=== PATIENT | female | born 1940 | race Caucasian/White ===

== ENCOUNTER 2022-07-19 11:20 | Inpatient (IN) ==
--- NOTE | 2022-07-19 11:39 | Emergency Department Note ---
Trauma HPI General Chief Complaint: Trauma Stated Complaint: Fall 1 wk ago, weakness Time Seen by Provider: 07/19/22 11:37 Source: patient Mode of arrival: ambulatory Limitations: altered mental status History of Present Illness HPI Narrative: Narrative: This pleasant but confused 81-year-old female with a history of COPD, coronary disease and CHF presents emerged part with complaint of fall striking the top of her head 2 weeks prior. Patient is unreliable historian. She thinks she is at [facility] but is not sure. She is not able to tell me if she has had a cough, fever, chills, nausea, vomiting, diarrhea. No further useful history is obtainable from patient only. No other bystanders at bedside for help with history. Related Data Home Medications Medication Instructions Recorded Confirmed diphenhydramine HCl 25 mg capsule 25 mg PO Q8H PRN 04/27/20 07/13/22 Previous Rx's Medication Instructions Recorded food supplemt, lactose-reduced 1 each PO TIDWMEAL #1,422 mL 05/10/20 (Ensure Original oral liquid) escitalopram oxalate 5 mg tablet 5 mg PO QHS #90 tabs 08/19/20 blood-glucose meter (True Metrix See Rx Instructions .Route 07/08/21 Glucose Meter) .COMPLEX #1 ea pen needle, diabetic 31 gauge x #1,200 ea 11/18/21/" (Comfort EZ Pen [place]) insulin glargine 100 unit/mL (3 28 unit (0.28 mL) subcut BID #15 mL 12/06/21 mL) subcutaneous pen (Basaglar KwikPen U-100 Insulin) blood sugar diagnostic (True See Rx Instructions .Route 12/12/21 Metrix Glucose Test Strip) .COMPLEX Type 2 diabetes on insulin therapy #300 strips insulin aspart 14 unit subcut .COMPLEX #15 mL 12/27/21 (niacinamide)(U-100) 100 unit/mL(3 mL) subcutaneous pen (Fiasp FlexTouch U-100 Insulin) ondansetron HCl 4 mg tablet See Rx Instructions .Route 02/07/22 .COMPLEX #30 tabs atorvastatin 80 mg tablet (Lipitor) 80 mg PO QDAY #90 tabs 02/14/22 apixaban 2.5 mg tablet (Eliquis) 2.5 mg PO BID #180 tabs 02/15/22 pantoprazole 40 mg tablet,delayed 40 mg PO QDAY #90 tabs 03/07/22 release potassium chloride 20 mEq 20 meq PO BID #180 tabs 03/16/22 tablet,extended release(part/cryst) (Klor-Con M) diltiazem HCl 360 mg capsule,24 360 mg PO QAM #30 caps 03/28/22 hr,extended release torsemide 10 mg tablet 10 mg PO .3 a day #90 tabs 03/28/22 gabapentin 600 mg tablet See Rx Instructions .Route 05/22/22 .COMPLEX #90 tabs carbidopa 10 mg-levodopa 100 mg See Rx Instructions .Route 05/29/22 tablet .COMPLEX #180 tabs albuterol sulfate 90 mcg/actuation 2 puff inhalation QID PRN 06/16/22 aerosol inhaler shortness of breath or wheezing #18 grams budesonide 160 mcg-glycopyr 9 2 inh inhalation QAM AND QPM #10.7 07/13/22 mcg-formot 4.8 mcg/actuation HFA grams inhaler (Breztri Aerosphere) hydrocodone 7.5 mg-acetaminophen 1 tab PO Q4-6H PRN pain #150 tabs 07/13/22 325 mg tablet dapagliflozin 5 mg tablet 5 mg PO QAM #90 tabs 07/17/22 spironolactone 25 mg tablet 25 mg PO QDAY #90 tabs 07/19/22 Allergies Allergy/AdvReac Type Severity Reaction Status Date / Time losartan Allergy Unknown swelling Verified 07/13/22 11:40 in legs Sulfa (Sulfonamide Allergy Unknown Verified 07/13/22 11:40 Antibiotics) metoprolol AdvReac Severe Weakness, Verified 07/13/22 11:40 dizzy, no appetite. nystatin AdvReac Intermediate states Verified 07/13/22 11:40 falls when on it. Review of Systems ROS ROS Narrative: Narrative: Limitations: ROS unobtainable due to patients medical condition (Probable underlying dementia versus acute confusion. Unable to answer basic questions other than tell me she fell and hurt the top of her head 2 weeks ago.) [facility] Narrative Patient History Narrative: Narrative: Medical/Surgical/Family History All Active Problems (Updated 07/19/22 @ 18:36 by Tanya Baer DO) Pneumonia of right lower lobe due to infectious organism (Acute) Sepsis (Acute) Dehydration (Acute) Atrial fibrillation with rapid ventricular response (Acute) Elevated troponin I level (Acute) Acute UTI (Acute) Contusion of head (Acute) Risk for falls (Acute) Edema (Acute) Panic attack (Acute) Encounter for chronic pain management (Acute) retirement current use of insulin (Acute) Type 2 diabetes mellitus with hyperglycemia (Acute) Chest wall contusion (Acute) Non-compliant patient (Acute) UTI (urinary tract infection) (Acute) Irene infection (Acute) Hypokalemia (Acute) Eczema (Acute) Atrial fibrillation (Acute) Diabetes mellitus type 2, uncontrolled, with complications (Acute) History of esophagogastroduodenoscopy (EGD) (Chronic 01/13/20) History of colonoscopy (Chronic 12/14/18) History of colposcopy (Chronic ~1996) History of shoulder surgery (Chronic ~12/2016) History of left knee replacement (Chronic) History of hernia surgery (Chronic) History of AAA (abdominal aortic aneurysm) repair (Chronic) History of cholecystectomy (Chronic) Hyperlipidemia (Chronic) Hypertension (Chronic) Menopausal symptom (Chronic) Vitamin D deficiency (Chronic) Back pain (Chronic) Insomnia (Chronic) PVD (peripheral vascular disease) (Chronic) Knee pain (Chronic) Lumbar radiculopathy (Chronic) Anxiety (Chronic) Fatigue (Chronic) Allergic rhinitis (Chronic) Depression (Chronic) Vertigo (Chronic) Tobacco user (Chronic) GERD (gastroesophageal reflux disease) (Chronic) Diabetes mellitus (Chronic) Encounter for therapeutic drug level monitoring (Chronic) Hypokalemia (Chronic) Unsteady gait (Chronic) Essential tremor (Chronic) CHF (congestive heart failure) (Chronic) History of abdominal aortic aneurysm (AAA) (Chronic) CAD (coronary artery disease) (Chronic) Pulmonary nodule (Chronic) Peripheral edema (Chronic) Diabetic peripheral neuropathy (Chronic) Ischemic colitis (Chronic) COPD (chronic obstructive pulmonary disease) (Chronic) Weakness (Chronic) Thoracic back pain (Chronic) Medical History (Updated 07/19/22 @ 18:36 by Tanya Baer DO) Allergic rhinitis Anxiety Back pain CAD (coronary artery disease) CHF (congestive heart failure) COPD (chronic obstructive pulmonary disease) Depression Diabetes mellitus Diabetic peripheral neuropathy Encounter for therapeutic drug level monitoring Essential tremor Fatigue GERD (gastroesophageal reflux disease) History of abdominal aortic aneurysm (AAA) Hyperlipidemia Hypertension Hypokalemia Insomnia Ischemic colitis Knee pain Lumbar radiculopathy Menopausal symptom Peripheral edema Pulmonary nodule PVD (peripheral vascular disease) Thoracic back pain Tobacco user Unsteady gait Vertigo Vitamin D deficiency Weakness Surgical History History of AAA (abdominal aortic aneurysm) repair History of cholecystectomy History of colonoscopy (12/14/18) Edwardo Sanchez History of colposcopy (~1996) History of esophagogastroduodenoscopy (EGD) (01/13/20) History of hernia surgery x 2 History of left knee replacement after fall and fracture leg History of shoulder surgery (~12/2016) following arm fracture Family History Other Unknown family medical history Social History Smoking Status: Current every day smoker Alcohol Intake Frequency: does not drink Substance Use: does not use Exam Narrative Narrative: Narrative: General Limitations: altered mental status General appearance: Present alert and in distress (Tachycardic and tachypneic.) Head Head: Present atraumatic, normocephalic and normal inspection Eye Eye: Present normal appearance, PERRL and EOMI; Absent scleral icterus, conjunctival injection, miosis (constriction) or mydriasis (dilation) ENT ENT: Present normal exam, mucous membranes dry (Significantly) and normal ex ternal ear exam Neck Neck: Present normal inspection, full ROM and trachea midline Chest Chest: Present normal inspection and symmetric chest wall rise; Absent tenderness Respiratory Respiratory: Present respiratory distress (Mild with respiratory rate of 28. Oxygen saturation normal at 99.), rales/crackles (Bilateral anterior marte, mid lungs) and prolonged expiratory phase; Absent wheezes, stridor or accessory muscle use Cardiovascular Cardiovascular: Present normal rhythm, tachycardia and normal heart sounds; Absent systolic murmur, diastolic murmur, rubs, gallop, clicks, +S3 or +S4 Adbominal Abdominal: Present soft, diminished bowel sounds (Potentially do to obese body habitus.) and hypoactive bowel sounds; Absent distention, tenderness, guarding, rebound or rigidity Rectal Rectal: Present deferred Bimanual: Present other (Deferred.) Extremities Extremities: Absent pedal edema, pretibial edema or cyanosis Neurological Neurological: Present alert, oriented X3 (Oriented to person but not to place or time.), CN II-XII intact, motor sensory deficit (Moves all extremity spontaneously.) and reflexes normal (Patellar reflexes, bilaterally.); Absent normal gait (Gait not evaluated.) Psychiatric Psychiatric: Present normal affect, normal mood, polite and pleasant Skin Skin: Present warm (WNL), dry and normal color Course Course Course Narrative: 1150: Advised by nursing staff that patient's Troponin T came back elevated at 0.33. Will give aspirin if not already given by EMS. On review patient's first i-stat Troponin also elevated. Will repeat for trend. 1531: Reevaluated, stable. Heart rate occasionally is down into the 120s now. We did give adenosine 6 mg IV push and initially still unchanged heart rate and heart rate was in the 135-140 range and I stopped the tracing and immediately after stopping the tracing I looked back over the monitor and she was 80 bpm. Tracing was turned back to we will able to capture about 6 beats at that rate. Does appear that there is underlying atrial flutter. We will go ahead and give Cardizem 25 delvin per cake bolus followed by Cardizem drip and titrate the drip. Once the heart rate has slowed down we will get a repeat EKG to evaluate for potential STEMI as it is difficult to tell to this point in time on her EKGs. 1800: Care of patient transferred to Dr. Burgos, oncoming ED physician, final diagnosis disposition per his recommendations and discretion. 1820: Dr. Burgos has seen the patient and asked that I go and speak with Dr. Archuleta before I leave as I have the entire story. I have contacted the front worker and asked the charge nurse to go ahead and get a hold of Dr. Murillo. Reevaluation(s) Reevaluation #1: Reevaluated, resting comfortably lying supine with heart rate in the 120s to 135 range. Appears that she is in atrial fibrillation relation. We will use adenosine to slow the rate down and get a better look at her EKG is first EKG is suggestive of some possible ischemic changes. I discussed t his with the patient. She was sleeping but easily awakened to voice. She is agreeable with the plan. RN Daljit notified and pc tech chest and Jameson are notified as well will need a twelve-lead continuous drip during the adenosine push. Time: 15:15 Reevaluation #2: Reevaluated. Stable. Heart rate improved into the upper 90s occasionally increasing up to about 100 8110. We will go ahead and increase her Cardizem drip just a little bit to get that controlled a little better. I advised patient she does have a pneumonia on the right side and that her troponin is elevated and that we will going to repeat the troponin as the previous repeat troponin did not return for some reason. This is to see whether her heart is ryan ving worsening injury or improving. She states understanding of and is in agreement with this. I did advise her that we are going to need to admit her to the hospital as well and she is agreeable with this. Time: 17:27 Consultations Consultation #1: Spoke with Dr. Hoyt, advised him of patient's presentation work-up and findings to this point time. Advised that we are waiting for repeat troponin. He like to see what that value is before he goes ahead and brings her in. I will pass this conversation on to Dr. Burgos, ED provider relieving me. Dr. Hoyt is agreeable with bringing the patient in if her troponin is not climbing. Time: 18:26 Vital Signs Vital signs: Vital Signs Temperature 98.2 F 07/19/22 11:26 Pulse Rate 143 H 07/19/22 11:26 Respiratory Rate 17 07/19/22 11:26 Blood Pressure 144/107 07/19/22 11:26 Pulse Oximetry (%) 93 07/19/22 11:26 Oxygen Delivery Method 07/19/22 11:26 Oxygen Flow Rate (L/min) 4 07/19/22 11:26 Temperature 98.2 F 07/19/22 11:26 Pulse Rate 103 H 07/19/22 17:50 Respiratory Rate 23 H 07/19/22 17:50 Blood Pressure 127/79 07/19/22 17:50 Pulse Oximetry (%) 88 L 07/19/22 17:50 Oxygen Delivery Method 07/19/22 11:26 Oxygen Flow Rate (L/min) 4 07/19/22 11:26 [facility] MDM Narrative Medical decision making narrative: Narrative: Patient presents emerged part with complaint of trauma to the head. This occurred 2 weeks prior to arrival. Patient is also tachycardic and appears to be a little bit altered. Sepsis work-up began as well. EKG did show that she has atrial fibrillation with rapid ventricular response and questionable ST elevation in the anterior leads. I did attempt adenosine 6 mg IV push and this did slow her rate down enough to analyze it for just a few beats and I was not convinced that she was having a heart attack or STEMI at that time. We did give her Cardizem subsequently 20 mg IV push and then titrated to drip to get her heart rate controlled under 100 consistently. Her first troponin is elevated at 0.33 and repeat troponin was ordered and obtained before reason did not result from the lab. Repeat troponin is pending at the time of shift change at 1815 hrs. Chest x-ray was obtained did show the patient does have an infiltrate to the right lower lobe. Blood cultures were obtained and she was started on R ocephin 2 g IV. Repeat EKG was performed after patient had a heart rate decreased to 97 bpm. This did show atrial fibrillation without any convincing evidence of STEMI. I think that her troponin elevation is likely secondary to demand related ischemia. Again repeat troponin is pending. Her CBC did show that she had a white count of 14.7 with RDW elevated which is chronic for this patient and immature granulocytes were elevated at 0.6. Left signs were elevated at 12.1%. And monocytes were elevated 1.23 with immature Gran sites high at 0.09 and absolute neutrophils elevated 11.41. Chemistry is normal except for BUN elevated at 35 and creatinine is normal at 1.0 with POC glucose elevated 314. Patient does have underlying type 2 diabetes and is insulin- dependent. His calcium was normal at 1.17 total bilirubin, direct bilirubin, AST, ALT all within normal limits. Alkaline phosphatase is elevated 147 and chronically so for this patient. Troponin T was ordered inadvertently and this was elevated 0.12. NT proBNP is elevated 5246 without any obvious congestive changes on the portable chest x-ray. Procalcitonin was elevated at 0.20 supporting a diagnosis of pneumonia and potentially sepsis as heart rate is elevated and she was tachypneic on arrival as well. Urinalysis was obtained that showed cloudy urine with a trace amount of protein and 500 glucose with urine ketones elevated 15 suggesting dehydration and urine white blood cells elevated at 13 with many bacteria and hyaline casts at 33 and culture is indicated. Patient did receive Rocephin for her pneumonia which will likely treat her UTI as well. At 1800 hrs. at the time of shift change care was transferred to Dr. Burgos, awaiting repeat troponin at this point in time to determine if this is more of a demand ischemia versus an IL. Sepsis Sepsis Identified: Yes Time Zero: 1230 Differential Diagnosis Differential Diagnosis: A. fib with RVR, IL, ACS, pneumonia, UTI, dehydration, electrolyte abnormal Medical Records Medical records reviewed: Yes I reviewed the patient's medical records. Lab Data Result diagrams: 07/19/22 11:45 Labs: Lab Results 07/19/22 07/19/22 07/19/22 Range/Units 11:37 11:38 11:45 WBC 14.7 H (4.5-11.0) K/mcL RBC 4.53 (3.59-5.38) M/mcL Hgb 13.2 (11.2-15.7) g/dL Hct 41.4 (34.1-44.9) % POC Hct 44.0 (36-48) MCV 91.4 (80.0-100.0) fL MCH 29.1 (26.0-34.0) pg MCHC 31.9 (31.0-36.0) g/dL RDW 16.2 H (11.5-14.5) % Plt Count 401 (140-440) K/mcL MPV 10.1 (8.8-12.5) fL Immature Gran % (Auto) 0.6 H (0.0-0.5) % Neut % (Auto) 77.4 (38.0-78.0) % Lymph % (Auto) 12.1 L (15.5-49.0) % Pine % (Auto) 8.4 (1.0-12.0) % Eos % (Auto) 1.0 (0.0-7.0) % Baso % (Auto) 0.5 (0.0-2.0) % Lymph # (Auto) 1.78 (1.50-4.80) K/mcL Pine # (Auto) 1.23 H (0.10-0.90) K/mcL Eos # (Auto) 0.14 (0.00-0.70) K/mcL Baso # (Auto) 0.08 (0.00-0.30) K/mcL Immature Gran # 0.09 H (0.00-0.05) K/mcl Absolute Neutrophils 11.41 H (1.80-8.00) K/mcL POC VBG pH (7.32-7.42) POC VBG pCO2 at Temp (41-51) POC VBG pO2 (25-40) POC VBG HCO3 (24-28) POC VBG Total CO2 (25-29) POC Venous O2 Sat (40-70) POC VBG Base Excess (-2-2) VBG Lactic Acid (0.5-2) POC Sodium 136 (133-145) POC Potassium 4.4 (3.3-5.1) POC Chloride 103 (96-108) POC Total CO2 27.0 (22-30) POC BUN 35 H (6-20) POC Creatinine 1.0 (0.6-1.2) POC Glucose 314 H (70-105) POC WB Ioniz Calcium 1.17 (1.16-1.32) Total Bilirubin (0.1-1.0) mg/dL Direct Bilirubin (0-0.3) mg/dL AST (<32) U/L ALT (<40) U/L Alkaline Phosphatase (39-117) U/L Troponin T (<0.03) ng/mL NT-Pro-B Natriuret Pep (<450.0) pg/mL Total Protein (5.9-8.4) gm/dL Albumin (3.2-5.2) gm/dL Globulin (2.2-3.7) gm/dL Procalcitonin (<0.10) ng/mL Urine Color Urine Appearance (Clear) Urine pH (5.0-9.0) Ur Specific [place] (1.000-1.035) Urine Protein (Negative) mg/dL Urine Glucose (UA) (Negative) mg/dL Urine Ketones (Negative) mg/dL Urine Occult Blood (Negative) florencio/mcL Urine Nitrate (Negative) Urine Bilirubin (Negative) mg/dL Urine Urobilinogen mg/dL Ur Leukocyte Esterase (Negative) /uL Urine RBC (0-3) /hpf Urine WBC (0-4) /hpf Ur Squamous Epith Cells (0-4) /hpf Urine Bacteria (0) /hpf Hyaline Casts (0-2) /lph Ur Culture Indicated? POC Troponin I 0.33 H (0.00-0.08) 07/19/22 07/19/22 07/19/22 Range/Units 11:45 11:45 11:56 WBC (4.5-11.0) K/mcL RBC (3.59-5.38) M/mcL Hgb (11.2-15.7) g/dL Hct (34.1-44.9) % POC Hct (36-48) MCV (80.0-100.0) fL MCH (26.0-34.0) pg MCHC (31.0-36.0) g/dL RDW (11.5-14.5) % Plt Count (140-440) K/mcL MPV (8.8-12.5) fL Immature Gran % (Auto) (0.0-0.5) % Neut % (Auto) (38.0-78.0) % Lymph % (Auto) (15.5-49.0) % Pine % (Auto) (1.0-12.0) % Eos % (Auto) (0.0-7.0) % Baso % (Auto) (0.0-2.0) % Lymph # (Auto) (1.50-4.80) K/mcL Pine # (Auto) (0.10-0.90) K/mcL Eos # (Auto) (0.00-0.70) K/mcL Baso # (Auto) (0.00-0.30) K/mcL Immature Gran # (0.00-0.05) K/mcl Absolute Neutrophils (1.80-8.00) K/mcL POC VBG pH (7.32-7.42) POC VBG pCO2 at Temp (41-51) POC VBG pO2 (25-40) POC VBG HCO3 (24-28) POC VBG Total CO2 (25-29) POC Venous O2 Sat (40-70) POC VBG Base Excess (-2-2) VBG Lactic Acid (0.5-2) POC Sodium (133-145) POC Potassium (3.3-5.1) POC Chloride (96-108) POC Total CO2 (22-30) POC BUN (6-20) POC Creatinine (0.6-1.2) POC Glucose (70-105) POC WB Ioniz Calcium (1.16-1.32) Total Bilirubin 0.4 (0.1-1.0) mg/dL Direct Bilirubin < 0.2 (0-0.3) mg/dL AST 15 (<32) U/L ALT 28 (<40) U/L Alkaline Phosphatase 147 H (39-117) U/L Troponin T 0.12 H* (<0.03) ng/mL NT-Pro-B Natriuret Pep 5246.0 H (<450.0) pg/mL Total Protein 7.4 (5.9-8.4) gm/dL Albumin 4.0 (3.2-5.2) gm/dL Globulin 3.4 (2.2-3.7) gm/dL Procalcitonin 0.20 H (<0.10) ng/mL Urine Color Urine Appearance (Clear) Urine pH (5.0-9.0) Ur Specific [place] (1.000-1.035) Urine Protein (Negative) mg/dL Urine Glucose (UA) (Negative) mg/dL Urine Ketones (Negative) mg/dL Urine Occult Blood (Negative) florencio/mcL Urine Nitrate (Negative) Urine Bilirubin (Negative) mg/dL Urine Urobilinogen mg/dL Ur Leukocyte Esterase (Negative) /uL Urine RBC (0-3) /hpf Urine WBC (0-4) /hpf Ur Squamous Epith Cells (0-4) /hpf Urine Bacteria (0) /hpf Hyaline Casts (0-2) /lph Ur Culture Indicated? POC Troponin I (0.00-0.08) 07/19/22 07/19/22 07/19/22 Range/Units 12:50 13:36 15:09 WBC (4.5-11.0) K/mcL RBC (3.59-5.38) M/mcL Hgb (11.2-15.7) g/dL Hct (34.1-44.9) % POC Hct (36-48) MCV (80.0-100.0) fL MCH (26.0-34.0) pg MCHC (31.0-36.0) g/dL RDW (11.5-14.5) % Plt Count (140-440) K/mcL MPV (8.8-12.5) fL Immature Gran % (Auto) (0.0-0.5) % Neut % (Auto) (38.0-78.0) % Lymph % (Auto) (15.5-49.0) % Pine % (Auto) (1.0-12.0) % Eos % (Auto) (0.0-7.0) % Baso % (Auto) (0.0-2.0) % Lymph # (Auto) (1.50-4.80) K/mcL Pine # (Auto) (0.10-0.90) K/mcL Eos # (Auto) (0.00-0.70) K/mcL Baso # (Auto) (0.00-0.30) K/mcL Immature Gran # (0.00-0.05) K/mcl Absolute Neutrophils (1.80-8.00) K/mcL POC VBG pH 7.62 H* 7.34 (7.32-7.42) POC VBG pCO2 at Temp 16.6 L* 48.0 (41-51) POC VBG pO2 87 H 24 L (25-40) POC VBG HCO3 17.1 L 25.6 (24-28) POC VBG Total CO2 18.0 L 27.0 (25-29) POC Venous O2 Sat 98.0 H 39.0 L (40-70) POC VBG Base Excess -4.0 L 0 (-2-2) VBG Lactic Acid 1.8 1.2 (0.5-2) POC Sodium (133-145) POC Potassium (3.3-5.1) POC Chloride (96-108) POC Total CO2 (22-30) POC BUN (6-20) POC Creatinine (0.6-1.2) POC Glucose (70-105) POC WB Ioniz Calcium (1.16-1.32) Total Bilirubin (0.1-1.0) mg/dL Direct Bilirubin (0-0.3) mg/dL AST (<32) U/L ALT (<40) U/L Alkaline Phosphatase (39-117) U/L Troponin T (<0.03) ng/mL NT-Pro-B Natriuret Pep (<450.0) pg/mL Total Protein (5.9-8.4) gm/dL Albumin (3.2-5.2) gm/dL Globulin (2.2-3.7) gm/dL Procalcitonin (<0.10) ng/mL Urine Color Yellow Urine Appearance Cloudy A (Clear) Urine pH 5.0 (5.0-9.0) Ur Specific [place] >= 1.030 (1.000-1.035) Urine Protein Trace A (Negative) mg/dL Urine Glucose (UA) 500 A (Negative) mg/dL Urine Ketones 15 A (Negative) mg/dL Urine Occult Blood Negative (Negative) florencio/mcL Urine Nitrate Negative (Negative) Urine Bilirubin Negative (Negative) mg/dL Urine Urobilinogen Normal mg/dL Ur Leukocyte Esterase Negative (Negative) /uL Urine RBC 0 (0-3) /hpf Urine WBC 13 H (0-4) /hpf Ur Squamous Epith Cells 0 (0-4) /hpf Urine Bacteria Many A (0) /hpf Hyaline Casts 33 H (0-2) /lph Ur Culture Indicated? yes POC Troponin I (0.00-0.08) Radiology Data Radiology results reviewed: Yes I reviewed the patient's radiology results. Radiology results narrative: CT of the head did not show any acute process and no bleeding since previous injury approximately 2 weeks prior. 1 view chest x-ray does show right lower lobe infiltrate. Please see full radiology report for full details. EKG Data EKG #1: EKG attestation: Yes I reviewed and interpreted this EKG. EKG results narrative: EKG obtained this date at 1132 hrs. interpreted by myself at 1136 hrs. shows wide QRS tachycardia 147 bpm. QRS duration is 123 ms. AL interval is absent there is a nonspecific interventricular conduction delay without right bundle spot or left bundle spot. QT is normal and QTC is prolonged at 503 ms. I do not see any distinct ST elevation however there is some questionable slight ST elevation in lead of 1 mm in leads V1, V2 and questionable ST elevation in lead V3. Inferior leads do not have any significant reciprocal changes although there is what appears to be ST depression in leads II of less than 1 mm. No acute T wave inversions noted.) Previous EKG on October 06, 2021 atrial fibrillation at a rate of 122 bpm is now replaced with a wide QRS tachycardia with minimal with prolongation with a QRS duration 123 ms on today's EKG. The appearance of the QRS complexes in the inferior leads is different and the deep ST depression in lead II and lead aVF are new when compared to previous EKG. Previous EKG did show that there was ST depression of approximately 1 mm in leads II and no ST depression in lead aVF but there was a T wave inversion lead aVF previously that is no longer present. Abnormal EKG. Question ischemic allen bishop. EKG #2: EKG results narrative: Repeat EKG obtained at 1628 hrs. interpreted by myself at 1634 hrs. does show atrial fibrillation at a rate of 97 bpm with left axis deviation with QRS duration slightly prolonged 129 ms and QT normal at 393 ms and QTC prolonged to 500 ms. There is nonspecific interventricular conduction delay with, probably lateral infarct age-indeterminate with T waves inverted in leads I, aVL, questionably in V5 and questionably and V6. Old anterior infarct present with Q greater than [address] and T waves in V2 through V5. I do not see any convincing evidence of ST elevation greater than 1 mm in any 2 protective leads. No STEMI is present. There are nonspecific T wave abnormalities noted in leads I, aVL, V5 and V6. No STEMI. CC TIME Critical Care Time Critical Care Time: Yes Total Critical Care Time: 45 Attestation: Please see chart and nurses note for inclusion exclusion criteria. Time includes consultation with other providers, bedside care of the patient and reevaluation and documentation. Discharge Plan Patient/Caregiver Discharge Instructions Pt seen by EMERGENCY DEPARTMENT/PA only: No Clinical Impression: Pneumonia of right lower lobe due to infectious organism, Sepsis, Dehydration, Atrial fibrillation with rapid ventricular response, Elevated troponin I level, Acute UTI Patient Disposition: Still a Patient Condition: Fair Follow up with: Shonna Heck ARNP [Primary Care Provider] - Prescriptions: No Action diphenhydramine HCl 25 mg capsule 25 mg PO Q8H PRN Ensure Original Liquid 1 each PO TIDWMEAL Qty: 1422 6RF escitalopram oxalate 5 mg tablet 5 mg PO QHS Qty: 90 1RF blood-glucose meter [True Metrix Glucose Meter] Misc See Rx Instructions .ROUTE .COMPLEX Qty: 1 3RF Dose Instruction: TEST four times a day Rx Instructions: TEST four times a day (DME) pen needle, diabetic [Comfort EZ Pen [place]] 31 gauge x 5/16" needle See Rx Instructions .ROUTE .MEDSUPPLY Qty: 1200 3RF Rx Instructions: Use to inject Fiasp and Lantus Basaglar KwikPen U-100 Insulin 100 unit/mL (3 mL) insulin pen 28 unit SUB-Q BID Qty: 15 0RF True Metrix Glucose Test Strip Strip See Rx Instructions .ROUTE .COMPLEX Qty: 300 3RF Dose Instruction: use 1 TEST STRIP to TEST BLOOD SUGAR four times a day Rx Instructions: use 1 TEST STRIP to TEST BLOOD SUGAR four times a day insulin aspart (niacinamide) 100 unit/mL (3 mL) insulin pen 14 unit SUB-Q .COMPLEX MDD 80 units Qty: 15 3RF Rx Instructions: 14 units subcut ; ondansetron HCl 4 mg tablet See Rx Instructions .ROUTE .COMPLEX Qty: 30 1RF Dose Instruction: TAKE ONE TABLET BY MOUTH NEEDED FOR NAUSEA, MAX 2/DAY Rx Instructions: TAKE ONE TABLET BY MOUTH NEEDED FOR NAUSEA, MAX 2/DAY Eliquis 2.5 mg tablet 2.5 mg PO BID Qty: 180 3RF pantoprazole 40 mg tablet,delayed release (DR/EC) 40 mg PO QDAY Qty: 90 1RF potassium chloride [Klor-Con M20] 20 mEq tablet,ER particles/crystals 20 meq PO BID Qty: 180 1RF gabapentin 600 mg tablet See Rx Instructions .ROUTE .COMPLEX Qty: 90 3RF Dose Instruction: take 1 tablet by mouth three times a day Rx Instructions: take 1 tablet by mouth three times a day carbidopa-levodopa 10-100 mg tablet See Rx Instructions .ROUTE .COMPLEX Qty: 180 1RF Dose Instruction: take 1 tablet by mouth twice a day Rx Instructions: take 1 tablet by mouth twice a day albuterol sulfate 90 mcg/actuation HFA aerosol inhaler 2 puff INHALATION QID PRN (Reason: shortness of breath or wheezing) Qty: 18 3RF dapagliflozin 5 mg tablet 5 mg PO QAM Qty: 90 3RF spironolactone 25 mg tablet 25 mg PO QDAY Qty: 90 0RF atorvastatin [Lipitor] 80 mg tablet 80 mg PO QDAY Qty: 90 1RF diltiazem HCl 360 mg capsule,extended release 24 hr 360 mg PO QAM Qty: 30 4RF torsemide 10 mg tablet 10 mg PO .3 a day Qty: 90 3RF Rx Instructions: take 20mg in morning, and 10mg around noon Breztri Aerosphere 160-9-4.8 mcg/actuation HFA aerosol inhaler 2 inh inhalation QAM AND QPM Qty: 10.7 5RF hydrocodone-acetaminophen 7.5-325 mg tablet 1 tab PO Q4-6H PRN (Reason: pain) Qty: 150 0RF Rx Instructions: Can fill can fill 07/28/22
[2022-07-19 11:43] LABS: POC Calcium, Ionized 1.17 (1.16-1.32); POC Potassium 4.4 (3.3-5.1)
[2022-07-19] MEDS ORDERED: ASPIRIN 81 MG TAB.CHEW CHEWED ONE ×2 (11:52→15:06)
--- NOTE | 2022-07-19 12:19 | XRay Report ---
CLINICAL INFORMATION: Trauma three weeks prior. COMPARISON: 03/28/2022 TECHNIQUE: Portable FINDINGS: Mild cardiomegaly is unchanged. Mediastinum and pulmonary vessels are normal. Moderate right basilar infiltrate as developed. There is minor atelectasis in the left base. No definite effusion.. IMPRESSION: Right basilar infiltrate with small right pleural effusion. Interpreted and Authenticated by: Noe Hall 07/19/22
--- NOTE | 2022-07-19 12:25 | Cat Scan Report ---
CLINICAL INFORMATION: Acute confusion and headache fall one week prior COMPARISON: None. TECHNIQUE: 2.5 mm helical slices were obtained in the skull base to vertex. Following reconstruction, axial reformatted images were reviewed at bone and parenchymal windows. The exam was performed using radiation dose optimization techniques including, but not limited to, automated exposure control, adjustment of the mA and/or kV according to patient size and use of iterative reconstruction technique. FINDINGS: The ventricles, sulci, fissures, and cisterns are moderately enlarged compatible with moderate atrophy. No extra-axial fluid collections are identified. Moderate patchy chronic ischemic changes, in the deep cerebral white matter, are expected for age. 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 Bone windows show no osseous abnormality. IMPRESSION: Moderate atrophy and chronic ischemic changes in the deep cerebral white more than typically seen for age. No acute findings Interpreted and Authenticated by: Noe Hall 07/19/22
[2022-07-19 12:38] LABS: Basophils # (Auto) 0.08 K/mcL (0.00-0.30); Basophils % (Auto) 0.5 % (0.0-2.0); Eosinophils # (Auto) 0.14 K/mcL (0.00-0.70); Hematocrit 41.4 % (34.1-44.9); Hemoglobin 13.2 g/dL (11.2-15.7); Lymphocytes # (Auto) 1.78 K/mcL (1.50-4.80); Lymphocytes % (Auto) 12.1 % (15.5-49.0); Mean Cell Volume 91.4 fL (80.0-100.0); Mean Corpuscular HGB Conc 31.9 g/dL (31.0-36.0); Mean Platelet Volume 10.1 fL (8.8-12.5); Monocytes # (Auto) 1.23 K/mcL (0.10-0.90); Monocytes % (Auto) 8.4 % (1.0-12.0); Neutrophils % (Auto) 77.4 % (38.0-78.0); Platelet Count 401 K/mcL (140-440); RBC 4.53 M/mcL (3.59-5.38); Red Cell Distribution Width 16.2 % (11.5-14.5); WBC 14.7 K/mcL (4.5-11.0)
[2022-07-19] MEDS: 0.9 % SODIUM CHLORIDE 1,000 ML IV SCH ×2 (12:59→16:26)
[2022-07-19 13:32] LABS: ALT/SGPT 28 U/L (<40); AST/SGOT 15 U/L (<32); Alkaline Phosphatase 147 U/L (39-117); Bilirubin,Direct < 0.2 mg/dL (0-0.3); Bilirubin,Total 0.4 mg/dL (0.1-1.0); Globulin 3.4 gm/dL (2.2-3.7)
[2022-07-19] MEDS ORDERED: cefTRIAXone 2 GM in DEXTROSE 5% IN WATER 50 ML IV ONE (15:14)
[2022-07-19] MEDS ORDERED: ADENOSINE 3 MG/ML VIAL IV ONE ×2 (15:18)
[2022-07-19] MEDS ORDERED: DILTIAZEM 25 MG/5 ML VIAL IV ONE (15:34)
[2022-07-19 15:59] LABS: Appearance,Urine CLOUDY (Clear); Bacteria,Urine MANY /hpf (0); Bilirubin,Urine NEGATIVE (Negative); Color,Urine YELLOW; Culture Indicated,Urine yes; Glucose,Urine (UA) 500 mg/dL (Negative); Ketones,Urine 15 mg/dL (Negative); Leukocyte Esterase,Urine NEGATIVE /uL (Negative); Nitrate,Urine NEGATIVE (Negative); Protein,Urine TRACE mg/dL (Negative); Specific Gravity,Urine >= 1.030 (1.000-1.035); Urine Blood NEGATIVE ery/mcL (Negative); Urine Hyaline Cast 33 /lph (0-2); Urine RBC 0 /hpf (0-3); Urine Squamous Epithelial Cell 0 /hpf (0-4); Urine WBC 13 /hpf (0-4); Urobilinogen,Urine Normal
[2022-07-19] MEDS: DILTIAZEM 125 MG in DEXTROSE 5% IN WATER 100 ML IV SCH (16:20)
--- NOTE | 2022-07-19 19:19 | Internal Med History&Physical ---
HPI History of Present Illness Patient information: Note initiated : 07/19/22 at 7:12 pm Service Date, if different from initiated Date: [] Patient: Candice Khan a 81 y/o F admitted on for Fall 1 wk ago, weakness. Chief Complaint: [] History of present illness: Ms. Khan is a 81 year old F Who presents the ED because she was not acting herself. Per the notes neighbor found her in her chair stating she was not acting herself. Patient did hit her head about a week ago after falling from the toilet. States that she was sitting too long and her legs became numb and when she got up she fell hitting her head. In the ED her heart rate was 130-140. Head CT showed moderate atrophy and chronic ischemic changes throughout. Patient's only complaint is that she does have a headache and some pain from the lump where she hit her head. She was confused with dates when she arrived. When I saw her she said it was 1972 but knew she was at [facility]. She knew her name and birthdate. She says she believes it was her neighbor that called. Patient denies any fever chills nausea or vomiting. She denies any chest pain or shortness of breath. She does have a cough which is new. She states she has phlegm but she is not able to cough it out. She had a mild leukocytosis of 14 7. Blood glucose was elevated 314. In the ED she was worked up and evaluated found to have a right lower lobe infiltrate on chest x-ray and treated for pneumonia. She had A. fib RVR possibly flutter. Her initial rate was 147. She also had a troponin of 0.33 and her follow-up with 0.42. She denies any chest pain and EKG nonspecific. She was put on a diltiazem drip which improved her heart rate. She was also found to have a UTI in the ED was started on treatment for that. Patient says she has not done well since her heart medication was changed by Dr. Arellano. She told her pharmacy that but they said it was the same medication. Review of Systems: Pertinent positives as above. Denies fever/chills/nausea/vomiting/chest or abdominal pain/dyspnea/diarrhea. 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 (Acute) Type 2 diabetes mellitus with hyperglycemia (Acute) Chest wall contusion (Acute) Non-compliant patient (Acute) UTI (urinary tract infection) (Acute) Irene infection (Acute) Hypokalemia (Acute) Eczema (Acute) Atrial fibrillation (Acute) Diabetes mellitus type 2, uncontrolled, with complications (Acute) History of esophagogastroduodenoscopy (EGD) (Chronic 01/13/20) History of colonoscopy (Chronic 12/14/18) History of colposcopy (Chronic ~1996) History of shoulder surgery (Chronic ~12/2016) History of left knee replacement (Chronic) History of hernia surgery (Chronic) History of AAA (abdominal aortic aneurysm) repair (Chronic) History of cholecystectomy (Chronic) Hyperlipidemia (Chronic) Hypertension (Chronic) Menopausal symptom (Chronic) Vitamin D deficiency (Chronic) Back pain (Chronic) Insomnia (Chronic) PVD (peripheral vascular disease) (Chronic) Knee pain (Chronic) Lumbar radiculopathy (Chronic) Anxiety (Chronic) Fatigue (Chronic) Allergic rhinitis (Chronic) Depression (Chronic) Vertigo (Chronic) Tobacco user (Chronic) GERD (gastroesophageal reflux disease) (Chronic) Diabetes mellitus (Chronic) Encounter for therapeutic drug level monitoring (Chronic) Hypokalemia (Chronic) Unsteady gait (Chronic) Essential tremor (Chronic) CHF (congestive heart failure) (Chronic) History of abdominal aortic aneurysm (AAA) (Chronic) CAD (coronary artery disease) (Chronic) Pulmonary nodule (Chronic) Peripheral edema (Chronic) Diabetic peripheral neuropathy (Chronic) Ischemic colitis (Chronic) COPD (chronic obstructive pulmonary disease) (Chronic) Weakness (Chronic) Thoracic back pain (Chronic) Medical History (Updated 07/19/22 @ 18:36 by Tanya Baer DO) Allergic rhinitis Anxiety Back pain CAD (coronary artery disease) CHF (congestive heart failure) COPD (chronic obstructive pulmonary disease) Depression Diabetes mellitus Diabetic peripheral neuropathy Encounter for therapeutic drug level monitoring Essential tremor Fatigue GERD (gastroesophageal reflux disease) History of abdominal aortic aneurysm (AAA) Hyperlipidemia Hypertension Hypokalemia Insomnia Ischemic colitis Knee pain Lumbar radiculopathy Menopausal symptom Peripheral edema Pulmonary nodule PVD (peripheral vascular disease) Thoracic back pain Tobacco user Unsteady gait Vertigo Vitamin D deficiency Weakness Surgical History History of AAA (abdominal aortic aneurysm) repair History of cholecystectomy History of colonoscopy (12/14/18) Edwardo Sanchez History of colposcopy (~1996) History of esophagogastroduodenoscopy (EGD) (01/13/20) History of hernia surgery x 2 History of left knee replacement after fall and fracture leg History of shoulder surgery (~12/2016) following arm fracture Family History Other Unknown family medical history Social History household members: alone marital status: smoking status: Current every day smoker counseling given: patient declined alcohol intake frequency: does not drink substance use type: does not use MEDS/ALLERGIES Home Medications and Allergies Home Medications Medication Instructions Recorded Confirmed Type diphenhydramine HCl 25 mg capsule 25 mg PO Q8H PRN 04/27/20 07/13/22 History food supplemt, lactose-reduced 1 each PO TIDWMEAL #1,422 mL 05/10/20 07/13/22 Rx (Ensure Original oral liquid) escitalopram oxalate 5 mg tablet 5 mg PO QHS #90 tabs 08/19/20 07/13/22 Rx blood-glucose meter (True Metrix See Rx Instructions .Route 07/08/21 07/13/22 Rx Glucose Meter) .COMPLEX #1 ea pen needle, diabetic 31 gauge x #1,200 ea 11/18/21 07/13/22 Rx 5/16" (Comfort EZ Pen [place]) insulin glargine 100 unit/mL (3 28 unit (0.28 mL) subcut BID #15 mL 12/06/21 07/13/22 Rx mL) subcutaneous pen (Basaglar KwikPen U-100 Insulin) blood sugar diagnostic (True See Rx Instructions .Route 12/12/21 07/13/22 Rx Metrix Glucose Test Strip) .COMPLEX Type 2 diabetes on insulin therapy #300 strips insulin aspart 14 unit subcut .COMPLEX #15 mL 12/27/21 07/13/22 Rx (niacinamide)(U-100) 100 unit/mL(3 mL) subcutaneous pen (Fiasp FlexTouch U-100 Insulin) ondansetron HCl 4 mg tablet See Rx Instructions .Route 02/07/22 07/13/22 Rx .COMPLEX #30 tabs atorvastatin 80 mg tablet (Lipitor) 80 mg PO QDAY #90 tabs 02/14/22 07/13/22 Rx apixaban 2.5 mg tablet (Eliquis) 2.5 mg PO BID #180 tabs 02/15/22 07/13/22 Rx pantoprazole 40 mg tablet,delayed 40 mg PO QDAY #90 tabs 03/07/22 07/13/22 Rx release potassium chloride 20 mEq 20 meq PO BID #180 tabs 03/16/22 07/13/22 Rx tablet,extended release(part/cryst) (Klor-Con M) diltiazem HCl 360 mg capsule,24 360 mg PO QAM #30 caps 03/28/22 07/13/22 Rx hr,extended release torsemide 10 mg tablet 10 mg PO .3 a day #90 tabs 03/28/22 07/13/22 Rx gabapentin 600 mg tablet See Rx Instructions .Route 05/22/22 07/13/22 Rx .COMPLEX #90 tabs carbidopa 10 mg-levodopa 100 mg See Rx Instructions .Route 05/29/22 07/13/22 Rx tablet .COMPLEX #180 tabs albuterol sulfate 90 mcg/actuation 2 puff inhalation QID PRN 06/16/22 07/13/22 Rx aerosol inhaler shortness of breath or wheezing #18 grams budesonide 160 mcg-glycopyr 9 2 inh inhalation QAM AND QPM #10.7 07/13/22 07/13/22 Rx mcg-formot 4.8 mcg/actuation HFA grams inhaler (Breztri Aerosphere) hydrocodone 7.5 mg-acetaminophen 1 tab PO Q4-6H PRN pain #150 tabs 07/13/22 07/13/22 Rx 325 mg tablet dapagliflozin 5 mg tablet 5 mg PO QAM #90 tabs 07/17/22 Rx spironolactone 25 mg tablet 25 mg PO QDAY #90 tabs 07/19/22 Rx Allergies Allergy/AdvReac Type Severity Reaction Status Date / Time losartan Allergy Unknown swelling Verified 07/13/22 11:40 in legs Sulfa (Sulfonamide Allergy Unknown Verified 07/13/22 11:40 Antibiotics) metoprolol AdvReac Severe Weakness, Verified 07/13/22 11:40 dizzy, no appetite. nystatin AdvReac Intermediate states Verified 07/13/22 11:40 falls when on it. EXAM Constitutional Vitals: Temp Pulse Resp BP Pulse Ox O2 Del Method O2 Flow Rate 98.2 F 103 H 23 H 131/60 99 4 07/19/22 11:26 07/19/22 17:50 07/19/22 17:50 07/19/22 18:57 07/19/22 18:57 07/19/22 11:26 07/19/22 11:26 Exam: General: Alert, Awake, No acute Distress, obese Eyes/N/T: EOMI, PERRL, dry MM Head/Neck: neck supple, normocephalic atraumatic CV: Irregular, No murmurs, normal s1/s2 Pulm: Mild right-sided rhonchi and wheezing Abd: soft, nontender, +BS x4 Ext: no clubbing/cyanosis, 2-3+ b/l LE edema Neuro: Alert, no focal deficits, moves all extremities, CN 2-12 grossly intact, sensations intact b/l upper/lower Skin: warm/dry DATA Data Completed and Pending Labs: Labs from last 24 hours 07/19/22 07/19/22 07/19/22 18:20 15:09 13:36 WBC RBC Hgb Hct POC Hct MCV MCH MCHC RDW Plt Count MPV Immature Gran % (Auto) Neut % (Auto) Lymph % (Auto) [place] % (Auto) Eos % (Auto) Baso % (Auto) Lymph # (Auto) [place] # (Auto) Eos # (Auto) Baso # (Auto) Immature Gran # Absolute Neutrophils POC VBG pH 7.34 7.62 H* POC VBG pCO2 at Temp 48.0 16.6 L* POC VBG pO2 24 L 87 H POC VBG HCO3 25.6 17.1 L POC VBG Total CO2 27.0 18.0 L POC Venous O2 Sat 39.0 L 98.0 H POC VBG Base Excess 0 -4.0 L VBG Lactic Acid 1.2 1.8 POC Sodium POC Potassium POC Chloride POC Total CO2 POC BUN POC Creatinine POC Glucose POC WB Ioniz Calcium Total Bilirubin Direct Bilirubin AST ALT Alkaline Phosphatase Troponin T NT-Pro-B Natriuret Pep Total Protein Albumin Globulin Procalcitonin Urine Color Urine Appearance Urine pH Ur Specific [place] Urine Protein Urine Glucose (UA) Urine Ketones Urine Occult Blood Urine Nitrate Urine Bilirubin Urine Urobilinogen Ur Leukocyte Esterase Urine RBC Urine WBC Ur Squamous Epith Cells Urine Bacteria Hyaline Casts Ur Culture Indicated? POC Troponin I 0.42 H 07/19/22 07/19/22 07/19/22 12:50 11:56 11:45 WBC RBC Hgb Hct POC Hct MCV MCH MCHC RDW Plt Count MPV Immature Gran % (Auto) Neut % (Auto) Lymph % (Auto) [place] % (Auto) Eos % (Auto) Baso % (Auto) Lymph # (Auto) [place] # (Auto) Eos # (Auto) Baso # (Auto) Immature Gran # Absolute Neutrophils POC VBG pH POC VBG pCO2 at Temp POC VBG pO2 POC VBG HCO3 POC VBG Total CO2 POC Venous O2 Sat POC VBG Base Excess VBG Lactic Acid POC Sodium POC Potassium POC Chloride POC Total CO2 POC BUN POC Creatinine POC Glucose POC WB Ioniz Calcium Total Bilirubin Direct Bilirubin AST ALT Alkaline Phosphatase Troponin T 0.12 H* NT-Pro-B Natriuret Pep Total Protein Albumin Globulin Procalcitonin 0.20 H Urine Color Yellow Urine Appearance Cloudy A Urine pH 5.0 Ur Specific [place] >= 1.030 Urine Protein Trace A Urine Glucose (UA) 500 A Urine Ketones 15 A Urine Occult Blood Negative Urine Nitrate Negative Urine Bilirubin Negative Urine Urobilinogen Normal Ur Leukocyte Esterase Negative Urine RBC 0 Urine WBC 13 H Ur Squamous Epith Cells 0 Urine Bacteria Many A Hyaline Casts 33 H Ur Culture Indicated? yes POC Troponin I 07/19/22 07/19/22 07/19/22 11:45 11:45 11:38 WBC 14.7 H RBC 4.53 Hgb 13.2 Hct 41.4 POC Hct 44.0 MCV 91.4 MCH 29.1 MCHC 31.9 RDW 16.2 H Plt Count 401 MPV 10.1 Immature Gran % (Auto) 0.6 H Neut % (Auto) 77.4 Lymph % (Auto) 12.1 L [place] % (Auto) 8.4 Eos % (Auto) 1.0 Baso % (Auto) 0.5 Lymph # (Auto) 1.78 [place] # (Auto) 1.23 H Eos # (Auto) 0.14 Baso # (Auto) 0.08 Immature Gran # 0.09 H Absolute Neutrophils 11.41 H POC VBG pH POC VBG pCO2 at Temp POC VBG pO2 POC VBG HCO3 POC VBG Total CO2 POC Venous O2 Sat POC VBG Base Excess VBG Lactic Acid POC Sodium 136 POC Potassium 4.4 POC Chloride 103 POC Total CO2 27.0 POC BUN 35 H POC Creatinine 1.0 POC Glucose 314 H POC WB Ioniz Calcium 1.17 Total Bilirubin 0.4 Direct Bilirubin < 0.2 AST 15 ALT 28 Alkaline Phosphatase 147 H Troponin T NT-Pro-B Natriuret Pep 5246.0 H Total Protein 7.4 Albumin 4.0 Globulin 3.4 Procalcitonin Urine Color Urine Appearance Urine pH Ur Specific [place] Urine Protein Urine Glucose (UA) Urine Ketones Urine Occult Blood Urine Nitrate Urine Bilirubin Urine Urobilinogen Ur Leukocyte Esterase Urine RBC Urine WBC Ur Squamous Epith Cells Urine Bacteria Hyaline Casts Ur Culture Indicated? POC Troponin I Pending 07/19/22 11:37 WBC RBC Hgb Hct POC Hct MCV MCH MCHC RDW Plt Count MPV Immature Gran % (Auto) Neut % (Auto) Lymph % (Auto) [place] % (Auto) Eos % (Auto) Baso % (Auto) Lymph # (Auto) [place] # (Auto) Eos # (Auto) Baso # (Auto) Immature Gran # Absolute Neutrophils POC VBG pH POC VBG pCO2 at Temp POC VBG pO2 POC VBG HCO3 POC VBG Total CO2 POC Venous O2 Sat POC VBG Base Excess VBG Lactic Acid POC Sodium POC Potassium POC Chloride POC Total CO2 POC BUN POC Creatinine POC Glucose POC WB Ioniz Calcium Total Bilirubin Direct Bilirubin AST ALT Alkaline Phosphatase Troponin T NT-Pro-B Natriuret Pep Total Protein Albumin Globulin Procalcitonin Urine Color Urine Appearance Urine pH Ur Specific [place] Urine Protein Urine Glucose (UA) Urine Ketones Urine Occult Blood Urine Nitrate Urine Bilirubin Urine Urobilinogen Ur Leukocyte Esterase Urine RBC Urine WBC Ur Squamous Epith Cells Urine Bacteria Hyaline Casts Ur Culture Indicated? POC Troponin I 0.33 H A/P Narrative A/P Narrative: A: *A. fib w/RVR: -on Dilt/Apixaban at home *PNA: *Sepsis: 2/2 above *UTI( ): *Encephalopathy: Likely 2/2 above with probable underlying mild dementia or MCI *Demand ischemia: Patient denies chest pain *PVD: follows with Dr. Farrell *Tobacco abuse: *DM w/neuropathy: *COPD(not on Home O2): *HTN/HLD: *Depression/anxiety: *GERD: *Obesity: BMI 32, diet/exercise lifestyle changes P: -dilt gtt, wean to oral as able -check mag/tsh -IV abx, pending BC/SC/UC -f/u PCT -f/u cxr -hold home aldactone/torsemide today -basal and SSI, check a1c -cont statin -f/u trop -Smoking cessation counseling > 3 minutes -PT/OT -CM for placement -f/u with cardiology -ppx: Apixaban/home PPI Time Spent With Patient Time: Total time spent is greater than 50% in coordination of care (as documented) at patient's floor/unit and/or counseling patient: Critical Care Time: Yes Total Critical Care Time: 70
[2022-07-19] MEDS ORDERED: ONDANSETRON 4 MG/2 ML VIAL IV PRN (21:14)
[2022-07-19] MEDS ORDERED: DEXTROSE 50% 50 ML VIAL IV PRN (21:14)
[2022-07-19] MEDS ORDERED: METOPROLOL TARTRATE 5 MG/5 ML VIAL IV PRN (21:14)
[2022-07-19] MEDS ORDERED: SENNOSIDES 1 TABLET PO PRN (21:14)
[2022-07-19] MEDS ORDERED: IPRATROPIUM/ALBUTEROL 3 ML AMPUL.NEB NEB PRN (21:14)
[2022-07-19] MEDS ORDERED: POLYETHYLENE GLYCOL 3350 17 GM PACKET PO PRN (21:14)
[2022-07-19] MEDS ORDERED: POTASSIUM CHLORIDE 40 MEQ in DEXTROSE 5% IN WATER 500 ML IV PRN (21:14)
[2022-07-19] MEDS ORDERED: DEXTROSE 31 GM ORAL.SUSP PO PRN (21:14)
[2022-07-19] MEDS ORDERED: cefTRIAXone 1 GM in DEXTROSE 5% IN WATER 50 ML IV SCH (21:14)
[2022-07-19] MEDS ORDERED: POTASSIUM CHLORIDE 20 MEQ TABLET PO PRN ×2 (21:14)
[2022-07-19] MEDS: DOCUSATE SODIUM 100 MG CAPSULE PO SCH (21:50)
[2022-07-19] MEDS: INSULIN LISPRO 1 UNIT/0.01 ML UNIT SQ SCH (21:50)
[2022-07-19] MEDS: APIXABAN 5 MG TABLET PO SCH (21:51)
[2022-07-19] MEDS: 0.9 % SODIUM CHLORIDE 10 ML SYRINGE IV SCH (21:52)
[2022-07-19] MEDS: AZITHROMYCIN 500 MG in DEXTROSE 5% IN WATER 250 ML IV SCH (22:34)
[2022-07-19] MEDS: HYDROcodone/APAP 5/325MG TABLET PO PRN (22:51)
[2022-07-19 23:38] LABS: Estimated Average Glucose(eAG) 246 mg/dL; Hemoglobin A1C 10.2 % Hgb (4.0-6.0)
[2022-07-20] MEDS: 0.9 % SODIUM CHLORIDE 1,000 ML IV SCH ×2 (00:25→00:26)
[2022-07-20] MEDS: DILTIAZEM 125 MG in DEXTROSE 5% IN WATER 100 ML IV SCH ×3 (05:36→14:42)
[2022-07-20] MEDS: 0.9 % SODIUM CHLORIDE 10 ML SYRINGE IV SCH ×3 (05:36→20:38)
[2022-07-20 06:42] LABS: Basophils # (Auto) 0.08 K/mcL (0.00-0.30); Basophils % (Auto) 0.7 % (0.0-2.0); Eosinophils # (Auto) 0.24 K/mcL (0.00-0.70); Eosinophils % (Auto) 2.2 % (0.0-7.0); Hematocrit 39.3 % (34.1-44.9); Hemoglobin 12.1 g/dL (11.2-15.7); Lymphocytes # (Auto) 1.17 K/mcL (1.50-4.80); Mean Corpuscular HGB Conc 30.8 g/dL (31.0-36.0); Mean Platelet Volume 10.2 fL (8.8-12.5); Monocytes % (Auto) 6.6 % (1.0-12.0); Platelet Count 317 K/mcL (140-440); RBC 4.18 M/mcL (3.59-5.38); Red Cell Distribution Width 16.3 % (11.5-14.5); WBC 10.7 K/mcL (4.5-11.0)
[2022-07-20] MEDS: HYDROcodone/APAP 5/325MG TABLET PO PRN ×3 (06:44→21:05)
[2022-07-20 07:06] LABS: ALT/SGPT 29 U/L (<40); AST/SGOT 26 U/L (<32); Albumin 3.3 gm/dL (3.2-5.2); Albumin/Globulin Ratio 1.2 (1.0-2.3); Alkaline Phosphatase 124 U/L (39-117); Bilirubin,Direct < 0.2 mg/dL (0-0.3); Bilirubin,Total 0.4 mg/dL (0.1-1.0); Blood Urea Nitrogen 24 mg/dL (8-23); Calcium 8.2 mg/dL (8.6-10.4); Carbon Dioxide 21 mmol/L (22-30); Chloride 103 mmol/L (96-108); Globulin 2.7 gm/dL (2.2-3.7); Glomerular Filtration Rate 80; Glucose 80 mg/dL (70-105); Lactate Dehydrogenase 278 U/L (135-225); Phosphorous 2.4 mg/dL (2.5-4.5); Triglycerides 104 mg/dL (<150); Uric Acid 4.1 mg/dL (2.5-8.0)
--- NOTE | 2022-07-20 07:24 | EKG ---
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
--- NOTE | 2022-07-20 07:27 | EKG ---
[facility] Test Date: 2022-07-19 Pat Name: Candice Khan Department: ED Room: Gender: Female Estate Planning Counselor: AYESHA : 1940 Requested By: Tanya Baer Order Number: [id number] Reading MD: Barrington Muse Measurements Intervals [place] Rate: 97 P: [place]: QRS: 244 QRSD: 129 T: 115 QT: 393 QTc: 500 Interpretive Statements Atrial fibrillation Nonspecific IVCD with LAD Electronically Signed On 07-20-2022 7:26:51 PST by Barrington Muse /[email or web address]/[id number]
[2022-07-20] MEDS: INSULIN LISPRO 1 UNIT/0.01 ML UNIT SQ SCH ×4 (07:32→20:36)
--- NOTE | 2022-07-20 08:02 | Internal Med Progress Note ---
SUBJECTIVE Subjective Patient information: Note initiated : 07/20/22 at 7:58 am Service Date, if different from initiated Date: [] Patient: Candice Khan a 81 y/o F admitted on 07/19/22 for Fall 1 wk ago, weakness. Chief Complaint: [] Interval history: History of present illness: Ms. Khan is a 81 year old F Who presents the ED because she was not acting herself. Per the notes neighbor found her in her chair stating she was not acting herself. Patient did hit her head about a week ago after falling from the toilet. States that she was sitting too long and her legs became numb and when she got up she fell hitting her head. In the ED her heart rate was 130-140. Head CT showed moderate atrophy and chronic ischemic changes throughout. Patient's only complaint is that she does have a headache and some pain from the lump where she hit her head. She was confused with dates when she arrived. When I saw her she said it was 1972 but knew she was at [facility]. She knew her name and birthdate. She says she believes it was her neighbor that called. Patient denies any fever chills nausea or vomiting. She denies any chest pain or shortness of breath. She does have a cough which is new. She states she has phlegm but she is not able to cough it out. She had a mild leukocytosis of 14 7. Blood glucose was elevated 314. In the ED she was worked up and evaluated found to have a right lower lobe infiltrate on chest x-ray and treated for pneumonia. She had A. fib RVR possibly flutter. Her initial rate was 147. She also had a troponin of 0.33 and her follow-up with 0.42. She denies any chest pain and EKG nonspecific. She was put on a diltiazem drip which improved her heart rate. She was also found to have a UTI in the ED was started on treatment for that. Patient says she has not done well since her heart medication was changed by Dr. Arellano. She told her pharmacy that but they said it was the same medication. 07/20 Patient on BiPAP overnight switched to nasal cannula. Late morning she appeared to have some respiratory distress ABG shows respiratory acidosis. Placed back on BiPAP. Does have edema and does have rales as well so we will give IV Lasix and monitor urine output closely. She is on diltiazem drip and restarting p.o. diltiazem and will try to drip and transition off the IV diltiazem. She does have a cough. She denies shortness of breath currently but definitely looks a bit labored. She failed the cognitive eval and likely has underlying dementia. Review of Systems: Occasional headaches. Denies fever/chills/nausea/vomiting/chest or abdominal pain/diarrhea. Otherwise see above. Constitutional Vitals: Vital Signs Temp Pulse Resp BP Pulse Ox O2 Del Method O2 Flow Rate 97.5 F 110 H 21 148/102 94 2 07/20/22 04:01 07/20/22 06:01 07/20/22 06:01 07/20/22 06:01 07/20/22 06:01 07/20/22 06:01 07/20/22 06:01 Period Temp Pulse Resp BP Sys/Purvis Pulse Ox O2 Del Method O2 Flow Rate Last 24 Hr 97.5 F-98.2 F 36-147 16-31 110-152/53-123 83-99 Nasal Cannula- Room Air 2-4 Intake and Output 07/19/22 07/20/22 07/20/22 19:59 03:59 11:59 Intake Total 1062 384 298 Output Total 3 2 Balance 1062 381 296 Weight 83.007 kg Intake & Output: Intake & Output 07/19/22 07/20/22 07/20/22 19:59 03:59 11:59 Intake Total 1062 384 298 Output Total 3 2 Balance 1062 381 296 Weight 83.007 kg Intake: IV 1062 284 48 Sodium Chloride 0.9% 1,000 ml @ 1000 500 mls/hr IV .Q2H ELAINE Rx#: [id number] Zithromax 500 mg In Dextrose 5% 250 in Water 250 ml @ 250 mls/hr IV Q24H ELAINE Rx#:[id number] Cardizem 125 mg In Dextrose 5% 12 34 48 in Water 100 ml @ 5 MG/HR 5 mls /hr IV Q12H ELAINE Rx#:[id number] Rocephin 2 gm In Dextrose 5% in 50 Water 50 ml @ 100 mls/hr IV ONCE ONE Rx#:[id number] Oral 100 250 Output: # of times incontinent of urine 3 2 Other: Percent of Meal Consumed HS snack Feeding Ability Assist with Tray Set Up Nourishment/Supplement name egg salad/milk Urine Appearance Clear Urine Color Yellow # Bowel Movements 0 Exam: General: Alert, Awake, mild respiratory distress, obese Eyes/N/T: EOMI, Head/Neck: neck supple, CV: Irregular, No murmurs, Pulm: rhonchi/rales b/l, diminished BS b/l Abd: soft, nontender, +BS x4 Ext: no clubbing/cyanosis, 3+ b/l LE edema Neuro: Alert, no focal deficits, moves all extremities, Skin: warm/dry OBJ DATA Labs CBC & Chem 7: 07/20/22 05:43 07/20/22 05:43 Labs: Abnormal Lab Results 07/20/22 07/20/22 07/20/22 05:43 05:43 05:43 WBC MCHC 30.8 L RDW 16.3 H Immature Gran % (Auto) Neut % (Auto) 79.0 H Lymph % (Auto) 11.0 L Lymph # (Auto) 1.17 L [place] # (Auto) Immature Gran # Absolute Neutrophils 8.43 H POC VBG pH POC VBG pCO2 at Temp POC VBG pO2 POC VBG HCO3 POC VBG Total CO2 POC Venous O2 Sat POC VBG Base Excess Carbon Dioxide 21 L POC BUN BUN 24 H POC Glucose Hemoglobin A1c Calcium 8.2 L Phosphorus 2.4 L GGT 90 H Alkaline Phosphatase 124 H Lactate Dehydrogenase 278 H Troponin T C-Reactive Protein NT-Pro-B Natriuret Pep Procalcitonin 0.12 H Urine Appearance Urine Protein Urine Glucose (UA) Urine Ketones Urine WBC Urine Bacteria Hyaline Casts POC Troponin I 07/19/22 07/19/22 07/19/22 19:30 18:20 15:09 WBC MCHC RDW Immature Gran % (Auto) Neut % (Auto) Lymph % (Auto) Lymph # (Auto) [place] # (Auto) Immature Gran # Absolute Neutrophils POC VBG pH POC VBG pCO2 at Temp POC VBG pO2 24 L POC VBG HCO3 POC VBG Total CO2 POC Venous O2 Sat 39.0 L POC VBG Base Excess Carbon Dioxide POC BUN BUN POC Glucose Hemoglobin A1c 10.2 H Calcium Phosphorus GGT Alkaline Phosphatase Lactate Dehydrogenase Troponin T C-Reactive Protein 1.00 H NT-Pro-B Natriuret Pep Procalcitonin Urine Appearance Urine Protein Urine Glucose (UA) Urine Ketones Urine WBC Urine Bacteria Hyaline Casts POC Troponin I 0.42 H 07/19/22 07/19/22 07/19/22 13:36 12:50 11:56 WBC MCHC RDW Immature Gran % (Auto) Neut % (Auto) Lymph % (Auto) Lymph # (Auto) [place] # (Auto) Immature Gran # Absolute Neutrophils POC VBG pH 7.62 H* POC VBG pCO2 at Temp 16.6 L* POC VBG pO2 87 H POC VBG HCO3 17.1 L POC VBG Total CO2 18.0 L POC Venous O2 Sat 98.0 H POC VBG Base Excess -4.0 L Carbon Dioxide POC BUN BUN POC Glucose Hemoglobin A1c Calcium Phosphorus GGT Alkaline Phosphatase Lactate Dehydrogenase Troponin T 0.12 H* C-Reactive Protein NT-Pro-B Natriuret Pep Procalcitonin Urine Appearance Cloudy A Urine Protein Trace A Urine Glucose (UA) 500 A Urine Ketones 15 A Urine WBC 13 H Urine Bacteria Many A Hyaline Casts 33 H POC Troponin I 07/19/22 07/19/22 07/19/22 11:45 11:45 11:45 WBC 14.7 H MCHC RDW 16.2 H Immature Gran % (Auto) 0.6 H Neut % (Auto) Lymph % (Auto) 12.1 L Lymph # (Auto) [place] # (Auto) 1.23 H Immature Gran # 0.09 H Absolute Neutrophils 11.41 H POC VBG pH POC VBG pCO2 at Temp POC VBG pO2 POC VBG HCO3 POC VBG Total CO2 POC Venous O2 Sat POC VBG Base Excess Carbon Dioxide POC BUN BUN POC Glucose Hemoglobin A1c Calcium Phosphorus GGT Alkaline Phosphatase 147 H Lactate Dehydrogenase Troponin T C-Reactive Protein NT-Pro-B Natriuret Pep 5246.0 H Procalcitonin 0.20 H Urine Appearance Urine Protein Urine Glucose (UA) Urine Ketones Urine WBC Urine Bacteria Hyaline Casts POC Troponin I 07/19/22 07/19/22 11:38 11:37 WBC MCHC RDW Immature Gran % (Auto) Neut % (Auto) Lymph % (Auto) Lymph # (Auto) [place] # (Auto) Immature Gran # Absolute Neutrophils POC VBG pH POC VBG pCO2 at Temp POC VBG pO2 POC VBG HCO3 POC VBG Total CO2 POC Venous O2 Sat POC VBG Base Excess Carbon Dioxide POC BUN 35 H BUN POC Glucose 314 H Hemoglobin A1c Calcium Phosphorus GGT Alkaline Phosphatase Lactate Dehydrogenase Troponin T C-Reactive Protein NT-Pro-B Natriuret Pep Procalcitonin Urine Appearance Urine Protein Urine Glucose (UA) Urine Ketones Urine WBC Urine Bacteria Hyaline Casts POC Troponin I 0.33 H Meds: Medications Acetaminophen (Acetaminophen 325 Mg Tablet) 650 mg PO Q6HP PRN; Protocol PRN Reason: Per Pain Protocol/Fever > 101 Hydrocodone Bitart/Acetaminophen (Hydrocodone/Apap 5/325mg Tablet) 1 tab PO Q4 HP PRN PRN Reason: PAIN LEVEL 3-6 Last Admin: 07/20/22 06:44 Dose: 1 tab Albuterol/Ipratropium (Ipratropium/Albuterol 3 Ml Ampul.Neb) 3 ml NEB Q4HP PRN PRN Reason: Shortness Of Breath Apixaban (Apixaban 5 Mg Tablet) 2.5 mg PO BID [facility] Last Admin: 07/19/22 21:51 Dose: 2.5 mg Ceftriaxone Sodium (Ceftriaxone 1 Gm Vial) 1 gm IV Q24H [facility] Dextrose (Dextrose 50% 50 Ml Vial) 0 ml IV UD PRN PRN Reason: Per Sliding Scale Diagnostic Test (Pha) (Accu-Chek 1 Each Strip) 1 each FS ACHS [facility] Last Admin: 07/20/22 07:32 Dose: 1 each Docusate Sodium (Docusate Sodium 100 Mg Capsule) 100 mg PO BID [facility] Last Admin: 07/19/22 21:50 Dose: 100 mg Glucose (Dextrose 31 Gm Oral.Susp) 15 gm PO PRN PRN PRN Reason: Hypoglycemia Diltiazem HCl 125 mg/ Dextrose 125 mls @ 5 mls/hr IV Q12H [facility]; Protocol Last Titration: 07/20/22 06:40 Dose: 10 mg/hr, 10 mls/hr Potassium Chloride 40 meq/ (Dextrose) 520 mls @ 130 mls/hr IV UD PRN PRN Reason: Potassium < 3 Magnesium Sulfate (Magnesium Sulfate) 2 gm in 50 mls @ 50 mls/hr IV UD PRN PRN Reason: Magnesium </= 1.6 Azithromycin 500 mg/ Dextrose 250 mls @ 250 mls/hr IV Q24H [facility]; Protocol Stop: 07/21/22 22:13 Last Infusion: 07/19/22 23:45 Dose: Infused Insulin Human Lispro (Insulin Lispro 1 Unit/0.01 Ml Unit) 0 unit SQ [facility]; Protocol Last Admin: 07/20/22 07:32 Dose: Not Given Metoprolol Tartrate (Metoprolol Tartrate 5 Mg/5 Ml Vial) 5 mg IV Q2HP PRN PRN Reason: Tachyarrhythmias HR>110 Ondansetron HCl (Ondansetron 4 Mg/2 Ml Vial) 4 mg IV Q4HP PRN PRN Reason: Nausea And Vomiting Polyethylene Glycol (Polyethylene Glycol 3350 17 Gm Packet) 17 gm PO DAILYP PRN PRN Reason: Constipation Potassium Chloride (Potassium Chloride 20 Meq Tablet) 40 meq PO UD PRN PRN Reason: Potssium is 3-3.5 Potassium Chloride (Potassium Chloride 20 Meq Tablet) 40 meq PO UD PRN PRN Reason: Potassium < 3 Senna (Sennosides 1 Tablet) 2 tab PO DAILYP PRN PRN Reason: Constipation Sodium Chloride (0.9 % Sodium Chloride 10 Ml Syringe) 10 ml IV Q8 [facility] Last Admin: 07/20/22 05:36 Dose: 10 ml A/P Narrative A/P Narrative: A: *A. fib w/RVR: -on Dilt/Apixaban at home *Acute hypoxic/hypercapnic respiratory failure: 2/2 CHF +/- PNA -start bipap *Acute on likely chronic CHF: *suspected PNA: *Sepsis: 2/2 above -tachycardia/tachypnea/leukocytosis *UTI: *Encephalopathy: Likely 2/2 above with likely underlying dementia -failed OT cognitive eval *Demand ischemia: Patient denies chest pain *PVD: follows with Dr. 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, poorly controlled *COPD(not on Home O2): *HTN/HLD: *Depression/anxiety: *GERD: *Obesity: BMI 32, diet/exercise lifestyle changes *Hypophosphatemia: P: -dilt gtt, wean to oral as able -IV diuresis and aldactone -echo -IV abx, pending BC/SC/UC -f/u PCT -f/u cxr -on Bipap, wean O2 as able, IS/Acapella -Monitor and replace electrolytes and trend chemistry/CBC -basal and SSI, -cont statin -f/u trop -Smoking cessation counseling -PT/OT -CM for placement -f/u with cardiology -ppx: Apixaban/home PPI Time Spent With Patient Time: Total time spent is greater than 50% in coordination of care (as documented) at patient's floor/unit and/or counseling patient: Critical Care Time: Yes Total Critical Care Time: 50 QUALITY VTE Deep Vein Thrombosis/Pulmonary Embolism Present on Admission: No
[2022-07-20] MEDS ORDERED: HYDROcodone/APAP (PP) 7.5/325MG TABLET (#4) PO PRN (08:19)
--- NOTE | 2022-07-20 09:11 | XRay Report ---
CLINICAL INFORMATION: Dyspnea COMPARISON: 07/19/2022 TECHNIQUE: Portable FINDINGS: Moderate cardiomegaly has increased. Mediastinum is normal. Pulmonary vessels are now moderately distended with moderate interstitial edema throughout both lungs. Moderate infiltrate has worsened in the right base with increasing consolidation. Smaller vague patchy infiltrate in the left base is also progressed. Small bilateral pleural effusions noted. IMPRESSION: Moderate CHF Moderate right basilar infiltrate increasing in size and now consolidated. Smaller patchy left basilar infiltrate also worsening. Consider aspiration Interpreted and Authenticated by: Noe Hall 07/20/22
[2022-07-20] MEDS: ATORVASTATIN 40 MG TABLET PO SCH (09:12)
[2022-07-20] MEDS: GABAPENTIN 300 MG CAPSULE PO SCH ×3 (09:12→20:36)
[2022-07-20] MEDS: DOCUSATE SODIUM 100 MG CAPSULE PO SCH ×2 (09:12→20:37)
[2022-07-20] MEDS: DILTIAZEM 120 MG CAP.XL.24H PO SCH (09:12)
[2022-07-20] MEDS: APIXABAN 5 MG TABLET PO SCH ×2 (09:12→20:36)
[2022-07-20] MEDS: ESCITALOPRAM 10 MG TABLET PO SCH (09:12)
[2022-07-20] MEDS: cefTRIAXone 1 GM VIAL IV SCH (09:13)
[2022-07-20] MEDS: CARBIDOPA/LEVODOPA 10/100 TABLET PO SCH ×2 (09:13→20:36)
[2022-07-20] MEDS: FORMOTEROL 4.8 MCG INH SCH ×2 (09:15→20:37)
[2022-07-20] MEDS: PANTOPRAZOLE 40 MG TABLET PO SCH (09:15)
[2022-07-20] MEDS: [UNRECOGNIZED DRUG - OTHER] INH SCH ×2 (09:15→20:37)
[2022-07-20] MEDS: BUDESONIDE 160 MCG INH SCH ×2 (09:15→20:37)
[2022-07-20] MEDS: INSULIN GLARGINE, HUMAN 1 UNIT/0.01 ML SQ SCH (09:15)
[2022-07-20] MEDS ORDERED: FUROSEMIDE 100 MG/10 ML VIAL IV ONE (11:07)
[2022-07-20] MEDS ORDERED: TORSEMIDE 10 MG TABLET PO SCH (12:00)
[2022-07-20] MEDS: AZITHROMYCIN 500 MG in DEXTROSE 5% IN WATER 250 ML IV SCH (12:39)
[2022-07-20] MEDS: SPIRONOLACTONE 25 MG TABLET PO SCH (12:40)
[2022-07-20] MEDS ORDERED: FUROSEMIDE 20 MG/2 ML VIAL IV ONE (18:00)
[2022-07-20] MEDS ORDERED: diphenhydrAMINE 25 MG CAPSULE PO PRN (21:00)
[2022-07-21] MEDS: HYDROcodone/APAP 5/325MG TABLET PO PRN ×2 (00:40→19:34)
[2022-07-21] MEDS: DILTIAZEM 125 MG in DEXTROSE 5% IN WATER 100 ML IV SCH (06:12)
[2022-07-21] MEDS: 0.9 % SODIUM CHLORIDE 10 ML SYRINGE IV SCH ×3 (06:13→22:11)
[2022-07-21] MEDS ORDERED: DILTIAZEM 125 MG in DEXTROSE 5% IN WATER 100 ML IV PRN (07:15)
--- NOTE | 2022-07-21 07:56 | Internal Med Progress Note ---
SUBJECTIVE Subjective Patient information: Note initiated : 07/21/22 at 7:50 am Service Date, if different from initiated Date: [] Patient: Candice Khan a 81 y/o F admitted on 07/19/22 for Fall 1 wk ago, weakness. Chief Complaint: [] Interval history: History of present illness: Ms. Khan is a 81 year old F Who presents the ED because she was not acting herself. Per the notes neighbor found her in her chair stating she was not acting herself. Patient did hit her head about a week ago after falling from the toilet. States that she was sitting too long and her legs became numb and when she got up she fell hitting her head. In the ED her heart rate was 130-140. Head CT showed moderate atrophy and chronic ischemic changes throughout. Patient's only complaint is that she does have a headache and some pain from the lump where she hit her head. She was confused with dates when she arrived. When I saw her she said it was 1972 but knew she was at [facility]. She knew her name and birthdate. She says she believes it was her neighbor that called. Patient denies any fever chills nausea or vomiting. She denies any chest pain or shortness of breath. She does have a cough which is new. She states she has phlegm but she is not able to cough it out. She had a mild leukocytosis of 14 7. Blood glucose was elevated 314. In the ED she was worked up and evaluated found to have a right lower lobe infiltrate on chest x-ray and treated for pneumonia. She had A. fib RVR possibly flutter. Her initial rate was 147. She also had a troponin of 0.33 and her follow-up with 0.42. She denies any chest pain and EKG nonspecific. She was put on a diltiazem drip which improved her heart rate. She was also found to have a UTI in the ED was started on treatment for that. Patient says she has not done well since her heart medication was changed by Dr. Arellano. She told her pharmacy that but they said it was the same medication. 07/20 Patient on BiPAP overnight switched to nasal cannula. Late morning she appeared to have some respiratory distress ABG shows respiratory acidosis. Placed back on BiPAP. Does have edema and does have rales as well so we will give IV Lasix and monitor urine output closely. She is on diltiazem drip and restarting p.o. diltiazem and will try to drip and transition off the IV diltiazem. She does have a cough. She denies shortness of breath currently but definitely looks a bit labored. She failed the cognitive eval and likely has underlying dementia. 07/21 Patient seen today feeling a bit better today. Mentation but more clear. She is on nasal cannula 1 L currently with good sats. Was on BiPAP overnight. Discussed with patient potential need for short stay to rehab facility but she refused but said she would consider over the next 24 hours. Hypokalemic today on laboratory. Hemoglobin A1c 10.2. Patient was diuresed yesterday. proBNP improved today. She did have some nausea at 1 point. Present cough but improving as well as shortness of breath. Review of Systems: Occasional headaches. Denies fever/chills//vomiting/chest or abdominal pain/diarrhea. Otherwise see above. Constitutional Vitals: Vital Signs Temp Pulse Resp BP Pulse Ox O2 Del Method O2 Flow Rate 98.3 F 105 H 13 128/74 94 Nasal Cannula 1 07/21/22 04:01 07/21/22 07:01 07/21/22 07:01 07/21/22 07:01 07/21/22 07:01 07/21/22 07:01 07/21/22 07:01 Period Temp Pulse Resp BP Sys/Purvis Pulse Ox O2 Del Method O2 Flow Rate Last 24 Hr 97.0 F-98.3 F 84-124 13-32 110-151/56-96 91-100 BiPAP-Nasal Cannula 1-40 Intake and Output 07/20/22 07/21/22 07/21/22 19:59 03:59 11:59 Intake Total 925 Output Total 1801 1035 70 Balance -876 1035 -70 Weight 83.007 kg 80.014 kg Intake & Output: Intake & Output 07/20/22 07/21/22 07/21/22 19:59 03:59 11:59 Intake Total 925 Output Total 1801 1035 70 Balance -876 -1035 -70 Weight 83.007 kg 80.014 kg Intake: IV 275 Zithromax 500 mg In Dextrose 5% 250 in Water 250 ml @ 250 mls/hr IV Q24H [facility] Rx#:[id number] Cardizem 125 mg In Dextrose 5% 25 in Water 100 ml @ 5 MG/HR 5 mls /hr IV Q12H [facility] Rx#:[id number] Oral 650 Output: Urine Catheter Amount 1800 1035 70 # of times incontinent of urine 1 Other: Meal Dinner Percent of Meal Consumed 25% Urine Appearance Cloudy Cloudy Cloudy Sediment Fem Cloudy Cloudy Sediment Sediment Urine Color Pale Light Monica Light Monica Fem Yellow Light Monica Urine Odor Normal Exam: General: Alert, Awake, mild respiratory distress, obese Eyes/N/T: EOMI, Head/Neck: neck supple, CV: Irregular, No murmurs, Pulm: rhonchi/rales b/l much better, diminished BS b/l better, mild wheezing b/l Abd: soft, nontender, +BS x4 Ext: no clubbing/cyanosis, 1+ b/l LE edema Neuro: Alert, no focal deficits, moves all extremities, Skin: warm/dry OBJ DATA Labs 07/20/22 05:43 07/20/22 05:43 Labs: Abnormal Lab Results 07/21/22 07/20/22 07/20/22 05:11 13:23 11:33 WBC MCHC RDW Immature Gran % (Auto) Neut % (Auto) Lymph % (Auto) Lymph # (Auto) [place] # (Auto) Immature Gran # Absolute Neutrophils POC pH 7.26 L POC pCO2 53.3 H* POC pO2 71 L POC ABG Base Excess -3.0 L POC VBG pH POC VBG pCO2 at Temp POC VBG pO2 POC VBG HCO3 POC VBG Total CO2 POC Venous O2 Sat POC VBG Base Excess Hgb O2 Saturation 91.0 L Carbon Dioxide POC BUN BUN POC Glucose Hemoglobin A1c Calcium Phosphorus GGT Alkaline Phosphatase Lactate Dehydrogenase Troponin T C-Reactive Protein NT-Pro-B Natriuret Pep 2918.0 H Procalcitonin Urine Appearance Urine Protein Urine Glucose (UA) Urine Ketones Urine WBC Urine Bacteria Hyaline Casts POC Troponin I 0.32 H 07/20/22 07/20/22 07/20/22 05:43 05:43 05:43 WBC MCHC 30.8 L RDW 16.3 H Immature Gran % (Auto) Neut % (Auto) 79.0 H Lymph % (Auto) 11.0 L Lymph # (Auto) 1.17 L [place] # (Auto) Immature Gran # Absolute Neutrophils 8.43 H POC pH POC pCO2 POC pO2 POC ABG Base Excess POC VBG pH POC VBG pCO2 at Temp POC VBG pO2 POC VBG HCO3 POC VBG Total CO2 POC Venous O2 Sat POC VBG Base Excess Hgb O2 Saturation Carbon Dioxide 21 L POC BUN BUN 24 H POC Glucose Hemoglobin A1c Calcium 8.2 L Phosphorus 2.4 L GGT 90 H Alkaline Phosphatase 124 H Lactate Dehydrogenase 278 H Troponin T C-Reactive Protein NT-Pro-B Natriuret Pep Procalcitonin 0.12 H Urine Appearance Urine Protein Urine Glucose (UA) Urine Ketones Urine WBC Urine Bacteria Hyaline Casts POC Troponin I 07/19/22 07/19/22 07/19/22 19:30 18:20 15:09 WBC MCHC RDW Immature Gran % (Auto) Neut % (Auto) Lymph % (Auto) Lymph # (Auto) [place] # (Auto) Immature Gran # Absolute Neutrophils POC pH POC pCO2 POC pO2 POC ABG Base Excess POC VBG pH POC VBG pCO2 at Temp POC VBG pO2 24 L POC VBG HCO3 POC VBG Total CO2 POC Venous O2 Sat 39.0 L POC VBG Base Excess Hgb O2 Saturation Carbon Dioxide POC BUN BUN POC Glucose Hemoglobin A1c 10.2 H Calcium Phosphorus GGT Alkaline Phosphatase Lactate Dehydrogenase Troponin T C-Reactive Protein 1.00 H NT-Pro-B Natriuret Pep Procalcitonin Urine Appearance Urine Protein Urine Glucose (UA) Urine Ketones Urine WBC Urine Bacteria Hyaline Casts POC Troponin I 0.42 H 07/19/22 07/19/22 07/19/22 13:36 12:50 11:56 WBC MCHC RDW Immature Gran % (Auto) Neut % (Auto) Lymph % (Auto) Lymph # (Auto) [place] # (Auto) Immature Gran # Absolute Neutrophils POC pH POC pCO2 POC pO2 POC ABG Base Excess POC VBG pH 7.62 H* POC VBG pCO2 at Temp 16.6 L* POC VBG pO2 87 H POC VBG HCO3 17.1 L POC VBG Total CO2 18.0 L POC Venous O2 Sat 98.0 H POC VBG Base Excess -4.0 L Hgb O2 Saturation Carbon Dioxide POC BUN BUN POC Glucose Hemoglobin A1c Calcium Phosphorus GGT Alkaline Phosphatase Lactate Dehydrogenase Troponin T 0.12 H* C-Reactive Protein NT-Pro-B Natriuret Pep Procalcitonin Urine Appearance Cloudy A Urine Protein Trace A Urine Glucose (UA) 500 A Urine Ketones 15 A Urine WBC 13 H Urine Bacteria Many A Hyaline Casts 33 H POC Troponin I 07/19/22 07/19/22 07/19/22 11:45 11:45 11:45 WBC 14.7 H MCHC RDW 16.2 H Immature Gran % (Auto) 0.6 H Neut % (Auto) Lymph % (Auto) 12.1 L Lymph # (Auto) [place] # (Auto) 1.23 H Immature Gran # 0.09 H Absolute Neutrophils 11.41 H POC pH POC pCO2 POC pO2 POC ABG Base Excess POC VBG pH POC VBG pCO2 at Temp POC VBG pO2 POC VBG HCO3 POC VBG Total CO2 POC Venous O2 Sat POC VBG Base Excess Hgb O2 Saturation Carbon Dioxide POC BUN BUN POC Glucose Hemoglobin A1c Calcium Phosphorus GGT Alkaline Phosphatase 147 H Lactate Dehydrogenase Troponin T C-Reactive Protein NT-Pro-B Natriuret Pep 5246.0 H Procalcitonin 0.20 H Urine Appearance Urine Protein Urine Glucose (UA) Urine Ketones Urine WBC Urine Bacteria Hyaline Casts POC Troponin I 07/19/22 07/19/22 11:38 11:37 WBC MCHC RDW Immature Gran % (Auto) Neut % (Auto) Lymph % (Auto) Lymph # (Auto) [place] # (Auto) Immature Gran # Absolute Neutrophils POC pH POC pCO2 POC pO2 POC ABG Base Excess POC VBG pH POC VBG pCO2 at Temp POC VBG pO2 POC VBG HCO3 POC VBG Total CO2 POC Venous O2 Sat POC VBG Base Excess Hgb O2 Saturation Carbon Dioxide POC BUN 35 H BUN POC Glucose 314 H Hemoglobin A1c Calcium Phosphorus GGT Alkaline Phosphatase Lactate Dehydrogenase Troponin T C-Reactive Protein NT-Pro-B Natriuret Pep Procalcitonin Urine Appearance Urine Protein Urine Glucose (UA) Urine Ketones Urine WBC Urine Bacteria Hyaline Casts POC Troponin I 0.33 H Meds: Medications Acetaminophen (Acetaminophen 325 Mg Tablet) 650 mg PO Q6HP PRN; Protocol PRN Reason: Per Pain Protocol/Fever > 101 Hydrocodone Bitart/Acetaminophen (Hydrocodone/Apap 5/325mg Tablet) 1 tab PO Q4HP PRN PRN Reason: PAIN LEVEL 3-6 Last Admin: 07/21/22 00:40 Dose: 1 tab Albuterol/Ipratropium (Ipratropium/Albuterol 3 Ml Ampul.Neb) 3 ml NEB Q4HP PRN PRN Reason: Shortness Of Breath Apixaban (Apixaban 5 Mg Tablet) 2.5 mg PO BID [facility] Last Admin: 07/20/22 20:36 Dose: 2.5 mg Atorvastatin Calcium (Atorvastatin 40 Mg Tablet) 80 mg PO DAILY [facility] Last Admin: 07/20/22 09:12 Dose: 80 mg Carbidopa/Levodopa (Carbidopa/Levodopa 10/100 Tablet) 1 tab PO BID [facility] Last Admin: 07/20/22 20:36 Dose: 1 tab Ceftriaxone Sodium (Ceftriaxone 1 Gm Vial) 1 gm IV Q24H [facility] Last Admin: 07/20/22 09:13 Dose: 1 gm Dextrose (Dextrose 50% 50 Ml Vial) 0 ml IV UD PRN PRN Reason: Per Sliding Scale Diagnostic Test (Pha) (Accu-Chek 1 Each Strip) 1 each FS ACHS [facility] Last Admin: 07/20/22 20:35 Dose: 1 each Diltiazem HCl (Diltiazem 120 Mg Cap.Xl.24h) 360 mg PO DAILY [facility] Last Admin: 07/20/22 09:12 Dose: 360 mg Diphenhydramine HCl (Diphenhydramine 25 Mg Capsule) 25 mg PO HSP PRN PRN Reason: Insomnia Docusate Sodium (Docusate Sodium 100 Mg Capsule) 100 mg PO BID [facility] Last Admin: 07/20/22 20:37 Dose: 100 mg Escitalopram Oxalate (Escitalopram 10 Mg Tablet) 5 mg PO DAILY [facility] Last Admin: 07/20/22 09:12 Dose: 5 mg Gabapentin (Gabapentin 300 Mg Capsule) 600 mg PO TID [facility] Last Admin: 07/20/22 20:36 Dose: 600 mg Glucose (Dextrose 31 Gm Oral.Susp) 15 gm PO PRN PRN PRN Reason: Hypoglycemia Potassium Chloride 40 meq/ (Dextrose) 520 mls @ 130 mls/hr IV UD PRN PRN Reason: Potassium < 3 Magnesium Sulfate (Magnesium Sulfate) 2 gm in 50 mls @ 50 mls/hr IV UD PRN PRN Reason: Magnesium </= 1.6 Azithromycin 500 mg/ Dextrose 250 mls @ 250 mls/hr IV Q24H [facility]; Protocol Stop: 07/21/22 22:13 Last Infusion: 07/20/22 13:45 Dose: Infused Diltiazem HCl 125 mg/ Dextrose 125 mls @ 5 mls/hr IV Q12HP PRN; Protocol PRN Reason: Tachyarrhythmias Insulin Glargine (Insulin Glargine, Human 1 Unit/0.01 Ml) 10 unit SQ DAILY [facility] Last Admin: 07/20/22 09:15 Dose: 10 units Insulin Human Lispro (Insulin Lispro 1 Unit/0.01 Ml Unit) 0 unit SQ ACHS [facility]; Protocol Last Admin: 07/20/22 20:36 Dose: 2 units Metoprolol Tartrate (Metoprolol Tartrate 5 Mg/5 Ml Vial) 5 mg IV Q2HP PRN PRN Reason: Tachyarrhythmias HR>110 Ondansetron HCl (Ondansetron 4 Mg/2 Ml Vial) 4 mg IV Q4HP PRN PRN Reason: Nausea And Vomiting Pantoprazole Sodium (Pantoprazole 40 Mg Tablet) 40 mg PO ACB [facility] Last Admin: 07/20/22 09:15 Dose: 40 mg Budesonide 160 Mcg- Glycopyrolate 9 Mcg- Formoterol 4.8 Mcg [ Breztri A erosphere] Inhaler 2 dose INH BID [facility] Last Admin: 07/20/22 20:37 Dose: Not Given Polyethylene Glycol (Polyethylene Glycol 3350 17 Gm Packet) 17 gm PO DAILYP PRN PRN Reason: Constipation Potassium Chloride (Potassium Chloride 20 Meq Tablet) 40 meq PO UD PRN PRN Reason: Potssium is 3-3.5 Potassium Chloride (Potassium Chloride 20 Meq Tablet) 40 meq PO UD PRN PRN Reason: Potassium < 3 Senna (Sennosides 1 Tablet) 2 tab PO DAILYP PRN PRN Reason: Constipation Sodium Chloride (0.9 % Sodium Chloride 10 Ml Syringe) 10 ml IV Q8 [facility] Last Admin: 07/21/22 06:13 Dose: 10 ml Spironolactone (Spironolactone 25 Mg Tablet) 25 mg PO QDAY [facility] Last Admin: 07/20/22 12:40 Dose: 25 mg Torsemide (Torsemide 10 Mg Tablet) 20 mg PO DAILY [facility] Torsemide (Torsemide 10 Mg Tablet) 10 mg PO DAILY@1200 [facility] Last Admin: 07/20/22 11:17 Dose: Not Given A/P Narrative A/P Narrative: A: *A. fib w/RVR: improving -on Dilt/Apixaban at home *Acute hypoxic/hypercapnic respiratory failure: 2/2 CHF +/- PNA -initially on bipap and yesterday, placed on NC 1L this morning *Acute on likely chronic CHF: -descent diuresis yesterday *suspected PNA: *Sepsis: 2/2 above, improving -tachycardia/tachypnea/leukocytosis *UTI: *Encephalopathy: Likely 2/2 above with likely underlying dementia -failed OT cognitive eval *Demand ischemia: Patient denies chest pain. trops flat line *PVD: follows with Dr. 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, poorly controlled *COPD(not on Home O2): *HTN/HLD: *Depression/anxiety: *GERD: *Obesity: BMI 32, diet/exercise lifestyle changes *Hypophosphatemia/hypokalemia: P: -dilt gtt off, cont oral dilt -IV diuresis and aldactone -echo results pending -IV abx, pending BC/SC/UC -f/u PCT improving -f/u cxr in AM -prn Bipap, wean O2 as able, IS/Acapella -Monitor and replace electrolytes and trend chemistry/CBC -basal and SSI, -cont statin -Smoking cessation counseling -PT/OT -CM for placement -f/u with cardiology -ppx: Apixaban/home PPI Time Spent With Patient Time: Total time spent is greater than 50% in coordination of care (as documented) at patient's floor/unit and/or counseling patient: Subsequent: Total time with patient: 50 - 65 Minutes QUALITY VTE Deep Vein Thrombosis/Pulmonary Embolism Present on Admission: No
[2022-07-21 08:03] LABS: ALT/SGPT 15 U/L (<40); AST/SGOT 15 U/L (<32); Albumin 3.3 gm/dL (3.2-5.2); Albumin/Globulin Ratio 1.3 (1.0-2.3); Alkaline Phosphatase 112 U/L (39-117); Bilirubin,Direct < 0.2 mg/dL (0-0.3); Bilirubin,Total 0.4 mg/dL (0.1-1.0); Blood Urea Nitrogen 17 mg/dL (8-23); Calcium 7.9 mg/dL (8.6-10.4); Carbon Dioxide 25 mmol/L (22-30); Chloride 98 mmol/L (96-108); Globulin 2.5 gm/dL (2.2-3.7); Glomerular Filtration Rate 68; Glucose 67 mg/dL (70-105); Lactate Dehydrogenase 222 U/L (135-225); Phosphorous 2.3 mg/dL (2.5-4.5); Triglycerides 88 mg/dL (<150)
[2022-07-21] MEDS: PANTOPRAZOLE 40 MG TABLET PO SCH (08:14)
[2022-07-21] MEDS: INSULIN LISPRO 1 UNIT/0.01 ML UNIT SQ SCH ×4 (08:14→22:10)
[2022-07-21] MEDS ORDERED: SPIRONOLACTONE 25 MG TABLET PO SCH (09:00)
[2022-07-21] MEDS ORDERED: TORSEMIDE 10 MG TABLET PO SCH (09:00)
[2022-07-21] MEDS: DOCUSATE SODIUM 100 MG CAPSULE PO SCH ×2 (09:17→19:31)
[2022-07-21] MEDS: INSULIN GLARGINE, HUMAN 1 UNIT/0.01 ML SQ SCH (09:17)
[2022-07-21] MEDS: SPIRONOLACTONE 25 MG TABLET PO SCH (09:17)
[2022-07-21] MEDS: APIXABAN 5 MG TABLET PO SCH ×2 (09:17→19:31)
[2022-07-21] MEDS: DILTIAZEM 120 MG CAP.XL.24H PO SCH (09:17)
[2022-07-21] MEDS: ESCITALOPRAM 10 MG TABLET PO SCH (09:18)
[2022-07-21] MEDS: FORMOTEROL 4.8 MCG INH SCH ×2 (09:18→22:10)
[2022-07-21] MEDS: ATORVASTATIN 40 MG TABLET PO SCH (09:18)
[2022-07-21] MEDS: CARBIDOPA/LEVODOPA 10/100 TABLET PO SCH ×2 (09:18→19:31)
[2022-07-21] MEDS: BUDESONIDE 160 MCG INH SCH ×2 (09:18→22:10)
[2022-07-21] MEDS: GABAPENTIN 300 MG CAPSULE PO SCH ×3 (09:18→19:31)
[2022-07-21] MEDS: [UNRECOGNIZED DRUG - OTHER] INH SCH ×2 (09:18→22:10)
[2022-07-21] MEDS: MAGNESIUM SULFATE 2 GM/50 ML BAG IV PRN (09:18)
[2022-07-21] MEDS: cefTRIAXone 1 GM VIAL IV SCH (09:18)
[2022-07-21] MEDS ORDERED: IPRATROPIUM/ALBUTEROL 3 ML AMPUL.NEB NEB ONE (11:10)
[2022-07-21] MEDS ORDERED: POLYETHYLENE GLYCOL 3350 17 GM PACKET PO ONE (11:12)
[2022-07-21] MEDS ORDERED: FUROSEMIDE 40 MG/4 ML VIAL IV ONE (11:13)
[2022-07-21] MEDS: AZITHROMYCIN 500 MG in DEXTROSE 5% IN WATER 250 ML IV SCH (11:45)
--- NOTE | 2022-07-21 12:21 | Discharge Summary ---
Discharge Provider Provider IMPORTANT FOLLOW-UP INFORMATION FOR PCP: Patient information: Note initiated : 07/21/22 at 12:19 pm Service Date, if different from initiated Date: [] Patient: Candice Khan a 81 y/o F admitted on 07/19/22 for Fall 1 wk ago, weakness. Chief Complaint: [] Date of admission: 07/19/22 20:48 Primary care physician: Shonna Heck Consults: 07/19/22 Consult to Physician [CONS] Stat Comment: Consulting Provider: Daniel Hoyt Reason For Exam: Physician to Consult COURSE Hospital Course Hospital course: History of present illness: Ms. Khan is a 81 year old F Who presents the ED because she was not acting herself. Per the notes neighbor found her in her chair stating she was not acting herself. Patient did hit her head about a week ago after falling from the toilet. States that she was sitting too long and her legs became numb and when she got up she fell hitting her head. In the ED her heart rate was 130-140. Head CT showed moderate atrophy and chronic ischemic changes throughout. Patient's only complaint is that she does have a headache and some pain from the lump where she hit her head. She was confused with dates when she arrived. When I saw her she said it was 1972 but knew she was at [facility] She knew her name and birthdate. She says she believes it was her neighbor that called. Patient denies any fever chills nausea or vomiting. She denies any chest pain or shortness of breath. She does have a cough which is new. She states she has phlegm but she is not able to cough it out. She had a mild leukocytosis of 14 7. Blood glucose was elevated 314. In the ED she was worked up and evaluated found to have a right lower lobe infiltrate on chest x-ray and treated for pneumonia. She had A. fib RVR possibly flutter. Her initial rate was 147. She also had a troponin of 0.33 and her follow-up with 0.42. She denies any chest pain and EKG nonspecific. She was put on a diltiazem drip which improved her heart rate. She was also found to have a UTI in the ED was started on treatment for that. Patient says she has not done well since her heart medication was changed by Dr. Arellano. She told her pharmacy that but they said it was the same medication. 07/20 Patient on BiPAP overnight switched to nasal cannula. Late morning she appeared to have some respiratory distress ABG shows respiratory acidosis. Placed back on BiPAP. Does have edema and does have rales as well so we will give IV Lasix and monitor urine output closely. She is on diltiazem drip and restarting p.o. diltiazem and will try to drip and transition off the IV diltiazem. She does have a cough. She denies shortness of breath currently but definitely looks a bit labored. She failed the cognitive eval and likely has underlying dementia. 07/21 Patient seen today feeling a bit better today. Mentation but more clear. She is on nasal cannula 1 L currently with good sats. Was on BiPAP overnight. Discussed with patient potential need for short stay to rehab facility but she refused but said she would consider over the next 24 hours. Hypokalemic today on laboratory. Hemoglobin A1c 10.2. Patient was diuresed yesterday. proBNP im proved today. She did have some nausea at 1 point. Present cough but improving as well as shortness of breath. 07/22 Patient says she is feeling a bit better currently on 2 L but good sats and hopefully can bring those down. She does have cough but denies any shortness of breath at rest. Hyponatremia on lab work at this morning. Echo came back showing borderline reduced ejection fraction 40-45 as well as grade 3 diastolic dysfunction and moderately reduced right ventricular systolic function as well as moderate MR. 07/23 Patient no overnight event or new complaints. Now trialing on room air. Patient has occasional cough. But denies shortness of breath. She is refusing long-term facility. However her children are here and believe they can convince her given that her only options as they see it are to rehab or over to [place] with son. Patient high risk for readmission given age and comorbidities and refusal to accept short stay at rehab facility. A: *A. fib w/RVR: improved -echo with EF 40-45%, grade III diastolic dysfxn amd RV systolic dysfxn and WMA *Acute hypoxic/hypercapnic respiratory failure: 2/2 CHF +/- PNA *Acute on likely chronic diastolic(III) CHFand RHFw/moderate MR(valvular dz): and borderline low systolic *suspected PNA: *Sepsis: 2/2 above, improving *UTI: *Encephalopathy: Likely 2/2 above with likely underlying dementia -failed OT cognitive eval *Demand ischemia: Patient denies chest pain. trops flat line *PVD: follows with Dr. 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 fib RVR acute hypoxic respiratory failure CHF pneumonia sepsis UTI Secondary discharge diagnosis: Encephalopathy demand ischemia prophylaxis tobacco abuse diabetes COPD hypertension depression GERD obesity electrolyte disorder Time Spent with Patient Time attestation: Total time spent providing and/or coordinating discharge services: Time spent: Greater than 30 minutes EXAM Constitutional Vitals: Temp Pulse Resp BP Pulse Ox O2 Del Method O2 Flow Rate 98.3 F 105 H 13 128/74 94 Nasal Cannula 1 07/21/22 04:01 07/21/22 07:01 07/21/22 07:01 07/21/22 07:01 07/21/22 07:01 07/21/22 07:01 07/21/22 07:01 Discharge Data Data Completed and Pending Labs on day of discharge: Labs from last 24 hours 07/21/22 07/20/22 05:11 13:23 Sodium 135 Potassium 2.9 L* Chloride 98 Carbon Dioxide 25 Anion Gap 12.0 BUN 17 Creatinine 0.8 GFR Calculation 68 Glucose 67 L Uric Acid 4.0 Calcium 7.9 L Phosphorus 2.3 L Magnesium 1.6 Total Bilirubin 0.4 Direct Bilirubin < 0.2 GGT 79 H AST 15 ALT 15 Alkaline Phosphatase 112 Lactate Dehydrogenase 222 NT-Pro-B Natriuret Pep 2918.0 H Total Protein 5.8 L Albumin 3.3 Globulin 2.5 Albumin/Globulin Ratio 1.3 Triglycerides 88 POC Troponin I 0.32 H Preliminary micro results at discharge 07/19/22 15:52 Blood Culture - Preliminary Blood 07/19/22 15:51 Blood Culture - Preliminary Blood 07/19/22 12:50 Urine Culture - Preliminary Urine - Catheterized Lactobacillus species Discharge Plan Patient/Caregiver Discharge Instructions Activity: increase activity as tolerated Diet: Consistent Carbohydrate Activity Restrictions/Additional Instructions: Referral to see cardiology in 1 to 2 weeks for atrial fibrillation and heart failure. Prescriptions: New lisinopril 2.5 mg Tablet 2.5 mg PO DAILY Qty: 30 0RF Continued diphenhydramine HCl 25 mg capsule 25 mg PO Q8H PRN (Reason: Insomnia) Ensure Original Liquid 1 each PO TIDWMEAL Qty: 1422 6RF escitalopram oxalate 5 mg tablet 5 mg PO QHS Qty: 90 1RF blood-glucose meter [[facility] Met[facility] Gl[facility] M[facility]] [facility] See Rx Instructions .ROUTE .COMPLEX Qty: 1 3RF Dose Instruction: TEST four times a day Rx Instructions: TEST four times a day (DME) pen needle, diabetic [Comfort EZ Pen [place]] 31 gauge x 5/16" needle See Rx Instructions .ROUTE .MEDSUPPLY Qty: 1200 3RF Rx Instructions: Use to inject Fiasp and Lantus Basaglar KwikPen U-100 Insulin 100 unit/mL (3 mL) insulin pen 28 unit SUB-Q BID Qty: 15 0RF True Metrix Glucose Test Strip Strip See Rx Instructions .ROUTE .COMPLEX Qty: 300 3RF Dose Instruction: use 1 TEST STRIP to TEST BLOOD SUGAR four times a day Rx Instructions: use 1 TEST STRIP to TEST BLOOD SUGAR four times a day insulin aspart (niacinamide) 100 unit/mL (3 mL) insulin pen 14 unit SUB-Q .COMPLEX MDD 80 units Qty: 15 3RF Rx Instructions: 14 units subcut ; ondansetron HCl 4 mg tablet See Rx Instructions .ROUTE .COMPLEX Qty: 30 1RF Dose Instruction: TAKE ONE TABLET BY MOUTH NEEDED FOR NAUSEA, MAX 2/DAY Rx Instructions: TAKE ONE TABLET BY MOUTH NEEDED FOR NAUSEA, MAX 2/DAY Eliquis 2.5 mg tablet 2.5 mg PO BID Qty: 180 3RF pantoprazole 40 mg tablet,delayed release (DR/EC) 40 mg PO QDAY Qty: 90 1RF potassium chloride [Klor-Con M20] 20 mEq tablet,ER particles/crystals 20 meq PO BID Qty: 180 1RF gabapentin 600 mg tablet See Rx Instructions .ROUTE .COMPLEX Qty: 90 3RF Dose Instruction: take 1 tablet by mouth three times a day Rx Instructions: take 1 tablet by mouth three times a day carbidopa-levodopa 10-100 mg tablet See Rx Instructions .ROUTE .COMPLEX Qty: 180 1RF Dose Instruction: take 1 tablet by mouth twice a day Rx Instructions: take 1 tablet by mouth twice a day albuterol sulfate 90 mcg/actuation HFA aerosol inhaler 2 puff INHALATION QID PRN (Reason: shortness of breath or wheezing) Qty: 18 3RF dapagliflozin 5 mg tablet 5 mg PO QAM Qty: 90 3RF spironolactone 25 mg tablet 25 mg PO QDAY Qty: 90 0RF atorvastatin [Lipitor] 80 mg tablet 80 mg PO QDAY Qty: 90 1RF diltiazem HCl 360 mg capsule,extended release 24 hr 360 mg PO QAM Qty: 30 4RF torsemide 10 mg tablet 10 mg PO .3 a day Qty: 90 3RF Rx Instructions: take 20mg in morning, and 10mg around noon Breztri Aerosphere 160-9-4.8 mcg/actuation HFA aerosol inhaler 2 inh inhalation QAM AND QPM Qty: 10.7 5RF hydrocodone-acetaminophen 7.5-325 mg tablet 1 tab PO Q4-6H PRN (Reason: pain) Qty: 150 0RF Rx Instructions: Can fill can fill 07/28/22 pantoprazole 40 mg tablet,delayed release (DR/EC) 40 mg PO QDAY Farxiga 5 mg tablet 5 mg PO QAM Follow Up Plan Follow up with: Shonan Heck ARNP [Primary Care Provider] - Patient Disposition: Xfer SNF Prognosis: Fair Rehab Potential: Fair I certify that the patient requires SNF services: Yes Overall status at discharge: patient is progressing back to baseline QUALITY VTE Deep Vein Thrombosis/Pulmonary Embolism Present on Admission: No
[2022-07-22] MEDS: 0.9 % SODIUM CHLORIDE 10 ML SYRINGE IV SCH ×3 (06:01→20:37)
[2022-07-22] MEDS: PANTOPRAZOLE 40 MG TABLET PO SCH (07:01)
[2022-07-22] MEDS: HYDROcodone/APAP 5/325MG TABLET PO PRN ×2 (07:01→20:35)
[2022-07-22] MEDS: INSULIN LISPRO 1 UNIT/0.01 ML UNIT SQ SCH ×4 (07:10→20:33)
[2022-07-22 07:28] LABS: Blood Urea Nitrogen 13 mg/dL (8-23); Calcium 7.9 mg/dL (8.6-10.4); Carbon Dioxide 25 mmol/L (22-30); Chloride 97 mmol/L (96-108); Glomerular Filtration Rate 80; Glucose 127 mg/dL (70-105)
--- NOTE | 2022-07-22 07:41 | XRay Report ---
CLINICAL INFORMATION: Follow-up CHF COMPARISON: None. TECHNIQUE: 07/20/2022 FINDINGS: Mild/moderate cardiomegaly show slight decrease in size. Mediastinum is normal. Pulmonary vessels have returned to near-normal in caliber and interstitial edema has almost totally cleared. Airspace disease in the right base has improved considerably with small residual. Bilateral pleural effusions have decreased and now quite small. IMPRESSION: Near-complete interval resolution in CHF. Small right basilar infiltrate is also improved Interpreted and Authenticated by: Noe Hall 07/22/22
--- NOTE | 2022-07-22 07:45 | Internal Med Progress Note ---
SUBJECTIVE Subjective Patient information: Note initiated : 07/22/22 at 7:44 am Service Date, if different from initiated Date: [] Patient: Candice Khan a 81 y/o F admitted on 07/19/22 for Fall 1 wk ago, weakness. Chief Complaint: [] Interval history: History of present illness: Ms. Khan is a 81 year old F Who presents the ED because she was not acting herself. Per the notes neighbor found her in her chair stating she was not acting herself. Patient did hit her head about a week ago after falling from the toilet. States that she was sitting too long and her legs became numb and when she got up she fell hitting her head. In the ED her heart rate was 130-140. Head CT showed moderate atrophy and chronic ischemic changes throughout. Patient's only complaint is that she does have a headache and some pain from the lump where she hit her head. She was confused with dates when she arrived. When I saw her she said it was 1972 but knew she was at [facility]. She knew her name and birthdate. She says she believes it was her neighbor that called. Patient denies any fever chills nausea or vomiting. She denies any chest pain or shortness of breath. She does have a cough which is new. She states she has phlegm but she is not able to cough it out. She had a mild leukocytosis of 14 7. Blood glucose was elevated 314. In the ED she was worked up and evaluated found to have a right lower lobe infiltrate on chest x-ray and treated for pneumonia. She had A. fib RVR possibly flutter. Her initial rate was 147. She also had a troponin of 0.33 and her follow-up with 0.42. She denies any chest pain and EKG nonspecific. She was put on a diltiazem drip which improved her heart rate. She was also found to have a UTI in the ED was started on treatment for that. Patient says she has not done well since her heart medication was changed by Dr. Arellano. She told her pharmacy that but they said it was the same medication. 07/20 Patient on BiPAP overnight switched to nasal cannula. Late morning she appeared to have some respiratory distress ABG shows respiratory acidosis. Placed back on BiPAP. Does have edema and does have rales as well so we will give IV Lasix and monitor urine output closely. She is on diltiazem drip and restarting p.o. diltiazem and will try to drip and transition off the IV diltiazem. She does have a cough. She denies shortness of breath currently but definitely looks a bit labored. She failed the cognitive eval and likely has underlying dementia. 07/21 Patient seen today feeling a bit better today. Mentation but more clear. She is on nasal cannula 1 L currently with good sats. Was on BiPAP overnight. Discussed with patient potential need for short stay to rehab facility but she refused but said she would consider over the next 24 hours. Hypokalemic today on laboratory. Hemoglobin A1c 10.2. Patient was diuresed yesterday. proBNP improved today. She did have some nausea at 1 point. Present cough but improving as well as shortness of breath. 07/22 Patient says she is feeling a bit better currently on 2 L but good sats and hopefully can bring those down. She does have cough but denies any shortness of breath at rest. Hyponatremia on lab work at this morning. Echo came back showing borderline reduced ejection fraction 40-45 as well as grade 3 diastolic dysfunction and moderately reduced right ventricular systolic function as well as moderate MR. Review of Systems: Occasional headaches. Denies fever/chills//vomiting/chest or abdominal pain/diarrhea. Otherwise see above. Constitutional Vitals: Vital Signs Temp Pulse Resp BP Pulse Ox O2 Del Method O2 Flow Rate 97.9 F 84 22 149/94 93 BiPAP 1 07/22/22 07:11 07/22/22 06:01 07/22/22 06:01 07/22/22 06:01 07/22/22 06:01 07/22/22 04:01 07/21/22 20:14 Period Temp Pulse Resp BP Sys/Purvis Pulse Ox O2 Del Method O2 Flow Rate Last 24 Hr 97.0 F-98 F 73-103 12-29 102-149/60-94 90-100 BiPAP-Nasal Cannula 1-1 Intake and Output 07/21/22 07/22/22 07/22/22 19:59 03:59 11:59 Intake Total 890 Output Total 526 102 195 Balance 364 -102 -195 Weight 82.372 kg Intake & Output: Intake & Output 07/21/22 07/22/22 07/22/22 19:59 03:59 11:59 Intake Total 890 Output Total 526 102 195 Balance 364 -102 -195 Weight 82.372 kg Intake: IV 770 Zithromax 500 mg In Dextrose 5% 250 in Water 250 ml @ 250 mls/hr IV Q24H ELAINE Rx#:[id number] Cardizem 125 mg In Dextrose 5% 0 in Water 100 ml @ 5 MG/HR 5 mls /hr IV Q12H ELAINE Rx#:[id number] Potassium Chloride 40 Meq In 520 Dextrose 5% in Water 500 ml @ 130 mls/hr IV UD PRN Rx#: [id number] Oral 120 Output: Urine Catheter Amount 486 102 195 Void Amount 40 Other: Meal Lunch Percent of Meal Consumed bites Feeding Ability Needs Supervision Urine Appearance Clear Clear Clear Fem Clear Clear Urine Color Light Monica Dark Monica Light Monica Fem Light Monica Light Monica Urine Odor Normal Normal Exam: General: Alert, Awake, mild respiratory distress, obese Eyes/N/T: EOMI, Head/Neck: neck supple, CV: Irregular, No murmurs, Pulm: rhonchi/rales b/l continue to improve, no wheezing today Abd: soft, nontender, +BS x4 Ext: no clubbing/cyanosis, trace-1+ b/l LE edema Neuro: Alert, no focal deficits, moves all extremities, Skin: warm/dry OBJ DATA Labs 07/20/22 05:43 07/22/22 05:07 Labs: Abnormal Lab Results 07/22/22 07/21/22 07/20/22 05:07 05:11 13:23 WBC MCHC RDW Immature Gran % (Auto) Neut % (Auto) Lymph % (Auto) Lymph # (Auto) [place] # (Auto) Immature Gran # Absolute Neutrophils POC pH POC pCO2 POC pO2 POC ABG Base Excess POC VBG pH POC VBG pCO2 at Temp POC VBG pO2 POC VBG HCO3 POC VBG Total CO2 POC Venous O2 Sat POC VBG Base Excess Hgb O2 Saturation Sodium 130 L Potassium 2.9 L* Carbon Dioxide POC BUN BUN Glucose 127 H 67 L POC Glucose Hemoglobin A1c Calcium 7.9 L 7.9 L Phosphorus 2.3 L GGT 79 H Alkaline Phosphatase Lactate Dehydrogenase Troponin T C-Reactive Protein NT-Pro-B Natriuret Pep 2918.0 H Total Protein 5.8 L Procalcitonin Urine Appearance Urine Protein Urine Glucose (UA) Urine Ketones Urine WBC Urine Bacteria Hyaline Casts POC Troponin I 0.32 H 07/20/22 07/20/22 07/20/22 11:33 05:43 05:43 WBC MCHC 30.8 L RDW 16.3 H Immature Gran % (Auto) Neut % (Auto) 79.0 H Lymph % (Auto) 11.0 L Lymph # (Auto) 1.17 L [place] # (Auto) Immature Gran # Absolute Neutrophils 8.43 H POC pH 7.26 L POC pCO2 53.3 H* POC pO2 71 L POC ABG Base Excess -3.0 L POC VBG pH POC VBG pCO2 at Temp POC VBG pO2 POC VBG HCO3 POC VBG Total CO2 POC Venous O2 Sat POC VBG Base Excess Hgb O2 Saturation 91.0 L Sodium Potassium Carbon Dioxide 21 L POC BUN BUN 24 H Glucose POC Glucose Hemoglobin A1c Calcium 8.2 L Phosphorus 2.4 L GGT 90 H Alkaline Phosphatase 124 H Lactate Dehydrogenase 278 H Troponin T C-Reactive Protein NT-Pro-B Natriuret Pep Total Protein Procalcitonin Urine Appearance Urine Protein Urine Glucose (UA) Urine Ketones Urine WBC Urine Bacteria Hyaline Casts POC Troponin I 07/20/22 07/19/22 07/19/22 05:43 19:30 18:20 WBC MCHC RDW Immature Gran % (Auto) Neut % (Auto) Lymph % (Auto) Lymph # (Auto) [place] # (Auto) Immature Gran # Absolute Neutrophils POC pH POC pCO2 POC pO2 POC ABG Base Excess POC VBG pH POC VBG pCO2 at Temp POC VBG pO2 POC VBG HCO3 POC VBG Total CO2 POC Venous O2 Sat POC VBG Base Excess Hgb O2 Saturation Sodium Potassium Carbon Dioxide POC BUN BUN Glucose POC Glucose Hemoglobin A1c 10.2 H Calcium Phosphorus GGT Alkaline Phosphatase Lactate Dehydrogenase Troponin T C-Reactive Protein 1.00 H NT-Pro-B Natriuret Pep Total Protein Procalcitonin 0.12 H Urine Appearance Urine Protein Urine Glucose (UA) Urine Ketones Urine WBC Urine Bacteria Hyaline Casts POC Troponin I 0.42 H 07/19/22 07/19/22 07/19/22 15:09 13:36 12:50 WBC MCHC RDW Immature Gran % (Auto) Neut % (Auto) Lymph % (Auto) Lymph # (Auto) [place] # (Auto) Immature Gran # Absolute Neutrophils POC pH POC pCO2 POC pO2 POC ABG Base Excess POC VBG pH 7.62 H* POC VBG pCO2 at Temp 16.6 L* POC VBG pO2 24 L 87 H POC VBG HCO3 17.1 L POC VBG Total CO2 18.0 L POC Venous O2 Sat 39.0 L 98.0 H POC VBG Base Excess -4.0 L Hgb O2 Saturation Sodium Potassium Carbon Dioxide POC BUN BUN Glucose POC Glucose Hemoglobin A1c Calcium Phosphorus GGT Alkaline Phosphatase Lactate Dehydrogenase Troponin T C-Reactive Protein NT-Pro-B Natriuret Pep Total Protein Procalcitonin Urine Appearance Cloudy A Urine Protein Trace A Urine Glucose (UA) 500 A Urine Ketones 15 A Urine WBC 13 H Urine Bacteria Many A Hyaline Casts 33 H POC Troponin I 07/19/22 07/19/22 07/19/22 11:56 11:45 11:45 WBC MCHC RDW Immature Gran % (Auto) Neut % (Auto) Lymph % (Auto) Lymph # (Auto) [place] # (Auto) Immature Gran # Absolute Neutrophils POC pH POC pCO2 POC pO2 POC ABG Base Excess POC VBG pH POC VBG pCO2 at Temp POC VBG pO2 POC VBG HCO3 POC VBG Total CO2 POC Venous O2 Sat POC VBG Base Excess Hgb O2 Saturation Sodium Potassium Carbon Dioxide POC BUN BUN Glucose POC Glucose Hemoglobin A1c Calcium Phosphorus GGT Alkaline Phosphatase 147 H Lactate Dehydrogenase Troponin T 0.12 H* C-Reactive Protein NT-Pro-B Natriuret Pep 5246.0 H Total Protein Procalcitonin 0.20 H Urine Appearance Urine Protein Urine Glucose (UA) Urine Ketones Urine WBC Urine Bacteria Hyaline Casts POC Troponin I 07/19/22 07/19/22 07/19/22 11:45 11:38 11:37 WBC 14.7 H MCHC RDW 16.2 H Immature Gran % (Auto) 0.6 H Neut % (Auto) Lymph % (Auto) 12.1 L Lymph # (Auto) [place] # (Auto) 1.23 H Immature Gran # 0.09 H Absolute Neutrophils 11.41 H POC pH POC pCO2 POC pO2 POC ABG Base Excess POC VBG pH POC VBG pCO2 at Temp POC VBG pO2 POC VBG HCO3 POC VBG Total CO2 POC Venous O2 Sat POC VBG Base Excess Hgb O2 Saturation Sodium Potassium Carbon Dioxide POC BUN 35 H BUN Glucose POC Glucose 314 H Hemoglobin A1c Calcium Phosphorus GGT Alkaline Phosphatase Lactate Dehydrogenase Troponin T C-Reactive Protein NT-Pro-B Natriuret Pep Total Protein Procalcitonin Urine Appearance Urine Protein Urine Glucose (UA) Urine Ketones Urine WBC Urine Bacteria Hyaline Casts POC Troponin I 0.33 H Meds: Medications Acetaminophen (Acetaminophen 325 Mg Tablet) 650 mg PO Q6HP PRN; Protocol PRN Reason: Per Pain Protocol/Fever > 101 Hydrocodone Bitart/Acetaminophen (Hydrocodone/Apap 5/325mg Tablet) 1 tab PO Q4HP PRN PRN Reason: PAIN LEVEL 3-6 Last Admin: 07/22/22 07:01 Dose: 1 tab Albuterol/Ipratropium (Ipratropium/Albuterol 3 Ml Ampul.Neb) 3 ml NEB Q4HP PRN PRN Reason: Shortness Of Breath Apixaban (Apixaban 5 Mg Tablet) 2.5 mg PO BID [facility] Last Admin: 07/21/22 19:31 Dose: 2.5 mg Atorvastatin Calcium (Atorvastatin 40 Mg Tablet) 80 mg PO DAILY [facility] Last Admin: 07/21/22 09:18 Dose: 80 mg Carbidopa/Levodopa (Carbidopa/Levodopa 10/100 Tablet) 1 tab PO BID [facility] Last Admin: 07/21/22 19:31 Dose: 1 tab Ceftriaxone Sodium (Ceftriaxone 1 Gm Vial) 1 gm IV Q24H [facility] Last Admin: 07/21/22 09:18 Dose: 1 gm Dextrose (Dextrose 50% 50 Ml Vial) 0 ml IV UD PRN PRN Reason: Per Sliding Scale Diagnostic Test (Pha) (Accu-Chek 1 Each Strip) 1 each FS ACHS [facility] Last Admin: 07/22/22 07:05 Dose: 1 each Diltiazem HCl (Diltiazem 120 Mg Cap.Xl.24h) 360 mg PO DAILY [facility] Last Admin: 07/21/22 09:17 Dose: 360 mg Diphenhydramine HCl (Diphenhydramine 25 Mg Capsule) 25 mg PO HSP PRN PRN Reason: Insomnia Docusate Sodium (Docusate Sodium 100 Mg Capsule) 100 mg PO BID [facility] Last Admin: 07/21/22 19:31 Dose: 100 mg Escitalopram Oxalate (Escitalopram 10 Mg Tablet) 5 mg PO DAILY [facility] Last Admin: 07/21/22 09:18 Dose: 5 mg Gabapentin (Gabapentin 300 Mg Capsule) 600 mg PO TID [facility] Last Admin: 07/21/22 19:31 Dose: 600 mg Glucose (Dextrose 31 Gm Oral.Susp) 15 gm PO PRN PRN PRN Reason: Hypoglycemia Potassium Chloride 40 meq/ (Dextrose) 520 mls @ 130 mls/hr IV UD PRN PRN Reason: Potassium < 3 Last Infusion: 07/21/22 14:55 Dose: Infused Magnesium Sulfate (Magnesium Sulfate) 2 gm in 50 mls @ 50 mls/hr IV UD PRN PRN Reason: Magnesium </= 1.6 Last Infusion: 07/21/22 11:54 Dose: Infused Diltiazem HCl 125 mg/ Dextrose 125 mls @ 5 mls/hr IV Q12HP PRN; Protocol PRN Reason: Tachyarrhythmias Insulin Glargine (Insulin Glargine, Human 1 Unit/0.01 Ml) 10 unit SQ DAILY [facility] Last Admin: 07/21/22 09:17 Dose: 10 units Insulin Human Lispro (Insulin Lispro 1 Unit/0.01 Ml Unit) 0 unit SQ ACHS [facility]; Protocol Last Admin: 07/22/22 07:10 Dose: 2 units Metoprolol Tartrate (Metoprolol Tartrate 5 Mg/5 Ml Vial) 5 mg IV Q2HP PRN PRN Reason: Tachyarrhythmias HR>110 Ondansetron HCl (Ondansetron 4 Mg/2 Ml Vial) 4 mg IV Q4HP PRN PRN Reason: Nausea And Vomiting Pantoprazole Sodium (Pantoprazole 40 Mg Tablet) 40 mg PO ACB [facility] Last Admin: 07/22/22 07:01 Dose: 40 mg Budesonide 160 Mcg- Glycopyrolate 9 Mcg- Formoterol 4.8 Mcg [ Breztri Aerosphere] Inhaler 2 dose INH BID [facility] Last Admin: 07/21/22 22:10 Dose: Not Given Polyethylene Glycol (Polyethylene Glycol 3350 17 Gm Packet) 17 gm PO DAILYP PRN PRN Reason: Constipation Potassium Chloride (Potassium Chloride 20 Meq Tablet) 40 meq PO UD PRN PRN Reason: Potssium is 3-3.5 Potassium Chloride (Potassium Chloride 20 Meq Tablet) 40 meq PO UD PRN PRN Reason: Potassium < 3 Last Admin: 07/21/22 09:20 Dose: 40 meq Senna (Sennosides 1 Tablet) 2 tab PO DAILYP PRN PRN Reason: Constipation Last Admin: 07/21/22 19:40 Dose: 2 tab Sodium Chloride (0.9 % Sodium Chloride 10 Ml Syringe) 10 ml IV Q8 [facility] Last Admin: 07/22/22 06:01 Dose: 10 ml Spironolactone (Spironolactone 25 Mg Tablet) 25 mg PO QDAY [facility] Last Admin: 07/21/22 09:17 Dose: 25 mg A/P Narrative A/P Narrative: A: *A. fib w/RVR: improved -on Dilt/Apixaban at home -echo with EF 40-45%, grade III diastolic dysfxn amd RV systolic dysfxn and WMA *Acute hypoxic/hypercapnic respiratory failure: 2/2 CHF +/- PNA -initially on bipap and yesterday, placed on NC 1L this morning *Acute on likely chronic diastolic(III) CHF and RHF w/moderate MR(valvular dz): and borderline low systolic -descent diuresis yesterday *suspected PNA: *Sepsis: 2/2 above, improving -tachycardia/tachypnea/leukocytosis *UTI: *Encephalopathy: Likely 2/2 above with likely underlying dementia -failed OT cognitive eval *Demand ischemia: Patient denies chest pain. trops flat line *PVD: follows with Dr. 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, poorly controlled *COPD(not on Home O2): *HTN/HLD: *Depression/anxiety: *GERD: *Obesity: BMI 32, diet/exercise lifestyle changes *Hypophosphatemia/hypokalemia/Hyponatremia: P: -cont oral dilt -start home torsemide and aldactone, prn IV -IV abx, pending BC/SC/UC -f/u PCT improving -f/u cxr much improved -prn Bipap, wean O2 as able, IS/Acapella -Monitor and replace electrolytes and trend chemistry/CBC -basal and SSI, -cont statin -Smoking cessation counseling -PT/OT -CM for placement -f/u with cardiology -ppx: Apixaban/home PPI Time Spent With Patient Time: Total time spent is greater than 50% in coordination of care (as documented) at patient's floor/unit and/or counseling patient: Subsequent: Total time with patient: 35 - 49 minutes QUALITY VTE Deep Vein Thrombosis/Pulmonary Embolism Present on Admission: No
[2022-07-22] MEDS: cefTRIAXone 1 GM VIAL IV SCH (08:10)
[2022-07-22] MEDS: ESCITALOPRAM 10 MG TABLET PO SCH (08:10)
[2022-07-22] MEDS: CARBIDOPA/LEVODOPA 10/100 TABLET PO SCH ×2 (08:10→20:35)
[2022-07-22] MEDS: ATORVASTATIN 40 MG TABLET PO SCH (08:10)
[2022-07-22] MEDS: DILTIAZEM 120 MG CAP.XL.24H PO SCH (08:11)
[2022-07-22] MEDS: APIXABAN 5 MG TABLET PO SCH ×2 (08:11→20:34)
[2022-07-22] MEDS: DOCUSATE SODIUM 100 MG CAPSULE PO SCH ×2 (08:11→20:34)
[2022-07-22] MEDS: SPIRONOLACTONE 25 MG TABLET PO SCH (08:11)
[2022-07-22] MEDS: GABAPENTIN 300 MG CAPSULE PO SCH ×3 (08:11→20:34)
[2022-07-22] MEDS: INSULIN GLARGINE, HUMAN 1 UNIT/0.01 ML SQ SCH (08:11)
[2022-07-22] MEDS: TORSEMIDE 10 MG TABLET PO SCH ×2 (09:44→14:18)
[2022-07-22] MEDS: [UNRECOGNIZED DRUG - OTHER] INH SCH ×2 (09:44→20:34)
[2022-07-22] MEDS: FORMOTEROL 4.8 MCG INH SCH ×2 (09:44→20:34)
[2022-07-22] MEDS: BUDESONIDE 160 MCG INH SCH ×2 (09:44→20:34)
[2022-07-22] MEDS: PHOSPHORUS 250 MG TABLET PO SCH ×2 (11:21→20:35)
[2022-07-22] MEDS: MAGNESIUM SULFATE 2 GM/50 ML BAG IV PRN (20:59)
[2022-07-22] MEDS ORDERED: LOPERAMIDE 2 MG CAPSULE PO PRN (21:56)
[2022-07-23] MEDS: HYDROcodone/APAP 5/325MG TABLET PO PRN ×4 (06:13→19:20)
[2022-07-23] MEDS: 0.9 % SODIUM CHLORIDE 10 ML SYRINGE IV SCH ×3 (06:13→21:34)
[2022-07-23 07:57] LABS: ALT/SGPT 15 U/L (<40); AST/SGOT 10 U/L (<32); Albumin 3.2 gm/dL (3.2-5.2); Albumin/Globulin Ratio 1.1 (1.0-2.3); Alkaline Phosphatase 109 U/L (39-117); Bilirubin,Direct < 0.2 mg/dL (0-0.3); Bilirubin,Total 0.4 mg/dL (0.1-1.0); Blood Urea Nitrogen 11 mg/dL (8-23); Calcium 7.9 mg/dL (8.6-10.4); Carbon Dioxide 26 mmol/L (22-30); Chloride 92 mmol/L (96-108); Globulin 2.8 gm/dL (2.2-3.7); Glomerular Filtration Rate 68; Glucose 138 mg/dL (70-105); Lactate Dehydrogenase 233 U/L (135-225); Phosphorous 3.2 mg/dL (2.5-4.5); Triglycerides 74 mg/dL (<150); Uric Acid 3.7 mg/dL (2.5-8.0)
--- NOTE | 2022-07-23 08:07 | Internal Med Progress Note ---
SUBJECTIVE Subjective Patient information: Note initiated : 07/23/22 at 8:04 am Service Date, if different from initiated Date: [] Patient: Candice Khan a 81 y/o F admitted on 07/19/22 for Fall 1 wk ago, weakness. Chief Complaint: [] Interval history: History of present illness: Ms. Khan is a 81 year old F Who presents the ED because she was not acting herself. Per the notes neighbor found her in her chair stating she was not acting herself. Patient did hit her head about a week ago after falling from the toilet. States that she was sitting too long and her legs became numb and when she got up she fell hitting her head. In the ED her heart rate was 130-140. Head CT showed moderate atrophy and chronic ischemic changes throughout. Patient's only complaint is that she does have a headache and some pain from the lump where she hit her head. She was confused with dates when she arrived. When I saw her she said it was 1972 but knew she was at [facility]. She knew her name and birthdate. She says she believes it was her neighbor that called. Patient denies any fever chills nausea or vomiting. She denies any chest pain or shortness of breath. She does have a cough which is new. She states she has phlegm but she is not able to cough it out. She had a mild leukocytosis of 14 7. Blood glucose was elevated 314. In the ED she was worked up and evaluated found to have a right lower lobe infiltrate on chest x-ray and treated for pneumonia. She had A. fib RVR possibly flutter. Her initial rate was 147. She also had a troponin of 0.33 and her follow-up with 0.42. She denies any chest pain and EKG nonspecific. She was put on a diltiazem drip which improved her heart rate. She was also found to have a UTI in the ED was started on treatment for that. Patient says she has not done well since her heart medication was changed by Dr. Arellano. She told her pharmacy that but they said it was the same medication. 07/20 Patient on BiPAP overnight switched to nasal cannula. Late morning she appeared to have some respiratory distress ABG shows respiratory acidosis. Placed back on BiPAP. Does have edema and does have rales as well so we will give IV Lasix and monitor urine output closely. She is on diltiazem drip and restarting p.o. diltiazem and will try to drip and transition off the IV diltiazem. She does have a cough. She denies shortness of breath currently but definitely looks a bit labored. She failed the cognitive eval and likely has underlying dementia. 07/21 Patient seen today feeling a bit better today. Mentation but more clear. She is on nasal cannula 1 L currently with good sats. Was on BiPAP overnight. Discussed with patient potential need for short stay to rehab facility but she refused but said she would consider over the next 24 hours. Hypokalemic today on laboratory. Hemoglobin A1c 10.2. Patient was diuresed yesterday. proBNP improved today. She did have some nausea at 1 point. Present cough but improving as well as shortness of breath. 07/22 Patient says she is feeling a bit better currently on 2 L but good sats and hopefully can bring those down. She does have cough but denies any shortness of breath at rest. Hyponatremia on lab work at this morning. Echo came back showing borderline reduced ejection fraction 40-45 as well as grade 3 diastolic dysfunction and moderately reduced right ventricular systolic function as well as moderate MR. 07/23 Patient no overnight event or new complaints. Now trialing on room air. Patient has occasional cough. But denies shortness of breath. She is refusing assisted facility. However her children are here and believe they can convince her given that her only options as they see it are to rehab or over to [place] with son. Review of Systems: Occasional headaches. Denies fever/chills//vomiting/chest or abdominal pain/diarrhea. Otherwise see above. Constitutional Vitals: Vital Signs Temp Pulse Resp BP Pulse Ox O2 Del Method O2 Flow Rate 97.9 F 80 18 140/66 91 Room Air 0 07/23/22 04:01 07/23/22 06:01 07/23/22 06:01 07/23/22 06:01 07/23/22 06:01 07/23/22 04:01 07/23/22 04:01 Period Temp Pulse Resp BP Sys/Purvis Pulse Ox O2 Del Method O2 Flow Rate Last 24 Hr 97.1 F-98.2 F 75-95 14-24 104-141/52-90 88-97 Nasal Cannula- Room Air 0-3.5 Intake and Output 07/22/22 07/23/22 07/23/22 19:59 03:59 11:59 Intake Total 120 530 Output Total 2009 1195 235 Balance -1890 -665 -235 Weight 80.467 kg Intake & Output: Intake & Output 07/22/22 07/23/22 07/23/22 19:59 03:59 11:59 Intake Total 120 530 Output Total 2009 1195 235 Balance -5090 -665 -300 Weight 80.467 kg Intake: IV 50 Oral 120 480 Output: Urine Catheter Amount 2009 1195 235 Other: Meal Dinner Percent of Meal Consumed 50% Feeding Ability Independent Urine Appearance Clear Clear Clear Fem Clear Urine Color Yellow Yellow Bright Yellow Fem Yellow Urine Odor Normal Stool Size Large Large Stool Color Brown Brown Stool Consistency Soft Loose Loose # Bowel Movements 1 # of times incontinent of 1 1 Bowels Exam: General: Alert, Awake, no acute distress, obese Eyes/N/T: EOMI, Head/Neck: neck supple, CV: Irregular, No murmurs, Pulm: decreased BS b/l, no rales, no wheezing today Abd: soft, nontender, +BS x4 Ext: no clubbing/cyanosis, trace-1+ b/l LE edema Neuro: Alert, no focal deficits, moves all extremities, Skin: warm/dry OBJ DATA Labs 07/20/22 05:43 07/23/22 05:55 Labs: Abnormal Lab Results 07/23/22 07/22/22 07/21/22 05:55 05:07 05:11 POC pH POC pCO2 POC pO2 POC ABG Base Excess Hgb O2 Saturation Sodium 131 L 130 L Potassium 2.9 L* Chloride 92 L Glucose 138 H 127 H 67 L Calcium 7.9 L 7.9 L 7.9 L Phosphorus 2.3 L GGT 68 H 79 H Lactate Dehydrogenase 233 H NT-Pro-B Natriuret Pep 2918.0 H Total Protein 5.8 L POC Troponin I 07/20/22 07/20/22 13:23 11:33 POC pH 7.26 L POC pCO2 53.3 H* POC pO2 71 L POC ABG Base Excess -3.0 L Hgb O2 Saturation 91.0 L Sodium Potassium Chloride Glucose Calcium Phosphorus GGT Lactate Dehydrogenase NT-Pro-B Natriuret Pep Total Protein POC Troponin I 0.32 H Meds: Medications Acetaminophen (Acetaminophen 325 Mg Tablet) 650 mg PO Q6HP PRN; Protocol PRN Reason: Per Pain Protocol/Fever > 101 Hydrocodone Bitart/Acetaminophen (Hydrocodone/Apap 5/325mg Tablet) 1 tab PO Q4HP PRN PRN Reason: PAIN LEVEL 3-6 Last Admin: 07/23/22 06:13 Dose: 1 tab Albuterol/Ipratropium (Ipratropium/Albuterol 3 Ml Ampul.Neb) 3 ml NEB Q4HP PRN PRN Reason: Shortness Of Breath Apixaban (Apixaban 5 Mg Tablet) 2.5 mg PO BID [facility] Last Admin: 07/22/22 20:34 Dose: 2.5 mg Atorvastatin Calcium (Atorvastatin 40 Mg Tablet) 80 mg PO DAILY [facility] Last Admin: 07/22/22 08:10 Dose: 80 mg Carbidopa/Levodopa (Carbidopa/Levodopa 10/100 Tablet) 1 tab PO BID [facility] Last Admin: 07/22/22 20:35 Dose: 1 tab Ceftriaxone Sodium (Ceftriaxone 1 Gm Vial) 1 gm IV Q24H [facility] Last Admin: 07/22/22 08:10 Dose: 1 gm Dextrose (Dextrose 50% 50 Ml Vial) 0 ml IV UD PRN PRN Reason: Per Sliding Scale Diagnostic Test (Pha) (Accu-Chek 1 Each Strip) 1 each FS ACHS [facility] Last Admin: 07/22/22 23:25 Dose: 1 each Diltiazem HCl (Diltiazem 120 Mg Cap.Xl.24h) 360 mg PO DAILY [facility] Last Admin: 07/22/22 08:11 Dose: 360 mg Diphenhydramine HCl (Diphenhydramine 25 Mg Capsule) 25 mg PO HSP PRN PRN Reason: Insomnia Escitalopram Oxalate (Escitalopram 10 Mg Tablet) 5 mg PO DAILY [facility] Last Admin: 07/22/22 08:10 Dose: 5 mg Gabapentin (Gabapentin 300 Mg Capsule) 600 mg PO TID [facility] Last Admin: 07/22/22 20:34 Dose: 600 mg Glucose (Dextrose 31 Gm Oral.Susp) 15 gm PO PRN PRN PRN Reason: Hypoglycemia Potassium Chloride 40 meq/ (Dextrose) 520 mls @ 130 mls/hr IV UD PRN PRN Reason: Potassium < 3 Last Infusion: 07/21/22 14:55 Dose: Infused Magnesium Sulfate (Magnesium Sulfate) 2 gm in 50 mls @ 50 mls/hr IV UD PRN PRN Reason: Magnesium </= 1.6 Last Infusion: 07/22/22 21:59 Dose: Infused Diltiazem HCl 125 mg/ Dextrose 125 mls @ 5 mls/hr IV Q12HP PRN; Protocol PRN Reason: Tachyarrhythmias Insulin Glargine (Insulin Glargine, Human 1 Unit/0.01 Ml) 10 unit SQ DAILY [facility] Last Admin: 07/22/22 08:11 Dose: 10 units Insulin Human Lispro (Insulin Lispro 1 Unit/0.01 Ml Unit) 0 unit SQ ACHS [facility]; Protocol Last Admin: 07/22/22 20:33 Dose: 10 units Loperamide HCl (Loperamide 2 Mg Capsule) 2 mg PO PRN PRN PRN Reason: Diarrhea Last Admin: 07/22/22 22:26 Dose: 2 mg Metoprolol Tartrate (Metoprolol Tartrate 5 Mg/5 Ml Vial) 5 mg IV Q2HP PRN PRN Reason: Tachyarrhythmias HR>110 Ondansetron HCl (Ondansetron 4 Mg/2 Ml Vial) 4 mg IV Q4HP PRN PRN Reason: Nausea And Vomiting Pantoprazole Sodium (Pantoprazole 40 Mg Tablet) 40 mg PO ACB [facility] Last Admin: 07/22/22 07:01 Dose: 40 mg Budesonide 160 Mcg- Glycopyrolate 9 Mcg- Formoterol 4.8 Mcg [ Breztri Aerosphere] Inhaler 2 dose INH BID [facility] Last Admin: 07/22/22 20:34 Dose: Not Given Polyethylene Glycol (Polyethylene Glycol 3350 17 Gm Packet) 17 gm PO DAILYP PRN PRN Reason: Constipation Potassium Chloride (Potassium Chloride 20 Meq Tablet) 40 meq PO UD PRN PRN Reason: Potssium is 3-3.5 Potassium Chloride (Potassium Chloride 20 Meq Tablet) 40 meq PO UD PRN PRN Reason: Potassium < 3 Last Admin: 07/21/22 09:20 Dose: 40 meq Senna (Sennosides 1 Tablet) 2 tab PO DAILYP PRN PRN Reason: Constipation Last Admin: 07/21/22 19:40 Dose: 2 tab Sodium Chloride (0.9 % Sodium Chloride 10 Ml Syringe) 10 ml IV Q8 [facility] Last Admin: 07/23/22 06:13 Dose: 10 ml Spironolactone (Spironolactone 25 Mg Tablet) 25 mg PO QDAY [facility] Last Admin: 07/22/22 08:11 Dose: 25 mg Torsemide (Torsemide 10 Mg Tablet) 20 mg PO DAILY [facility] Last Admin: 07/22/22 09:44 Dose: 20 mg Torsemide (Torsemide 10 Mg Tablet) 10 mg PO DAILY [facility] Last Admin: 07/22/22 14:18 Dose: 10 mg A/P Narrative A/P Narrative: A: *A. fib w/RVR: improved -on Dilt/Apixaban at home -echo with EF 40-45%, grade III diastolic dysfxn amd RV systolic dysfxn and WMA *Acute hypoxic/hypercapnic respiratory failure: 2/2 CHF +/- PNA -initially on bipap now trial on room air with sats 89-93 *Acute on likely chronic diastolic(III) CHF and RHF w/moderate MR(valvular dz): and borderline low systolic -good diuresis *suspected PNA: *Sepsis: 2/2 above, improving -tachycardia/tachypnea/leukocytosis *UTI: *Encephalopathy: Likely 2/2 above with likely underlying dementia -failed OT cognitive eval *Demand ischemia: Patient denies chest pain. trops flat line *PVD: follows with Dr. 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, poorly controlled *COPD(not on Home O2): *HTN/HLD: *Depression/anxiety: *GERD: *Obesity: BMI 32, diet/exercise lifestyle changes *Hypophosphatemia/hypokalemia/Hyponatremia: improving P: -cont oral dilt -started home torsemide and aldactone, prn IV -IV abx, pending BC/SC/UC -wean O2 as able, IS/Acapella -Monitor and replace electrolytes and trend chemistry/CBC -basal and SSI, -cont statin -Smoking cessation counseling -PT/OT -CM for placement -f/u with cardiology -ppx: Apixaban/home PPI Time Spent With Patient Time: Total time spent is greater than 50% in coordination of care (as documented) at patient's floor/unit and/or counseling patient: Subsequent: Total time with patient: 35 - 49 minutes QUALITY VTE Deep Vein Thrombosis/Pulmonary Embolism Present on Admission: No
[2022-07-23] MEDS: INSULIN LISPRO 1 UNIT/0.01 ML UNIT SQ SCH ×4 (08:15→21:32)
[2022-07-23] MEDS: PANTOPRAZOLE 40 MG TABLET PO SCH (08:15)
[2022-07-23] MEDS: GABAPENTIN 300 MG CAPSULE PO SCH ×3 (08:15→21:10)
[2022-07-23] MEDS: TORSEMIDE 10 MG TABLET PO SCH ×2 (08:15→08:16)
[2022-07-23] MEDS: SPIRONOLACTONE 25 MG TABLET PO SCH (08:16)
[2022-07-23] MEDS: ATORVASTATIN 40 MG TABLET PO SCH (08:16)
[2022-07-23] MEDS: APIXABAN 5 MG TABLET PO SCH ×2 (08:16→21:09)
[2022-07-23] MEDS: ESCITALOPRAM 10 MG TABLET PO SCH (08:16)
[2022-07-23] MEDS: DILTIAZEM 120 MG CAP.XL.24H PO SCH (08:16)
[2022-07-23] MEDS: INSULIN GLARGINE, HUMAN 1 UNIT/0.01 ML SQ SCH (08:16)
[2022-07-23] MEDS: [UNRECOGNIZED DRUG - OTHER] INH SCH ×2 (08:17→21:34)
[2022-07-23] MEDS: FORMOTEROL 4.8 MCG INH SCH ×2 (08:17→21:34)
[2022-07-23] MEDS: BUDESONIDE 160 MCG INH SCH ×2 (08:17→21:34)
[2022-07-23] MEDS: CARBIDOPA/LEVODOPA 10/100 TABLET PO SCH ×2 (08:17→21:10)
[2022-07-23] MEDS: cefTRIAXone 1 GM VIAL IV SCH (08:17)
[2022-07-23] MEDS: LISINOPRIL 2.5 MG TABLET PO SCH (12:11)
[2022-07-23] MEDS: ACETAMINOPHEN 325 MG TABLET PO PRN (17:01)
[2022-07-24] MEDS: HYDROcodone/APAP 5/325MG TABLET PO PRN ×4 (00:45→13:39)
[2022-07-24] MEDS: 0.9 % SODIUM CHLORIDE 10 ML SYRINGE IV SCH ×3 (05:13→22:00)
--- NOTE | 2022-07-24 07:30 | Internal Med Progress Note ---
SUBJECTIVE Subjective Patient information: Note initiated : 07/24/22 at 7:28 am Service Date, if different from initiated Date: [] Patient: Candice Khan a 81 y/o F admitted on 07/19/22 for Fall 1 wk ago, weakness. Chief Complaint: [] Interval history: History of present illness: Ms. Khan is a 81 year old F Who presents the ED because she was not acting herself. Per the notes neighbor found her in her chair stating she was not acting herself. Patient did hit her head about a week ago after falling from the toilet. States that she was sitting too long and her legs became numb and when she got up she fell hitting her head. In the ED her heart rate was 130-140. Head CT showed moderate atrophy and chronic ischemic changes throughout. Patient's only complaint is that she does have a headache and some pain from the lump where she hit her head. She was confused with dates when she arrived. When I saw her she said it was 1972 but knew she was at [facility]. She knew her name and birthdate. She says she believes it was her neighbor that called. Patient denies any fever chills nausea or vomiting. She denies any chest pain or shortness of breath. She does have a cough which is new. She states she has phlegm but she is not able to cough it out. She had a mild leukocytosis of 14 7. Blood glucose was elevated 314. In the ED she was worked up and evaluated found to have a right lower lobe infiltrate on chest x-ray and treated for pneumonia. She had A. fib RVR possibly flutter. Her initial rate was 147. She also had a troponin of 0.33 and her follow-up with 0.42. She denies any chest pain and EKG nonspecific. She was put on a diltiazem drip which improved her heart rate. She was also found to have a UTI in the ED was started on treatment for that. Patient says she has not done well since her heart medication was changed by Dr. Arellano. She told her pharmacy that but they said it was the same medication. 07/20 Patient on BiPAP overnight switched to nasal cannula. Late morning she appeared to have some respiratory distress ABG shows respiratory acidosis. Placed back on BiPAP. Does have edema and does have rales as well so we will give IV Lasix and monitor urine output closely. She is on diltiazem drip and restarting p.o. diltiazem and will try to drip and transition off the IV diltiazem. She does have a cough. She denies shortness of breath currently but definitely looks a bit labored. She failed the cognitive eval and likely has underlying dementia. 07/21 Patient seen today feeling a bit better today. Mentation but more clear. She is on nasal cannula 1 L currently with good sats. Was on BiPAP overnight. Discussed with patient potential need for short stay to rehab facility but she refused but said she would consider over the next 24 hours. Hypokalemic today on laboratory. Hemoglobin A1c 10.2. Patient was diuresed yesterday. proBNP improved today. She did have some nausea at 1 point. Present cough but improving as well as shortness of breath. 07/22 Patient says she is feeling a bit better currently on 2 L but good sats and hopefully can bring those down. She does have cough but denies any shortness of breath at rest. Hyponatremia on lab work at this morning. Echo came back showing borderline reduced ejection fraction 40-45 as well as grade 3 diastolic dysfunction and moderately reduced right ventricular systolic function as well as moderate MR. 07/23 Patient no overnight event or new complaints. Now trialing on room air. Patient has occasional cough. But denies shortness of breath. She is refusing care home facility. However her children are here and believe they can convince her given that her only options as they see it are to rehab or over to [place] with son. 07/24 Patient 1 L nasal cannula. Occasional cough. No overnight event or new complaints. Sitting up in bed eating breakfast. Review of Systems: Occasional headaches. Denies fever/chills//vomiting/chest or abdominal pain/diarrhea. Otherwise see above. Constitutional Vitals: Vital Signs Temp Pulse Resp BP Pulse Ox O2 Del Method O2 Flow Rate 97.5 F 72 11 L 101/39 92 Nasal Cannula 1 07/24/22 04:01 07/24/22 05:00 07/24/22 05:00 07/24/22 04:01 07/24/22 05:00 07/24/22 04:01 07/24/22 04:01 Period Temp Pulse Resp BP Sys/Purvis Pulse Ox O2 Del Method O2 Flow Rate Last 24 Hr 97.0 F-97.8 F 72-95 11-27 101-146/39-76 85-96 Nasal Cannula- Room Air 0-1 Intake and Output 07/23/22 07/24/22 07/24/22 19:59 03:59 11:59 Intake Total 120 250 Output Total 625 500 125 Balance -505 -500 125 Weight 80.377 kg Intake & Output: Intake & Output 07/23/22 07/24/22 07/24/22 19:59 03:59 11:59 Intake Total 120 250 Output Total 625 500 125 Balance -505 -500 125 Weight 80.377 kg Intake: Oral 120 250 Output: Urine Catheter Amount 625 500 125 Other: Meal Dinner Percent of Meal Consumed 50% Feeding Ability Assist with Tray Set Up Urine Appearance Clear Clear Clear Fem Clear Urine Color Yellow Yellow Yellow Fem Pale Urine Odor Normal Stool Size Large Stool Color Brown Stool Consistency Soft Exam: General: Alert, Awake, no acute distress, obese Eyes/N/T: EOMI, Head/Neck: neck supple, CV: Irregular, No murmurs, Pulm: decreased BS b/l, no rales, no wheezing today Abd: soft, nontender, +BS x4 Ext: no clubbing/cyanosis, trace b/l LE edema Neuro: Alert, no focal deficits, moves all extremities, Skin: warm/dry OBJ DATA Labs 07/20/22 05:43 07/23/22 05:55 Labs: Abnormal Lab Results 07/23/22 07/22/22 07/21/22 05:55 05:07 05:11 Sodium 131 L 130 L Potassium 2.9 L* Chloride 92 L Glucose 138 H 127 H 67 L Calcium 7.9 L 7.9 L 7.9 L Phosphorus 2.3 L GGT 68 H 79 H Lactate Dehydrogenase 233 H NT-Pro-B Natriuret Pep 2918.0 H Total Protein 5.8 L Meds: Medications Acetaminophen (Acetaminophen 325 Mg Tablet) 650 mg PO Q6HP PRN; Protocol PRN Reason: Per Pain Protocol/Fever > 101 Last Admin: 07/23/22 17:01 Dose: 650 mg Hydrocodone Bitart/Acetaminophen (Hydrocodone/Apap 5/325mg Tablet) 1 tab PO Q4HP PRN PRN Reason: PAIN LEVEL 3-6 Last Admin: 07/24/22 05:13 Dose: 1 tab Albuterol/Ipratropium (Ipratropium/Albuterol 3 Ml Ampul.Neb) 3 ml NEB Q4HP PRN PRN Reason: Shortness Of Breath Apixaban (Apixaban 5 Mg Tablet) 2.5 mg PO BID [facility] Last Admin: 07/23/22 21:09 Dose: 2.5 mg Atorvastatin Calcium (Atorvastatin 40 Mg Tablet) 80 mg PO DAILY [facility] Last Admin: 07/23/22 08:16 Dose: 80 mg Carbidopa/Levodopa (Carbidopa/Levodopa 10/100 Tablet) 1 tab PO BID [facility] Last Admin: 07/23/22 21:10 Dose: 1 tab Ceftriaxone Sodium (Ceftriaxone 1 Gm Vial) 1 gm IV Q24H [facility] Last Admin: 07/23/22 08:17 Dose: 1 gm Dextrose (Dextrose 50% 50 Ml Vial) 0 ml IV UD PRN PRN Reason: Per Sliding Scale Diagnostic Test (Pha) (Accu-Chek 1 Each Strip) 1 each FS ACHS [facility] Last Admin: 07/23/22 21:33 Dose: 1 each Diltiazem HCl (Diltiazem 120 Mg Cap.Xl.24h) 360 mg PO DAILY [facility] Last Admin: 07/23/22 08:16 Dose: 360 mg Diphenhydramine HCl (Diphenhydramine 25 Mg Capsule) 25 mg PO HSP PRN PRN Reason: Insomnia Escitalopram Oxalate (Escitalopram 10 Mg Tablet) 5 mg PO DAILY [facility] Last Admin: 07/23/22 08:16 Dose: 5 mg Gabapentin (Gabapentin 300 Mg Capsule) 600 mg PO TID [facility] Last Admin: 07/23/22 21:10 Dose: 600 mg Glucose (Dextrose 31 Gm Oral.Susp) 15 gm PO PRN PRN PRN Reason: Hypoglycemia Potassium Chloride 40 meq/ (Dextrose) 520 mls @ 130 mls/hr IV UD PRN PRN Reason: Potassium < 3 Last Infusion: 07/21/22 14:55 Dose: Infused Magnesium Sulfate (Magnesium Sulfate) 2 gm in 50 mls @ 50 mls/hr IV UD PRN PRN Reason: Magnesium </= 1.6 Last Infusion: 07/22/22 21:59 Dose: Infused Diltiazem HCl 125 mg/ Dextrose 125 mls @ 5 mls/hr IV Q12HP PRN; Protocol PRN Reason: Tachyarrhythmias Insulin Glargine (Insulin Glargine, Human 1 Unit/0.01 Ml) 10 unit SQ DAILY [facility] Last Admin: 07/23/22 08:16 Dose: 10 units Insulin Human Lispro (Insulin Lispro 1 Unit/0.01 Ml Unit) 0 unit SQ ACHS [facility]; Protocol Last Admin: 07/23/22 21:32 Dose: 8 units Lisinopril (Lisinopril 2.5 Mg Tablet) 2.5 mg PO DAILY [facility] Last Admin: 07/23/22 12:11 Dose: 2.5 mg Loperamide HCl (Loperamide 2 Mg Capsule) 2 mg PO PRN PRN PRN Reason: Diarrhea Last Admin: 07/22/22 22:26 Dose: 2 mg Metoprolol Tartrate (Metoprolol Tartrate 5 Mg/5 Ml Vial) 5 mg IV Q2HP PRN PRN Reason: Tachyarrhythmias HR>110 Ondansetron HCl (Ondansetron 4 Mg/2 Ml Vial) 4 mg IV Q4HP PRN PRN Reason: Nausea And Vomiting Pantoprazole Sodium (Pantoprazole 40 Mg Tablet) 40 mg PO ACB [facility] Last Admin: 07/23/22 08:15 Dose: 40 mg Budesonide 160 Mcg- Glycopyrolate 9 Mcg- Formoterol 4.8 Mcg [ Breztri Aerosphere] Inhaler 2 dose INH BID [facility] Last Admin: 07/23/22 21:34 Dose: Not Given Polyethylene Glycol (Polyethylene Glycol 3350 17 Gm Packet) 17 gm PO DAILYP PRN PRN Reason: Constipation Potassium Chloride (Potassium Chloride 20 Meq Tablet) 40 meq PO UD PRN PRN Reason: Potssium is 3-3.5 Potassium Chloride (Potassium Chloride 20 Meq Tablet) 40 meq PO UD PRN PRN Reason: Potassium < 3 Last Admin: 07/21/22 09:20 Dose: 40 meq Senna (Sennosides 1 Tablet) 2 tab PO DAILYP PRN PRN Reason: Constipation Last Admin: 07/21/22 19:40 Dose: 2 tab Sodium Chloride (0.9 % Sodium Chloride 10 Ml Syringe) 10 ml IV Q8 [facility] Last Admin: 07/24/22 05:13 Dose: 10 ml Spironolactone (Spironolactone 25 Mg Tablet) 25 mg PO QDAY [facility] Last Admin: 07/23/22 08:16 Dose: 25 mg Torsemide (Torsemide 10 Mg Tablet) 20 mg PO DAILY [facility] Last Admin: 07/23/22 08:15 Dose: 20 mg Torsemide (Torsemide 10 Mg Tablet) 10 mg PO DAILY [facility] Last Admin: 07/23/22 08:16 Dose: 10 mg A/P Narrative A/P Narrative: A: *A. fib w/RVR: improved -on Dilt/Apixaban at home -echo with EF 40-45%, grade III diastolic dysfxn amd RV systolic dysfxn and WMA *Acute hypoxic/hypercapnic respiratory failure: 2/2 CHF +/- PNA -initially on bipap now on 1L NC *Acute on likely chronic diastolic(III) CHF and RHF w/moderate MR(valvular dz): and borderline low systolic -good diuresis *suspected PNA: *Sepsis: 2/2 above, improving -tachycardia/tachypnea/leukocytosis *UTI: *Encephalopathy: Likely 2/2 above with likely underlying dementia -failed OT cognitive eval *Demand ischemia: Patient denies chest pain. trops flat line *PVD: follows with Dr. 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, poorly controlled *COPD(not on Home O2): *HTN/HLD: *Depression/anxiety: *GERD: *Obesity: BMI 32, diet/exercise lifestyle changes *Hypophosphatemia/hypokalemia/Hyponatremia: improving P: -cont oral dilt -started home torsemide and aldactone, prn IV -wean O2 as able, IS/Acapella -Monitor and replace electrolytes and trend chemistry/CBC -basal and SSI, -cont statin -Smoking cessation counseling -PT/OT -CM for placement -f/u with cardiology -ppx: Apixaban/home PPI Time Spent With Patient Time: Total time spent is greater than 50% in coordination of care (as documented) at patient's floor/unit and/or counseling patient: Subsequent: Total time with patient: 35 - 49 minutes QUALITY VTE Deep Vein Thrombosis/Pulmonary Embolism Present on Admission: No
[2022-07-24] MEDS: PANTOPRAZOLE 40 MG TABLET PO SCH (07:53)
[2022-07-24] MEDS: INSULIN GLARGINE, HUMAN 1 UNIT/0.01 ML SQ SCH (08:52)
[2022-07-24] MEDS: SPIRONOLACTONE 25 MG TABLET PO SCH (08:52)
[2022-07-24] MEDS: INSULIN LISPRO 1 UNIT/0.01 ML UNIT SQ SCH ×5 (08:52→20:26)
[2022-07-24] MEDS: CARBIDOPA/LEVODOPA 10/100 TABLET PO SCH ×2 (08:52→20:26)
[2022-07-24] MEDS: LISINOPRIL 2.5 MG TABLET PO SCH (08:53)
[2022-07-24] MEDS: ATORVASTATIN 40 MG TABLET PO SCH (08:53)
[2022-07-24] MEDS: GABAPENTIN 300 MG CAPSULE PO SCH ×3 (08:53→20:26)
[2022-07-24] MEDS: DILTIAZEM 120 MG CAP.XL.24H PO SCH (08:53)
[2022-07-24] MEDS: TORSEMIDE 10 MG TABLET PO SCH ×2 (08:53→10:42)
[2022-07-24] MEDS: APIXABAN 5 MG TABLET PO SCH ×2 (08:53→20:26)
[2022-07-24] MEDS: ESCITALOPRAM 10 MG TABLET PO SCH (08:53)
[2022-07-24] MEDS: BUDESONIDE 160 MCG INH SCH ×2 (08:54→20:27)
[2022-07-24] MEDS: FORMOTEROL 4.8 MCG INH SCH ×2 (08:54→20:27)
[2022-07-24] MEDS: [UNRECOGNIZED DRUG - OTHER] INH SCH ×2 (08:54→20:27)
[2022-07-24] MEDS: cefTRIAXone 1 GM VIAL IV SCH (09:08)
[2022-07-24] MEDS: ACETAMINOPHEN 325 MG TABLET PO PRN (20:27)
[2022-07-25] MEDS: HYDROcodone/APAP 5/325MG TABLET PO PRN ×3 (00:29→20:37)
[2022-07-25] MEDS: 0.9 % SODIUM CHLORIDE 10 ML SYRINGE IV SCH ×3 (05:28→18:40)
[2022-07-25 06:33] LABS: Basophils # (Auto) 0.09 K/mcL (0.00-0.30); Basophils % (Auto) 0.9 % (0.0-2.0); Eosinophils # (Auto) 0.48 K/mcL (0.00-0.70); Hematocrit 37.2 % (34.1-44.9); Hemoglobin 11.6 g/dL (11.2-15.7); Lymphocytes # (Auto) 2.06 K/mcL (1.50-4.80); Lymphocytes % (Auto) 21.4 % (15.5-49.0); Mean Cell Volume 91.6 fL (80.0-100.0); Mean Corpuscular HGB Conc 31.2 g/dL (31.0-36.0); Monocytes # (Auto) 1.05 K/mcL (0.10-0.90); Monocytes % (Auto) 10.9 % (1.0-12.0); Platelet Count 319 K/mcL (140-440); RBC 4.06 M/mcL (3.59-5.38); Red Cell Distribution Width 15.5 % (11.5-14.5); WBC 9.6 K/mcL (4.5-11.0)
[2022-07-25] MEDS: APIXABAN 5 MG TABLET PO SCH ×2 (07:32→20:31)
[2022-07-25] MEDS: TORSEMIDE 10 MG TABLET PO SCH ×2 (07:32)
[2022-07-25] MEDS: INSULIN GLARGINE, HUMAN 1 UNIT/0.01 ML SQ SCH (07:32)
[2022-07-25] MEDS: ESCITALOPRAM 10 MG TABLET PO SCH (07:32)
[2022-07-25] MEDS: PANTOPRAZOLE 40 MG TABLET PO SCH (07:32)
[2022-07-25] MEDS: DILTIAZEM 120 MG CAP.XL.24H PO SCH (07:32)
[2022-07-25] MEDS: INSULIN LISPRO 1 UNIT/0.01 ML UNIT SQ SCH ×4 (07:32→20:30)
[2022-07-25] MEDS: BUDESONIDE 160 MCG INH SCH ×2 (07:33→20:31)
[2022-07-25] MEDS: [UNRECOGNIZED DRUG - OTHER] INH SCH ×2 (07:33→20:31)
[2022-07-25] MEDS: ATORVASTATIN 40 MG TABLET PO SCH (07:33)
[2022-07-25] MEDS: FORMOTEROL 4.8 MCG INH SCH ×2 (07:33→20:31)
[2022-07-25] MEDS: SPIRONOLACTONE 25 MG TABLET PO SCH (07:33)
[2022-07-25] MEDS: CARBIDOPA/LEVODOPA 10/100 TABLET PO SCH ×2 (07:36→20:31)
[2022-07-25] MEDS: GABAPENTIN 300 MG CAPSULE PO SCH ×3 (07:36→20:31)
[2022-07-25] MEDS: LISINOPRIL 2.5 MG TABLET PO SCH (07:36)
--- NOTE | 2022-07-25 09:25 | Internal Med Progress Note ---
SUBJECTIVE Subjective Patient information: Note initiated : 07/25/22 at 9:23 am Service Date, if different from initiated Date: [] Patient: Candice Khan 81 y/o F admitted on 07/19/22 for Fall 1 wk ago, weakness. Chief Complaint: [FTT, UTI, AMS] Principal diagnosis: Urinary tract infection, atrial fibrillation with RVR, pneumonia Interval history: The patient was resting comfortably in her chair wearing supplemental O2. RN was present at the bedside. The patient is hard of hearing but overall is doing quite well. [facility]. Constitutional Vitals: Vital Signs Temp Pulse Resp BP Pulse Ox O2 Del Method O2 Flow Rate 98.2 F 72 22 120/74 95 Nasal Cannula 1.5 07/25/22 08:04 07/25/22 05:00 07/25/22 08:04 07/25/22 08:04 07/25/22 08:04 07/25/22 08:04 07/25/22 08:04 Period Temp Pulse Resp BP Sys/Purvis Pulse Ox O2 Del Method O2 Flow Rate Last 24 Hr 97.2 F-98.7 F 62-85 - 94-126/49-77 90-96 Nasal Cannula-Bakari al Cannula 1-2 Intake and Output 07/24/22 07/25/22 07/25/22 19:59 03:59 11:59 Intake Total 290 1086 Output Total 150 100 Balance 290 936 -100 Weight 78.67 kg Intake & Output: Intake & Output 07/24/22 07/25/22 07/25/22 19:59 03:59 11:59 Intake Total 290 1086 Output Total 150 100 Balance 290 936 -100 Weight 78.67 kg Intake: Oral 290 1086 Output: Void Amount 150 100 Other: Meal Nourishment/Supplement 1 cottage cheese,1 peach cup Percent of Meal Consumed 100% 100% Feeding Ability Assist with Tray Set Up Independent Urine Appearance Clear Urine Color Yellow Head Head exam: Present atraumatic and normal inspection Eye Eye exam: Present normal appearance ENT ENT exam: Present mucous membranes moist, normal exam and normal external ear exam Neck Neck exam: Present normal inspection Respiratory Respiratory exam: Present normal respiratory exam Cardiovascular Cardiovascular exam: Present normal rate and rhythm GI/Abdominal GI/Abdominal exam: Present normal bowel sounds Back Exam Back exam: Present normal inspection Neurological Exam Neurological exam: Present alert and oriented X3 Skin Skin exam: Present intact and warm OBJ DATA Labs 07/25/22 05:36 07/23/22 05:55 Labs: Abnormal Lab Results 07/25/22 07/25/22 07/23/22 05:36 05:36 05:55 RDW 15.5 H Immature Gran % (Auto) 0.8 H Grant # (Auto) 1.05 H Immature Gran # 0.08 H Sodium 131 L Chloride 92 L Glucose 138 H Calcium 7.9 L GGT 68 H Lactate Dehydrogenase 233 H NT-Pro-B Natriuret Pep 1202.0 H Meds: Medications Acetaminophen (Acetaminophen 325 Mg Tablet) 650 mg PO Q6HP PRN; Protocol PRN Reason: Per Pain Protocol/Fever > 101 Last Admin: 07/24/22 20:27 Dose: 650 mg Hydrocodone Bitart/Acetaminophen (Hydrocodone/Apap 5/325mg Tablet) 1 tab PO Q4H P PRN PRN Reason: PAIN LEVEL 3-6 Last Admin: 07/25/22 08:14 Dose: 1 tab Albuterol/Ipratropium (Ipratropium/Albuterol 3 Ml Ampul.Neb) 3 ml NEB Q4HP PRN PRN Reason: Shortness Of Breath Apixaban (Apixaban 5 Mg Tablet) 2.5 mg PO BID [facility] Last Admin: 07/25/22 07:32 Dose: 2.5 mg Atorvastatin Calcium (Atorvastatin 40 Mg Tablet) 80 mg PO DAILY [facility] Last Admin: 07/25/22 07:33 Dose: 80 mg Carbidopa/Levodopa (Carbidopa/Levodopa 10/100 Tablet) 1 tab PO BID [facility] Last Admin: 07/25/22 07:36 Dose: 1 tab Dextrose (Dextrose 50% 50 Ml Vial) 0 ml IV UD PRN PRN Reason: Per Sliding Scale Diagnostic Test (Pha) (Accu-Chek 1 Each Strip) 1 each FS ACHS [facility] Last Admin: 07/25/22 07:26 Dose: 1 each Diltiazem HCl (Diltiazem 120 Mg Cap.Xl.24h) 360 mg PO DAILY [facility] Last Admin: 07/25/22 07:32 Dose: 360 mg Diphenhydramine HCl (Diphenhydramine 25 Mg Capsule) 25 mg PO HSP PRN PRN Reason: Insomnia Escitalopram Oxalate (Escitalopram 10 Mg Tablet) 5 mg PO DAILY [facility] Last Admin: 07/25/22 07:32 Dose: 5 mg Gabapentin (Gabapentin 300 Mg Capsule) 600 mg PO TID [facility] Last Admin: 07/25/22 07:36 Dose: 600 mg Glucose (Dextrose 31 Gm Oral.Susp) 15 gm PO PRN PRN PRN Reason: Hypoglycemia Potassium Chloride 40 meq/ (Dextrose) 520 mls @ 130 mls/hr IV UD PRN PRN Reason: Potassium < 3 Last Infusion: 07/21/22 14:55 Dose: Infused Magnesium Sulfate (Magnesium Sulfate) 2 gm in 50 mls @ 50 mls/hr IV UD PRN PRN Reason: Magnesium </= 1.6 Last Infusion: 07/22/22 21:59 Dose: Infused Insulin Glargine (Insulin Glargine, Human 1 Unit/0.01 Ml) 10 unit SQ DAILY [facility] Last Admin: 07/25/22 07:32 Dose: 10 units Insulin Human Lispro (Insulin Lispro 1 Unit/0.01 Ml Unit) 0 unit SQ ACHS [facility]; Protocol Last Admin: 07/25/22 07:32 Dose: 6 units Lisinopril (Lisinopril 2.5 Mg Tablet) 2.5 mg PO DAILY [facility] Last Admin: 07/25/22 07:36 Dose: 2.5 mg Loperamide HCl (Loperamide 2 Mg Capsule) 2 mg PO PRN PRN PRN Reason: Diarrhea Last Admin: 07/22/22 22:26 Dose: 2 mg Metoprolol Tartrate (Metoprolol Tartrate 5 Mg/5 Ml Vial) 5 mg IV Q2HP PRN PRN Reason: Tachyarrhythmias HR>110 Ondansetron HCl (Ondansetron 4 Mg/2 Ml Vial) 4 mg IV Q4HP PRN PRN Reason: Nausea And Vomiting Last Admin: 07/24/22 11:06 Dose: 4 mg Pantoprazole Sodium (Pantoprazole 40 Mg Tablet) 40 mg PO ACB [facility] Last Admin: 07/25/22 07:32 Dose: 40 mg Budesonide 160 Mcg- Glycopyrolate 9 Mcg- Formoterol 4.8 Mcg [ Breztri Aerosphere] Inhaler 2 dose INH BID [facility] Last Admin: 07/25/22 07:33 Dose: Not Given Polyethylene Glycol (Polyethylene Glycol 3350 17 Gm Packet) 17 gm PO DAILYP PRN PRN Reason: Constipation Potassium Chloride (Potassium Chloride 20 Meq Tablet) 40 meq PO UD PRN PRN Reason: Potssium is 3-3.5 Last Admin: 07/25/22 01:08 Dose: 40 meq Potassium Chloride (Potassium Chloride 20 Meq Tablet) 40 meq PO UD PRN PRN Reason: Potassium < 3 Last Admin: 07/21/22 09:20 Dose: 40 meq Senna (Sennosides 1 Tablet) 2 tab PO DAILYP PRN PRN Reason: Constipation Last Admin: 07/21/22 19:40 Dose: 2 tab Sodium Chloride (0.9 % Sodium Chloride 10 Ml Syringe) 10 ml IV Q8 [facility] Last Admin: 07/25/22 05:28 Dose: 10 ml Spironolactone (Spironolactone 25 Mg Tablet) 25 mg PO QDAY [facility] Last Admin: 07/25/22 07:33 Dose: 25 mg Torsemide (Torsemide 10 Mg Tablet) 20 mg PO DAILY [facility] Last Admin: 07/25/22 07:32 Dose: 20 mg Torsemide (Torsemide 10 Mg Tablet) 10 mg PO DAILY [facility] Last Admin: 07/25/22 07:32 Dose: 10 mg A/P Narrative A/P Narrative: A: *A. fib w/RVR: improved -on Dilt/Apixaban at home -echo with EF 40-45%, grade III diastolic dysfxn amd RV systolic dysfxn and WMA *Acute hypoxic/hypercapnic respiratory failure: 2/2 CHF +/- PNA -initially on bipap now on 1L NC *Acute on likely chronic diastolic(III) CHF and RHF w/moderate MR(valvular dz): and borderline low systolic -good diuresis *suspected PNA: *Sepsis: 2/2 above, improving -tachycardia/tachypnea/leukocytosis *UTI: *Encephalopathy: Likely 2/2 above with likely underlying dementia -failed OT cognitive eval *Demand ischemia: Patient denies chest pain. trops flat line *PVD: follows with Dr. 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, poorly controlled *COPD(not on Home O2): *HTN/HLD: *Depression/anxiety: *GERD: *Obesity: BMI 32, diet/exercise lifestyle changes *Hypophosphatemia/hypokalemia/Hyponatremia: improving P: -cont oral dilt -started home torsemide and aldactone, prn IV -wean O2 as able, IS/Acapella -Monitor and replace electrolytes and trend chemistry/CBC -basal and SSI, -cont statin -Smoking cessation counseling -PT/OT -CM for placement -f/u with cardiology -ppx: Apixaban/home PPI Time Spent With Patient Time: Total time spent is greater than 50% in coordination of care (as documented) at patient's floor/unit and/or counseling patient: Subsequent: Total time with patient: 35 - 49 minutes QUALITY VTE Deep Vein Thrombosis/Pulmonary Embolism Present on Admission: No
[2022-07-26] MEDS: 0.9 % SODIUM CHLORIDE 10 ML SYRINGE IV SCH ×5 (04:59→21:18)
--- NOTE | 2022-07-26 06:23 | Internal Med Progress Note ---
SUBJECTIVE Subjective Patient information: Note initiated : 07/26/22 at 6:22 am Service Date, if different from initiated Date: [] Patient: Candice Khan 81 y/o F admitted on 07/19/22 for Fall 1 wk ago, weakness. Chief Complaint: [] Principal diagnosis: Urinary tract infection, atrial fibrillation with RVR, pneumonia Interval history: Patient is currently awaiting insurance auth for placement. Clinically doing well. Constitutional Vitals: Vital Signs Temp Pulse Resp BP Pulse Ox O2 Del Method O2 Flow Rate 97.8 F 75 13 134/59 92 Nasal Cannula 3 07/26/22 04:49 07/26/22 04:49 07/26/22 04:49 07/26/22 04:49 07/26/22 04:49 07/26/22 04:49 07/25/22 20:22 Period Temp Pulse Resp BP Sys/Purvis Pulse Ox O2 Del Method O2 Flow Rate Last 24 Hr 97.4 F-98.6 F 72-85 13-22 100-134/45-82 84-96 Nasal Cannula- Room Air 1-4 Intake and Output 07/25/22 07/26/22 07/26/22 19:59 03:59 11:59 Intake Total 540 120 Output Total 1300 526 Balance -760 -406 Weight 78.471 kg Intake & Output: Intake & Output 07/25/22 07/26/22 07/26/22 19:59 03:59 11:59 Intake Total 540 120 Output Total 1300 526 Balance -760 -406 Weight 78.471 kg Intake: Nourishment/Supplement quantity 240 (ml) Oral 300 120 Output: Void Amount 1300 525 # of times incontinent of urine 1 Other: Meal Dinner Peaches Percent of Meal Consumed 100% 100% Feeding Ability Independent Nourishment/Supplement name Glucerna Urine Appearance Clear Clear Urine Color Yellow Bright Yellow Urine Odor Normal Head Head exam: Present atraumatic and normal inspection Eye Eye exam: Present normal appearance ENT ENT exam: Present mucous membranes moist, normal exam and normal external ear exam Neck Neck exam: Present normal inspection Respiratory Respiratory exam: Present normal respiratory exam Cardiovascular Cardiovascular exam: Present normal rate and rhythm GI/Abdominal GI/Abdominal exam: Present normal bowel sounds Back Exam Back exam: Present normal inspection Neurological Exam Neurological exam: Present alert and oriented X3 Skin Skin exam: Present intact and warm OBJ DATA Labs 07/25/22 05:36 07/23/22 05:55 Labs: Abnormal Lab Results 07/25/22 07/25/22 07/23/22 05:36 05:36 05:55 RDW 15.5 H Immature Gran % (Auto) 0.8 H [place]aston # (Auto) 1.05 H Immature Gran # 0.08 H Sodium 131 L Chloride 92 L Glucose 138 H Calcium 7.9 L GGT 68 H Lactate Dehydrogenase 233 H NT-Pro-B Natriuret Pep 1202.0 H Meds: Medications Acetaminophen (Acetaminophen 325 Mg Tablet) 650 mg PO Q6HP PRN; Protocol PRN Reason: Per Pain Protocol/Fever > 101 Last Admin: 07/24/22 20:27 Dose: 650 mg Hydrocodone Bitart/Acetaminophen (Hydrocodone/Apap 5/325mg Tablet) 1 tab PO Q4HP PRN PRN Reason: PAIN LEVEL 3-6 Last Admin: 07/25/22 20:37 Dose: 1 tab Albuterol/Ipratropium (Ipratropium/Albuterol 3 Ml Ampul.Neb) 3 ml NEB Q4HP PRN PRN Reason: Shortness Of Breath Apixaban (Apixaban 5 Mg Tablet) 2.5 mg PO BID [facility] Last Admin: 07/25/22 20:31 Dose: 2.5 mg Atorvastatin Calcium (Atorvastatin 40 Mg Tablet) 80 mg PO DAILY [facility] Last Admin: 07/25/22 07:33 Dose: 80 mg Carbidopa/Levodopa (Carbidopa/Levodopa 10/100 Tablet) 1 tab PO BID [facility] Last Admin: 07/25/22 20:31 Dose: 1 tab Dextrose (Dextrose 50% 50 Ml Vial) 0 ml IV UD PRN PRN Reason: Per Sliding Scale Diagnostic Test (Pha) (Accu-Chek 1 Each Strip) 1 each FS ACHS [facility] Last Admin: 07/25/22 20:30 Dose: 1 each Diltiazem HCl (Diltiazem 120 Mg Cap.Xl.24h) 360 mg PO DAILY [facility] Last Admin: 07/25/22 07:32 Dose: 360 mg Diphenhydramine HCl (Diphenhydramine 25 Mg Capsule) 25 mg PO HSP PRN PRN Reason: Insomnia Escitalopram Oxalate (Escitalopram 10 Mg Tablet) 5 mg PO DAILY [facility] Last Admin: 07/25/22 07:32 Dose: 5 mg Gabapentin (Gabapentin 300 Mg Capsule) 600 mg PO TID [facility] Last Admin: 07/25/22 20:31 Dose: 600 mg Glucose (Dextrose 31 Gm Oral.Susp) 15 gm PO PRN PRN PRN Reason: Hypoglycemia Potassium Chloride 40 meq/ (Dextrose) 520 mls @ 130 mls/hr IV UD PRN PRN Reason: Potassium < 3 Last Infusion: 07/21/22 14:55 Dose: Infused Magnesium Sulfate (Magnesium Sulfate) 2 gm in 50 mls @ 50 mls/hr IV UD PRN PRN Reason: Magnesium </= 1.6 Last Infusion: 07/22/22 21:59 Dose: Infused Insulin Glargine (Insulin Glargine, Human 1 Unit/0.01 Ml) 10 unit SQ DAILY [facility] Last Admin: 07/25/22 07:32 Dose: 10 units Insulin Human Lispro (Insulin Lispro 1 Unit/0.01 Ml Unit) 0 unit SQ ACHS [facility]; Protocol Last Admin: 07/25/22 20:30 Dose: 12 units Lisinopril (Lisinopril 2.5 Mg Tablet) 2.5 mg PO DAILY [facility] Last Admin: 07/25/22 07:36 Dose: 2.5 mg Loperamide HCl (Loperamide 2 Mg Capsule) 2 mg PO PRN PRN PRN Reason: Diarrhea Last Admin: 07/22/22 22:26 Dose: 2 mg Metoprolol Tartrate (Metoprolol Tartrate 5 Mg/5 Ml Vial) 5 mg IV Q2HP PRN PRN Reason: Tachyarrhythmias HR>110 Ondansetron HCl (Ondansetron 4 Mg/2 Ml Vial) 4 mg IV Q4HP PRN PRN Reason: Nausea And Vomiting Last Admin: 07/24/22 11:06 Dose: 4 mg Pantoprazole Sodium (Pantoprazole 40 Mg Tablet) 40 mg PO ACB [facility] Last Admin: 07/25/22 07:32 Dose: 40 mg Budesonide 160 Mcg- Glycopyrolate 9 Mcg- Formoterol 4.8 Mcg [ Breztri Aerosphere] Inhaler 2 dose INH BID [facility] Last Admin: 07/25/22 20:31 Dose: Not Given Polyethylene Glycol (Polyethylene Glycol 3350 17 Gm Packet) 17 gm PO DAILYP PRN PRN Reason: Constipation Potassium Chloride (Potassium Chloride 20 Meq Tablet) 40 meq PO UD PRN PRN Reason: Potssium is 3-3.5 Last Admin: 07/25/22 01:08 Dose: 40 meq Potassium Chloride (Potassium Chloride 20 Meq Tablet) 40 meq PO UD PRN PRN Reason: Potassium < 3 Last Admin: 07/21/22 09:20 Dose: 40 meq Senna (Sennosides 1 Tablet) 2 tab PO DAILYP PRN PRN Reason: Constipation Last Admin: 07/21/22 19:40 Dose: 2 tab Sodium Chloride (0.9 % Sodium Chloride 10 Ml Syringe) 10 ml IV Q8 [facility] Last Admin: 07/26/22 05:00 Dose: 10 ml Spironolactone (Spironolactone 25 Mg Tablet) 25 mg PO QDAY [facility] Last Admin: 07/25/22 07:33 Dose: 25 mg Torsemide (Torsemide 10 Mg Tablet) 20 mg PO DAILY [facility] Last Admin: 07/25/22 07:32 Dose: 20 mg Torsemide (Torsemide 10 Mg Tablet) 10 mg PO DAILY [facility] Last Admin: 07/25/22 07:32 Dose: 10 mg A/P Narrative A/P Narrative: A: *A. fib w/RVR: improved -on Dilt/Apixaban at home -echo with EF 40-45%, grade III diastolic dysfxn amd RV systolic dysfxn and WMA *Acute hypoxic/hypercapnic respiratory failure: 2/2 CHF +/- PNA -initially on bipap now on 1L NC *Acute on likely chronic diastolic(III) CHF and RHF w/moderate MR(valvular dz): and borderline low systolic -good diuresis *suspected PNA: *Sepsis: 2/2 above, improving -tachycardia/tachypnea/leukocytosis *UTI: *Encephalopathy: Likely 2/2 above with likely underlying dementia -failed OT cognitive eval *Demand ischemia: Patient denies chest pain. trops flat line *PVD: follows with Dr. 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, poorly controlled *COPD(not on Home O2): *HTN/HLD: *Depression/anxiety: *GERD: *Obesity: BMI 32, diet/exercise lifestyle changes *Hypophosphatemia/hypokalemia/Hyponatremia: improving P: -cont oral dilt -started home torsemide and aldactone, prn IV -wean O2 as able, IS/Acapella -Monitor and replace electrolytes and trend chemistry/CBC -basal and SSI, -cont statin -Smoking cessation counseling -PT/OT -CM for placement -f/u with cardiology -ppx: Apixaban/home PPI Time Spent With Patient Time: Total time spent is greater than 50% in coordination of care (as documented) at patient's floor/unit and/or counseling patient: Subsequent: Total time with patient: 25 - 34 minutes QUALITY VTE Deep Vein Thrombosis/Pulmonary Embolism Present on Admission: No
[2022-07-26] MEDS: GABAPENTIN 300 MG CAPSULE PO SCH ×4 (07:01→21:01)
[2022-07-26] MEDS: INSULIN LISPRO 1 UNIT/0.01 ML UNIT SQ SCH ×4 (08:15→21:01)
[2022-07-26] MEDS: ATORVASTATIN 40 MG TABLET PO SCH (08:15)
[2022-07-26] MEDS: SPIRONOLACTONE 25 MG TABLET PO SCH (08:15)
[2022-07-26] MEDS: INSULIN GLARGINE, HUMAN 1 UNIT/0.01 ML SQ SCH (08:15)
[2022-07-26] MEDS: APIXABAN 5 MG TABLET PO SCH ×2 (08:16→21:00)
[2022-07-26] MEDS: PANTOPRAZOLE 40 MG TABLET PO SCH (08:16)
[2022-07-26] MEDS: TORSEMIDE 10 MG TABLET PO SCH ×2 (08:16)
[2022-07-26] MEDS: DILTIAZEM 120 MG CAP.XL.24H PO SCH (08:16)
[2022-07-26] MEDS: ESCITALOPRAM 10 MG TABLET PO SCH (08:16)
[2022-07-26] MEDS: LISINOPRIL 2.5 MG TABLET PO SCH (08:26)
[2022-07-26] MEDS: CARBIDOPA/LEVODOPA 10/100 TABLET PO SCH ×2 (08:26→21:07)
[2022-07-26] MEDS: [UNRECOGNIZED DRUG - OTHER] INH SCH ×3 (08:27→21:17)
[2022-07-26] MEDS: FORMOTEROL 4.8 MCG INH SCH ×3 (08:27→21:17)
[2022-07-26] MEDS: BUDESONIDE 160 MCG INH SCH ×3 (08:27→21:17)
[2022-07-26] MEDS: HYDROcodone/APAP 5/325MG TABLET PO PRN ×3 (08:31→21:05)
[2022-07-27] MEDS: HYDROcodone/APAP 5/325MG TABLET PO PRN ×2 (04:08→12:36)
[2022-07-27] MEDS: 0.9 % SODIUM CHLORIDE 10 ML SYRINGE IV SCH (04:15)
[2022-07-27] MEDS: PANTOPRAZOLE 40 MG TABLET PO SCH (07:42)
[2022-07-27] MEDS: INSULIN LISPRO 1 UNIT/0.01 ML UNIT SQ SCH ×2 (08:05→11:49)
[2022-07-27] MEDS: CARBIDOPA/LEVODOPA 10/100 TABLET PO SCH (09:03)
[2022-07-27] MEDS: LISINOPRIL 2.5 MG TABLET PO SCH (09:03)
[2022-07-27] MEDS: SPIRONOLACTONE 25 MG TABLET PO SCH (09:03)
[2022-07-27] MEDS: APIXABAN 5 MG TABLET PO SCH (09:03)
[2022-07-27] MEDS: TORSEMIDE 10 MG TABLET PO SCH ×2 (09:03→09:04)
[2022-07-27] MEDS: ESCITALOPRAM 10 MG TABLET PO SCH (09:03)
[2022-07-27] MEDS: ATORVASTATIN 40 MG TABLET PO SCH (09:04)
[2022-07-27] MEDS: GABAPENTIN 300 MG CAPSULE PO SCH (09:04)
[2022-07-27] MEDS: BUDESONIDE 160 MCG INH SCH (09:04)
[2022-07-27] MEDS: DILTIAZEM 120 MG CAP.XL.24H PO SCH (09:04)
[2022-07-27] MEDS: FORMOTEROL 4.8 MCG INH SCH (09:04)
[2022-07-27] MEDS: [UNRECOGNIZED DRUG - OTHER] INH SCH (09:04)
[2022-07-27] MEDS: INSULIN GLARGINE, HUMAN 1 UNIT/0.01 ML SQ SCH (09:52)
[2022-07-27] MEDS ORDERED: INSULIN GLARGINE, HUMAN 1 UNIT/0.01 ML SQ SCH (09:53)
--- NOTE | 2022-07-27 10:28 | Discharge Summary ---
Discharge Provider Provider IMPORTANT FOLLOW-UP INFORMATION FOR PCP: 1. Follow up with PCP within 1 week Patient information: Note initiated : 07/27/22 at 10:24 am Service Date, if different from initiated Date: [] Patient: Candice Khan 81 y/o F admitted on 07/19/22 for Fall 1 wk ago, weakness. Chief Complaint: [AMS] Date of admission: 07/19/22 20:48 Discharge date: 07/27/22 Primary care physician: Shonna Heck Admitting clinician: Daniel Hoyt Consults: 07/19/22 Consult to Physician [CONS] Stat Comment: Consulting Provider: Daniel Hoyt Reason For Exam: Physician to Consult 07/24/22 10:59 Consult to Physician [CONS] Routine Comment: snf referral Consulting Provider: [facility] Reason For Exam: Physician to Consult Attending physician on discharge: [facility] Shi COURSE Hospital Course Hospital course: Interval history: History of present illness: Ms. Khan is a 81 year old F Who presents the ED because she was not acting herself. Per the notes neighbor found her in her chair stating she was not acting herself. Patient did hit her head about a week ago after falling from the toilet. States that she was sitting too long and her legs became numb and when she got up she fell hitting her head. In the ED her heart rate was 130-140. Head CT showed moderate atrophy and chronic ischemic changes throughout. Patient's only complaint is that she does have a headache and some pain from the lump where she hit her head. She was confused with dates when she arrived. When I saw her she said it was 1972 but knew she was at [facility]. She knew her name and birthdate. She says she believes it was her neighbor that called. Patient denies any fever chills nausea or vomiting. She denies any chest pain or shortness of breath. She does have a cough which is new. She states she has phlegm but she is not able to cough it out. She had a mild leukocytosis of 14 7. Blood glucose was elevated 314. In the ED she was worked up and evaluated found to have a right lower lobe infiltrate on chest x-ray and treated for pneumonia. She had A. fib RVR possibly flutter. Her initial rate was 147. She also had a troponin of 0.33 and her follow-up with 0.42. She denies any chest pain and EKG nonspecific. She was put on a diltiazem drip which improved her heart rate. She was also found to have a UTI in the ED was started on treatment for that. Patient says she has not done well since her heart medication was changed by Dr. Arellano. She told her pharmacy that but they said it was the same medication. 07/20 Patient on BiPAP overnight switched to nasal cannula. Late morning she appeared to have some respiratory distress ABG shows respiratory acidosis. Placed back on BiPAP. Does have edema and does have rales as well so we will give IV Lasix and monitor urine output closely. She is on diltiazem drip and restarting p.o. diltiazem and will try to drip and transition off the IV diltiazem. She does have a cough. She denies shortness of breath currently but definitely looks a bit labored. She failed the cognitive eval and likely has underlying dementia. 07/21 Patient seen today feeling a bit better today. Mentation but more clear. She is on nasal cannula 1 L currently with good sats. Was on BiPAP overnight. Discussed with patient potential need for short stay to rehab facility but she refused but said she would consider over the next 24 hours. Hypokalemic today on laboratory. Hemoglobin A1c 10.2. Patient was diuresed yesterday. proBNP improved today. She did have some nausea at 1 point. Present cough but improving as well as shortness of breath. 07/22 Patient says she is feeling a bit better currently on 2 L but good sats and h opefully can bring those down. She does have cough but denies any shortness of breath at rest. Hyponatremia on lab work at this morning. Echo came back showing borderline reduced ejection fraction 40-45 as well as grade 3 diastolic dysfunction and moderately reduced right ventricular systolic function as well as moderate MR. 07/23 Patient no overnight event or new complaints. Now trialing on room air. Patient has occasional cough. But denies shortness of breath. She is refusing [facility]. However her children are here and believe they can convince her given that her only options as they see it are to rehab or over to [place] with son. 07/24 Patient 1 L nasal cannula. Occasional cough. No overnight event or new complaints. Sitting up in bed eating breakfast. 07/27: I took over the care of this patient 48 hours ago which point she was medically optimized for discharge and awaiting transfer to [facility] facility. Her atrial fibrillation has been well controlled. Her mental status has improved as her pneumonia and urinary tract infection of both been treated. The patient supplemental O2 requirements have come down significantly and her breathing is unlabored. She is able to speak in full sentences. Smoking cessation counseling was provided. It would be beneficial for the patient to follow-up with cardiology in outpatient setting as there were concerns for demand ischemia while she was hospitalized. Overall, when she follows up with her primary care physician, will be beneficial to have a further goals of care discussion. A/P Narrative: A: *A. fib w/RVR: improved -on Dilt/Apixaban at home -echo with EF 40-45%, grade III diastolic dysfxn amd RV systolic dysfxn and WMA *Acute hypoxic/hypercapnic respiratory failure: 2/2 CHF +/- PNA -initially on bipap now on 1L NC *Acute on likely chronic diastolic(III) CHFand RHFw/moderate MR(valvular dz): and borderline low systolic -good diuresis *suspected PNA: *Sepsis: 2/2 above, improving -tachycardia/tachypnea/leukocytosis *UTI: *Encephalopathy: Likely 2/2 above with likely underlying dementia -failed OT cognitive eval *Demand ischemia: Patient denies chest pain. trops flat line *PVD: follows with Dr. 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, poorly controlled *COPD(not on Home O2): *HTN/HLD: *Depression/anxiety: *GERD: *Obesity: BMI 32, diet/exercise lifestyle changes *Hypophosphatemia/hypokalemia/Hyponatremia: improving P: -cont oral dilt -started home torsemide and aldactone, prn IV -wean O2 as able, IS/Acapella -Monitor and replace electrolytes and trend chemistry/CBC -basal and SSI, -cont statin -Smoking cessation counseling -PT/OT -CM for placement -f/u with cardiology -ppx: Apixaban/home PPI Discharge diagnosis: Acute hypoxemic respiratory failure, pneumonia, UTI, encephalopathy Time spent discussing smoking cessation with patient: 3 to 10 minutes Time Spent with Patient Time attestation: Total time spent providing and/or coordinating discharge services: Time spent: Greater than 30 minutes EXAM Constitutional Vitals: Temp Pulse Resp BP Pulse Ox O2 Del Method O2 Flow Rate 98.3 F 86 20 130/85 95 Room Air 1 07/27/22 07:55 07/27/22 07:55 07/27/22 07:55 07/27/22 07:55 07/27/22 07:55 07/27/22 07:25 07/26/22 19:04 General appearance: average body habitus Head Head exam: Present atraumatic, normal inspection and normocephalic Eye Eye exam: Present EOMI, normal appearance and PERRL; Absent conjunctival injection ENT ENT exam: Present normal exam; Absent mucous membranes dry Neck Neck exam: Present full ROM; Absent lymphadenopathy Respiratory Respiratory exam: Present normal respiratory exam and CTAB; Absent decreased breath sounds, respiratory distress or wheezes Cardiovascular Cardiovascular exam: Present normal rate and rhythm and RRR; Absent JVD GI/Abdominal GI/Abdominal exam: Present normal bowel sounds and soft; Absent diminished bowel sounds, distended, guarding, mass, rebound or tenderness Neurological Exam Neurological exam: Present alert, CN II-XII intact and oriented X3 Psychiatric Psychiatric exam: Present normal affect and normal mood Skin Skin exam: Present intact and warm; Absent erythema, pallor, petechiae or rash Discharge Plan Patient/Caregiver Discharge Instructions Activity: increase activity as tolerated Diet: Consistent Carbohydrate Instructions: Bacterial Pneumonia (GEN), Hypoxia (GEN), Urinary Tract Infection in Older Adults (DC) Activity Restrictions/Additional Instructions: Referral to see cardiology in 1 to 2 weeks for atrial fibrillation and heart failure. Prescriptions: New lisinopril 2.5 mg Tablet 2.5 mg PO DAILY Qty: 30 0RF Continued diphenhydramine HCl 25 mg capsule 25 mg PO Q8H PRN (Reason: Insomnia) Ensure Original Liquid 1 each PO TIDWMEAL Qty: 1422 6RF escitalopram oxalate 5 mg tablet 5 mg PO QHS Qty: 90 1RF blood-glucose meter [True Metrix Glucose Meter] Misc See Rx Instructions .ROUTE .COMPLEX Qty: 1 3RF Dose Instruction: TEST four times a day Rx Instructions: TEST four times a day (DME) pen needle, diabetic [Comfort EZ Pen [place]] 31 gauge x 5/16" needle See Rx Instructions .ROUTE .MEDSUPPLY Qty: 1200 3RF Rx Instructions: Use to inject Fiasp and Lantus True Metrix Glucose Test Strip Strip See Rx Instructions .ROUTE .COMPLEX Qty: 300 3RF Dose Instruction: use 1 TEST STRIP to TEST BLOOD SUGAR four times a day Rx Instructions: use 1 TEST STRIP to TEST BLOOD SUGAR four times a day insulin aspart (niacinamide) 100 unit/mL (3 mL) insulin pen 14 unit SUB-Q .COMPLEX MDD 80 units Qty: 15 3RF Rx Instructions: 14 units subcut ; ondansetron HCl 4 mg tablet See Rx Instructions .ROUTE .COMPLEX Qty: 30 1RF Dose Instruction: TAKE ONE TABLET BY MOUTH NEEDED FOR NAUSEA, MAX 2/DAY Rx Instructions: TAKE ONE TABLET BY MOUTH NEEDED FOR NAUSEA, MAX 2/DAY Eliquis 2.5 mg tablet 2.5 mg PO BID Qty: 180 3RF potassium chloride [Klor-Con M20] 20 mEq tablet,ER particles/crystals 20 meq PO BID Qty: 180 1RF gabapentin 600 mg tablet See Rx Instructions .ROUTE .COMPLEX Qty: 90 3RF Dose Instruction: take 1 tablet by mouth three times a day Rx Instructions: take 1 tablet by mouth three times a day carbidopa-levodopa 10-100 mg tablet See Rx Instructions .ROUTE .COMPLEX Qty: 180 1RF Dose Instruction: take 1 tablet by mouth twice a day Rx Instructions: take 1 tablet by mouth twice a day albuterol sulfate 90 mcg/actuation HFA aerosol inhaler 2 puff INHALATION QID PRN (Reason: shortness of breath or wheezing) Qty: 18 3RF dapagliflozin 5 mg tablet 5 mg PO QAM Qty: 90 3RF spironolactone 25 mg tablet 25 mg PO QDAY Qty: 90 0RF atorvastatin [Lipitor] 80 mg tablet 80 mg PO QDAY Qty: 90 1RF diltiazem HCl 360 mg capsule,extended release 24 hr 360 mg PO QAM Qty: 30 4RF torsemide 10 mg tablet 10 mg PO .3 a day Qty: 90 3RF Rx Instructions: take 20mg in morning, and 10mg around noon Breztri Aerosphere 160-9-4.8 mcg/actuation HFA aerosol inhaler 2 inh inhalation QAM AND QPM Qty: 10.7 5RF pantoprazole 40 mg tablet,delayed release (DR/EC) 40 mg PO QDAY Farxiga 5 mg tablet 5 mg PO QAM hydrocodone-acetaminophen 7.5-325 mg tablet 1 tab PO Q4-6H PRN (Reason: pain) Qty: 20 0RF Rx Instructions: Can fill can fill 07/28/22 No Action insulin glargine [Basaglar KwikPen U-100 Insulin] 100 unit/mL (3 mL) insulin pen 32 unit subcut BID Follow Up Plan Follow up with: Mp Bauman [Physician] - 08/15/22 9:00 am Shonna Heck ARNP [Primary Care Provider] - Patient Disposition: Xfer SNF Prognosis: Fair Rehab Potential: Fair I certify that the patient requires SNF services: Yes Overall status at discharge: patient is progressing back to baseline Discharge Orders: Discharge Order (Routine); Ordered 07/27/22 Ordered By: Donaldo LUNDY VTE Deep Vein Thrombosis/Pulmonary Embolism Present on Admission: No
== END 2022-07-27 13:30 | DRG 871 ==
LOC: ED 11:20 → ICU 20:48
PROVIDERS: ADMIT Internal Medicine; ATTEND Student in an Organized Health Care Education/Training Program

== ENCOUNTER 2022-08-28 14:37 | Inpatient (IN) ==
--- NOTE | 2022-08-28 15:11 | Emergency Department Note ---
HPI General Chief complaint: Urogenital-Female Stated complaint: UTI Time Seen by Provider: 08/28/22 15:05 Source: patient Mode of arrival: wheelchair History of Present Illness HPI Narrative: Narrative: Patient is an 81-year-old female with a history of type 2 diabetes, hyperlipidemia, hypertension, peripheral vascular disease, history of AAA repair, CHF, CAD, and COPD who presents to the emergency department due to concern for JONES and hyperkalemia. Patient at this time endorses pain with urination, although she has difficulty describing exactly how this pain feels. She does state that it is in the area of the urethra and that she has it when she urinates. She also endorses suprapubic pain and bilateral flank pain without further radiation. She denies any other new or worsened symptoms. Related Data Home Medications Medication Instructions Recorded Confirmed diphenhydramine HCl 25 mg capsule 25 mg PO Q8H PRN Insomnia 04/27/20 07/19/22 dapagliflozin 5 mg tablet (Farxiga) 5 mg PO QAM 07/21/22 07/21/22 pantoprazole 40 mg tablet,delayed 40 mg PO QDAY 07/21/22 07/21/22 release insulin glargine 100 unit/mL (3 32 unit subcut BID 07/26/22 07/26/22 mL) subcutaneous pen (Basaglar KwikPen U-100 Insulin) Previous Rx's Medication Instructions Recorded food supplemt, lactose-reduced 1 each PO TIDWMEAL #1,422 mL 05/10/20 (Ensure Original oral liquid) escitalopram oxalate 5 mg tablet 5 mg PO QHS #90 tabs 08/19/20 blood-glucose meter (True Metrix See Rx Instructions .Route 07/08/21 Glucose Meter) .COMPLEX #1 ea pen needle, diabetic 31 gauge x #1,200 ea 11/18/21 5/16" (Comfort EZ Pen Mullan) blood sugar diagnostic (True See Rx Instructions .Route 12/12/21 Metrix Glucose Test Strip) .COMPLEX Type 2 diabetes on insulin therapy #300 strips insulin aspart 14 unit subcut .COMPLEX #15 mL 12/27/21 (niacinamide)(U-100) 100 unit/mL(3 mL) subcutaneous pen (Fiasp FlexTouch U-100 Insulin) ondansetron HCl 4 mg tablet See Rx Instructions .Route 02/07/22 .COMPLEX #30 tabs apixaban 2.5 mg tablet (Eliquis) 2.5 mg PO BID #180 tabs 02/15/22 potassium chloride 20 mEq 20 meq PO BID #180 tabs 03/16/22 tablet,extended release(part/cryst) (Klor-Con M) gabapentin 600 mg tablet See Rx Instructions .Route 05/22/22 .COMPLEX #90 tabs carbidopa 10 mg-levodopa 100 mg See Rx Instructions .Route 05/29/22 tablet .COMPLEX #180 tabs albuterol sulfate 90 mcg/actuation 2 puff inhalation QID PRN 06/16/22 aerosol inhaler shortness of breath or wheezing #18 grams budesonide 160 mcg-glycopyr 9 2 inh inhalation QAM AND QPM #10.7 07/13/22 mcg-formot 4.8 mcg/actuation HFA grams inhaler (Breztri Aerosphere) dapagliflozin 5 mg tablet 5 mg PO QAM #90 tabs 07/17/22 spironolactone 25 mg tablet 25 mg PO QDAY #90 tabs 07/19/22 lisinopril 2.5 mg tablet 2.5 mg PO DAILY #30 tabs 07/23/22 hydrocodone 7.5 mg-acetaminophen 1 tab PO Q4-6H PRN pain #20 tabs 07/27/22 325 mg tablet torsemide 10 mg tablet 10 mg PO .3 a day #90 tabs 07/31/22 atorvastatin 80 mg tablet (Lipitor) 80 mg PO QDAY #90 tabs 08/07/22 diltiazem HCl 360 mg capsule,24 360 mg PO QAM #30 caps 08/15/22 hr,extended release Allergies Allergy/AdvReac Type Severity Reaction Status Date / Time Sulfa (Sulfonamide Allergy Unknown Unknown Verified 08/28/22 14:45 Antibiotics) losartan AdvReac Intermediate swelling Verified 08/28/22 14:45 in legs metoprolol AdvReac Intermediate Weakness, Verified 08/28/22 14:45 dizzy, no appetite. nystatin AdvReac Intermediate states Verified 08/28/22 14:45 falls when on it. Review of Systems ROS ROS Narrative: Narrative: Constitutional: Denies fever or weakness Eyes: Denies eye pain or vision change ENT ED: Denies throat pain or rhinorrhea Cardiovascular: Denies chest pain or edema Respiratory: Denies shortness of breath or cough Gastrointestinal: Reports abdominal pain (Suprapubic); Denies nausea, vomiting, diarrhea, constipation, hematochezia or melena Genitourinary: Reports dysuria and frequency Musculoskeletal: Reports back pain (Bilateral flank); Denies myalgia Integumentary: Denies rash or lesions Neurological: Denies headache, weakness, numbness, confusion, abnormal gait or dizziness [facility] Narrative Patient History Narrative: Narrative: Medical/Surgical/Family History All Active Problems (Updated 08/28/22 @ 19:01 by Kelvin Licea MD) Pneumonia of right lower lobe due to infectious organism (Acute) Sepsis (Acute) Dehydration (Acute) Atrial fibrillation with rapid ventricular response (Acute) Elevated troponin I level (Acute) Acute UTI (Acute) Acute pyelonephritis (Acute) JONES (acute kidney injury) (Acute) Contusion of head (Acute) Risk for falls (Acute) Edema (Acute) Panic attack (Acute) Encounter for chronic pain management (Acute) 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) Type 2 diabetes mellitus with hyperglycemia (Acute) Chest wall contusion (Acute) Non-compliant patient (Acute) UTI (urinary tract infection) (Acute) Irene infection (Acute) Hypokalemia (Acute) Eczema (Acute) Atrial fibrillation (Acute) Diabetes mellitus type 2, uncontrolled, with complications (Acute) History of esophagogastroduodenoscopy (EGD) (Chronic 01/13/20) History of colonoscopy (Chronic 12/14/18) History of colposcopy (Chronic ~1996) History of shoulder surgery (Chronic ~12/2016) History of left knee replacement (Chronic) History of hernia surgery (Chronic) History of AAA (abdominal aortic aneurysm) repair (Chronic) History of cholecystectomy (Chronic) Hyperlipidemia (Chronic) Hypertension (Chronic) Menopausal symptom (Chronic) Vitamin D deficiency (Chronic) Back pain (Chronic) Insomnia (Chronic) PVD (peripheral vascular disease) (Chronic) Knee pain (Chronic) Lumbar radiculopathy (Chronic) Anxiety (Chronic) Fatigue (Chronic) Allergic rhinitis (Chronic) Depression (Chronic) Vertigo (Chronic) Tobacco user (Chronic) GERD (gastroesophageal reflux disease) (Chronic) Diabetes mellitus (Chronic) Encounter for therapeutic drug level monitoring (Chronic) Hypokalemia (Chronic) Unsteady gait (Chronic) Essential tremor (Chronic) CHF (congestive heart failure) (Chronic) History of abdominal aortic aneurysm (AAA) (Chronic) CAD (coronary artery disease) (Chronic) Pulmonary nodule (Chronic) Peripheral edema (Chronic) Diabetic peripheral neuropathy (Chronic) Ischemic colitis (Chronic) COPD (chronic obstructive pulmonary disease) (Chronic) Weakness (Chronic) Thoracic back pain (Chronic) Medical History (Updated 08/28/22 @ 19:01 by Kelvin Licea MD) Allergic rhinitis Anxiety Back pain CAD (coronary artery disease) CHF (congestive heart failure) COPD (chronic obstructive pulmonary disease) Depression Diabetes mellitus Diabetic peripheral neuropathy Encounter for therapeutic drug level monitoring Essential tremor Fatigue GERD (gastroesophageal reflux disease) History of abdominal aortic aneurysm (AAA) Hyperlipidemia Hypertension Hypokalemia Insomnia Ischemic colitis Knee pain Lumbar radiculopathy Menopausal symptom Peripheral edema Pulmonary nodule PVD (peripheral vascular disease) Thoracic back pain Tobacco user Unsteady gait Vertigo Vitamin D deficiency Weakness Surgical History History of AAA (abdominal aortic aneurysm) repair History of cholecystectomy History of colonoscopy (12/14/18) Edwardo Sanchez History of colposcopy (~1996) History of esophagogastroduodenoscopy (EGD) (01/13/20) History of hernia surgery x 2 History of left knee replacement after fall and fracture leg History of shoulder surgery (~12/2016) following arm fracture Family History Other Unknown family medical history Social History Smoking Status: Current every day smoker Alcohol Intake Frequency: does not drink Substance Use: does not use Exam Narrative Narrative: Narrative: General General appearance: Present alert and in no apparent distress; Absent anxious, appears intoxicated or sleepy Head Head: Present atraumatic and normocephalic Eye Eye: Present EOMI; Absent scleral icterus or nystagmus ENT ENT: Present mucous membranes moist; Absent nasal congestion Neck Neck: Present full ROM and trachea midline Chest Chest: Present normal inspection and symmetric chest wall rise Respiratory Respiratory: Present normal lung sounds bilaterally; Absent respiratory distress, rales/crackles, wheezes, stridor or accessory muscle use Cardiovascular Cardiovascular: Present regular rate, normal rhythm and normal heart sounds Adbominal Abdominal: Present soft and normal bowel sounds; Absent distention, tenderness, guarding, rebound or rigidity Extremities Extremities: Present normal inspection and full ROM Back Back: Present normal inspection, full ROM, CVA tenderness (R) and CVA tenderness (L); Absent tenderness Neurological Neurological: Present alert and oriented X3 Psychiatric Psychiatric: Present normal affect and normal mood Skin Skin: Present warm (WNL), dry and normal color Course Vital Signs Vital signs: Vital Signs Temperature 97.7 F 08/28/22 14:40 Pulse Rate 86 08/28/22 14:40 Respiratory Rate 18 08/28/22 14:40 Blood Pressure 108/61 08/28/22 14:40 Pulse Oximetry (%) 99 08/28/22 14:40 Oxygen Delivery Method Room Air 08/28/22 14:40 Temperature 97.7 F 08/28/22 14:40 Pulse Rate 86 08/28/22 14:40 Respiratory Rate 18 08/28/22 14:40 Blood Pressure 108/61 08/28/22 14:40 Pulse Oximetry (%) 99 08/28/22 14:40 Oxygen Delivery Method Room Air 08/28/22 14:40 [facility] MDM Narrative Medical decision making narrative: Narrative: Patient is an 84-year-old male with a history of A-fib, CHF, right lung mass, hypertension, hyperlipidemia, COPD, and prediabetes who presents to the emergency department due to feeling off. Differential diagnosis for patient's symptoms include UTI with pyelonephritis. There is concern for potential JONES given description given by life care provider. There is also concern for failure of outpatient therapy given previous antibiotic use for a UTI and continued UTI symptoms. Patient has a urinalysis consistent with a UTI at this time, and has a creatinine of 2.1 elevated from 1.0 previously. She has been given fluids and a dose of ceftriaxone. I have spoken to Dr. Case who is agreed to see and evaluate patient for admission. Lab Data 08/28/22 15:40 Labs: Lab Results 08/28/22 08/28/22 08/28/22 Range/Units 15:40 15:40 15:42 WBC 12.8 H (4.5-11.0) K/mcL RBC 4.58 (3.59-5.38) M/mcL Hgb 13.0 (11.2-15.7) g/dL Hct 39.1 (34.1-44.9) % POC Hct 42.0 (36-48) MCV 85.4 (80.0-100.0) fL MCH 28.4 (26.0-34.0) pg MCHC 33.2 (31.0-36.0) g/dL RDW 17.2 H (11.5-14.5) % Plt Count 323 (140-440) K/mcL MPV 10.2 (8.8-12.5) fL Immature Gran % (Auto) 0.7 H (0.0-0.5) % Neut % (Auto) 77.0 (38.0-78.0) % Lymph % (Auto) 12.2 L (15.5-49.0) % Sherman % (Auto) 7.8 (1.0-12.0) % Eos % (Auto) 1.8 (0.0-7.0) % Baso % (Auto) 0.5 (0.0-2.0) % Lymph # (Auto) 1.56 (1.50-4.80) K/mcL Sherman # (Auto) 0.99 H (0.10-0.90) K/mcL Eos # (Auto) 0.23 (0.00-0.70) K/mcL Baso # (Auto) 0.07 (0.00-0.30) K/mcL Immature Gran # 0.09 H (0.00-0.05) K/mcl Absolute Neutrophils 9.82 H (1.80-8.00) K/mcL POC Sodium 124 L (133-145) POC Potassium 5.5 H (3.3-5.1) POC Chloride 96 (96-108) POC Total CO2 21.0 L (22-30) POC BUN 67 H (6-20) POC Creatinine 2.1 H (0.6-1.2) POC Glucose 278 H (70-105) POC WB Ioniz Calcium 1.16 (1.16-1.32) Total Bilirubin 0.3 (0.1-1.0) mg/dL Direct Bilirubin < 0.2 (0-0.3) mg/dL AST 8 (<32) U/L ALT 16 (<40) U/L Alkaline Phosphatase 130 H (39-117) U/L Total Protein 7.1 (5.9-8.4) gm/dL Albumin 4.0 (3.2-5.2) gm/dL Globulin 3.1 (2.2-3.7) gm/dL Lipase 34 (7-60) U/L Urine Color Urine Appearance (Clear) Urine pH (5.0-9.0) Ur Specific Theresa (1.000-1.035) Urine Protein (Negative) mg/dL Urine Glucose (UA) (Negative) mg/dL Urine Ketones (Negative) mg/dL Urine Occult Blood (Negative) mg/dL Urine Nitrate (Negative) Urine Bilirubin (Negative) mg/dL Urine Urobilinogen mg/dL Ur Leukocyte Esterase (Negative) /uL Urine RBC (0-3) /hpf Urine WBC (0-4) /hpf Ur Squamous Epith Cells (0-4) /hpf Urine Bacteria (0) /hpf Urine Yeast (Budding) (None) /hpf Ur Culture Indicated? 08/28/22 Range/Units 15:50 WBC (4.5-11.0) K/mcL RBC (3.59-5.38) M/mcL Hgb (11.2-15.7) g/dL Hct (34.1-44.9) % POC Hct (36-48) MCV (80.0-100.0) fL MCH (26.0-34.0) pg MCHC (31.0-36.0) g/dL RDW (11.5-14.5) % Plt Count (140-440) K/mcL MPV (8.8-12.5) fL Immature Gran % (Auto) (0.0-0.5) % Neut % (Auto) (38.0-78.0) % Lymph % (Auto) (15.5-49.0) % Sherman % (Auto) (1.0-12.0) % Eos % (Auto) (0.0-7.0) % Baso % (Auto) (0.0-2.0) % Lymph # (Auto) (1.50-4.80) K/mcL Sherman # (Auto) (0.10-0.90) K/mcL Eos # (Auto) (0.00-0.70) K/mcL Baso # (Auto) (0.00-0.30) K/mcL Immature Gran # (0.00-0.05) K/mcl Absolute Neutrophils (1.80-8.00) K/mcL POC Sodium (133-145) POC Potassium (3.3-5.1) POC Chloride (96-108) POC Total CO2 (22-30) POC BUN (6-20) POC Creatinine (0.6-1.2) POC Glucose (70-105) POC WB Ioniz Calcium (1.16-1.32) Total Bilirubin (0.1-1.0) mg/dL Direct Bilirubin (0-0.3) mg/dL AST (<32) U/L ALT (<40) U/L Alkaline Phosphatase (39-117) U/L Total Protein (5.9-8.4) gm/dL Albumin (3.2-5.2) gm/dL Globulin (2.2-3.7) gm/dL Lipase (7-60) U/L Urine Color Yellow Urine Appearance Cloudy A (Clear) Urine pH 5.0 (5.0-9.0) Ur Specific Theresa 1.013 (1.000-1.035) Urine Protein Negative (Negative) mg/dL Urine Glucose (UA) >=500 A (Negative) mg/dL Urine Ketones Negative (Negative) mg/dL Urine Occult Blood Negative (Negative) mg/dL Urine Nitrate Negative (Negative) Urine Bilirubin Negative (Negative) mg/dL Urine Urobilinogen Negative mg/dL Ur Leukocyte Esterase 500 A (Negative) /uL Urine RBC 0 (0-3) /hpf Urine WBC > 182 H (0-4) /hpf Ur Squamous Epith Cells 4 (0-4) /hpf Urine Bacteria Few A (0) /hpf Urine Yeast (Budding) Many A (None) /hpf Ur Culture Indicated? 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: No Clinical Impression: Acute pyelonephritis, JONES (acute kidney injury) Patient Disposition: Home, Self-Care Follow up with: Noe Villatoro DO [Primary Care Provider] - Prescriptions: No Action diphenhydramine HCl 25 mg capsule 25 mg PO Q8H PRN (Reason: Insomnia) Ensure Original Liquid 1 each PO TIDWMEAL Qty: 1422 6RF escitalopram oxalate 5 mg tablet 5 mg PO QHS Qty: 90 1RF blood-glucose meter [True Metrix Glucose Meter] Misc See Rx Instructions .ROUTE .COMPLEX Qty: 1 3RF Dose Instruction: TEST four times a day Rx Instructions: TEST four times a day (DME) pen needle, diabetic [Comfort EZ Pen Mullan] 31 gauge x 5/16" needle See Rx Instructions .ROUTE .MEDSUPPLY Qty: 1200 3RF Rx Instructions: Use to inject Fiasp and Lantus True Metrix Glucose Test Strip Strip See Rx Instructions .ROUTE .COMPLEX Qty: 300 3RF Dose Instruction: use 1 TEST STRIP to TEST BLOOD SUGAR four times a day Rx Instructions: use 1 TEST STRIP to TEST BLOOD SUGAR four times a day insulin aspart (niacinamide) 100 unit/mL (3 mL) insulin pen 14 unit SUB-Q .COMPLEX MDD 80 units Qty: 15 3RF Rx Instructions: 14 units subcut ; ondansetron HCl 4 mg tablet See Rx Instructions .ROUTE .COMPLEX Qty: 30 1RF Dose Instruction: TAKE ONE TABLET BY MOUTH NEEDED FOR NAUSEA, MAX 2/DAY Rx Instructions: TAKE ONE TABLET BY MOUTH NEEDED FOR NAUSEA, MAX 2/DAY Eliquis 2.5 mg tablet 2.5 mg PO BID Qty: 180 3RF potassium chloride [Klor-Con M20] 20 mEq tablet,ER particles/crystals 20 meq PO BID Qty: 180 1RF gabapentin 600 mg tablet See Rx Instructions .ROUTE .COMPLEX Qty: 90 3RF Dose Instruction: take 1 tablet by mouth three times a day Rx Instructions: take 1 tablet by mouth three times a day carbidopa-levodopa 10-100 mg tablet See Rx Instructions .ROUTE .COMPLEX Qty: 180 1RF Dose Instruction: take 1 tablet by mouth twice a day Rx Instructions: take 1 tablet by mouth twice a day albuterol sulfate 90 mcg/actuation HFA aerosol inhaler 2 puff INHALATION QID PRN (Reason: shortness of breath or wheezing) Qty: 18 3RF dapagliflozin 5 mg tablet 5 mg PO QAM Qty: 90 3RF spironolactone 25 mg tablet 25 mg PO QDAY Qty: 90 0RF torsemide 10 mg tablet 10 mg PO .3 a day Qty: 90 3RF Rx Instructions: take 20mg in morning, and 10mg around noon atorvastatin [Lipitor] 80 mg tablet 80 mg PO QDAY Qty: 90 1RF diltiazem HCl 360 mg capsule,extended release 24 hr 360 mg PO QAM Qty: 30 4RF Breztri Aerosphere 160-9-4.8 mcg/actuation HFA aerosol inhaler 2 inh inhalation QAM AND QPM Qty: 10.7 5RF pantoprazole 40 mg tablet,delayed release (DR/EC) 40 mg PO QDAY Farxiga 5 mg tablet 5 mg PO QAM lisinopril 2.5 mg Tablet 2.5 mg PO DAILY Qty: 30 0RF insulin glargine [Basaglar KwikPen U-100 Insulin] 100 unit/mL (3 mL) insulin pen 32 unit subcut BID hydrocodone-acetaminophen 7.5-325 mg tablet 1 tab PO Q4-6H PRN (Reason: pain) Qty: 20 0RF Rx Instructions: Can fill can fill 07/28/22
[2022-08-28 15:47] LABS: POC Calcium, Ionized 1.16 (1.16-1.32); POC Creatinine 2.1 (0.6-1.2); POC Potassium 5.5 (3.3-5.1)
[2022-08-28] MEDS ORDERED: 0.9 % SODIUM CHLORIDE 500 ML IV ONE ×3 (16:02→18:22)
[2022-08-28 16:42] LABS: Basophils # (Auto) 0.07 K/mcL (0.00-0.30); Basophils % (Auto) 0.5 % (0.0-2.0); Eosinophils # (Auto) 0.23 K/mcL (0.00-0.70); Eosinophils % (Auto) 1.8 % (0.0-7.0); Hematocrit 39.1 % (34.1-44.9); Lymphocytes # (Auto) 1.56 K/mcL (1.50-4.80); Lymphocytes % (Auto) 12.2 % (15.5-49.0); Mean Cell Volume 85.4 fL (80.0-100.0); Mean Corpuscular HGB Conc 33.2 g/dL (31.0-36.0); Mean Platelet Volume 10.2 fL (8.8-12.5); Monocytes # (Auto) 0.99 K/mcL (0.10-0.90); Monocytes % (Auto) 7.8 % (1.0-12.0); Platelet Count 323 K/mcL (140-440); RBC 4.58 M/mcL (3.59-5.38); Red Cell Distribution Width 17.2 % (11.5-14.5); WBC 12.8 K/mcL (4.5-11.0)
[2022-08-28 16:48] LABS: Appearance,Urine CLOUDY (Clear); Bacteria,Urine FEW /hpf (0); Bilirubin,Urine Negative (Negative); Color,Urine YELLOW; Culture Indicated,Urine yes; Glucose,Urine (UA) >=500 mg/dL (Negative); Ketones,Urine Negative (Negative); Leukocyte Esterase,Urine 500 /uL (Negative); Nitrate,Urine Negative (Negative); Protein,Urine Negative (Negative); Specific Gravity,Urine 1.013 (1.000-1.035); Urine Blood Negative (Negative); Urine Budding Yeast MANY /hpf; Urine RBC 0 /hpf (0-3); Urine Squamous Epithelial Cell 4 /hpf (0-4); Urine WBC > 182 /hpf (0-4); Urobilinogen,Urine Negative
[2022-08-28 17:07] LABS: ALT/SGPT 16 U/L (<40); AST/SGOT 8 U/L (<32); Alkaline Phosphatase 130 U/L (39-117); Bilirubin,Direct < 0.2 mg/dL (0-0.3); Bilirubin,Total 0.3 mg/dL (0.1-1.0); Globulin 3.1 gm/dL (2.2-3.7)
[2022-08-28] MEDS ORDERED: cefTRIAXone 1 GM VIAL IV ONE (18:21)
--- NOTE | 2022-08-28 20:23 | Internal Med History&Physical ---
HPI History of Present Illness Patient information: Note initiated : 08/28/22 at 8:23 pm Service Date, if different from initiated Date: [] Patient: Candice Khan a 81 y/o F admitted on for UTI. Chief Complaint: [] History of present illness: Ms. Khan is a 81 year old F with peristent afib, IDDM, HTN, HLD, PVD, HFpEF. Pt sent from SNF for JONES and UTI. She was reportedly found to have UTI at SNF treated with PO cipro but patient worsened. adn she was sent to the ED for further evaluation and management. Workup in the ED notable for Cr 2.1, most recently normal and positive UA. Pt was given IVF and ceftriaxone and admission requested. Urine Cx was obtained and is pending. Constitutional Constitutional: Present as per HPI EENT Eyes: Present as per HPI Cardiovascular Cardiovascular: Absent chest pain at rest, chest pain with activity, diaphoresis, dyspnea or edema Respiratory Respiratory: Present as per HPI; Absent cough or dyspnea Gastrointestinal Gastrointestinal: Present as per HPI Neurological Neurological: Present as per HPI PFSH PFSH All Active Problems (Updated 08/28/22 @ 19:01 by Kelvin Licea MD) Pneumonia of right lower lobe due to infectious organism (Acute) Sepsis (Acute) Dehydration (Acute) Atrial fibrillation with rapid ventricular response (Acute) Elevated troponin I level (Acute) Acute UTI (Acute) Acute pyelonephritis (Acute) JONES (acute kidney injury) (Acute) Contusion of head (Acute) Risk for falls (Acute) Edema (Acute) Panic attack (Acute) Encounter for chronic pain management (Acute) longterm current use of insulin (Acute) Type 2 diabetes mellitus with hyperglycemia (Acute) Chest wall contusion (Acute) Non-compliant patient (Acute) UTI (urinary tract infection) (Acute) Irene infection (Acute) Hypokalemia (Acute) Eczema (Acute) Atrial fibrillation (Acute) Diabetes mellitus type 2, uncontrolled, with complications (Acute) History of esophagogastroduodenoscopy (EGD) (Chronic 01/13/20) History of colonoscopy (Chronic 12/14/18) History of colposcopy (Chronic ~1996) History of shoulder surgery (Chronic ~12/2016) History of left knee replacement (Chronic) History of hernia surgery (Chronic) History of AAA (abdominal aortic aneurysm) repair (Chronic) History of cholecystectomy (Chronic) Hyperlipidemia (Chronic) Hypertension (Chronic) Menopausal symptom (Chronic) Vitamin D deficiency (Chronic) Back pain (Chronic) Insomnia (Chronic) PVD (peripheral vascular disease) (Chronic) Knee pain (Chronic) Lumbar radiculopathy (Chronic) Anxiety (Chronic) Fatigue (Chronic) Allergic rhinitis (Chronic) Depression (Chronic) Vertigo (Chronic) Tobacco user (Chronic) GERD (gastroesophageal reflux disease) (Chronic) Diabetes mellitus (Chronic) Encounter for therapeutic drug level monitoring (Chronic) Hypokalemia (Chronic) Unsteady gait (Chronic) Essential tremor (Chronic) CHF (congestive heart failure) (Chronic) History of abdominal aortic aneurysm (AAA) (Chronic) CAD (coronary artery disease) (Chronic) Pulmonary nodule (Chronic) Peripheral edema (Chronic) Diabetic peripheral neuropathy (Chronic) Ischemic colitis (Chronic) COPD (chronic obstructive pulmonary disease) (Chronic) Weakness (Chronic) Thoracic back pain (Chronic) Medical History (Updated 08/28/22 @ 19:01 by Kelvin Licea MD) Allergic rhinitis Anxiety Back pain CAD (coronary artery disease) CHF (congestive heart failure) COPD (chronic obstructive pulmonary disease) Depression Diabetes mellitus Diabetic peripheral neuropathy Encounter for therapeutic drug level monitoring Essential tremor Fatigue GERD (gastroesophageal reflux disease) History of abdominal aortic aneurysm (AAA) Hyperlipidemia Hypertension Hypokalemia Insomnia Ischemic colitis Knee pain Lumbar radiculopathy Menopausal symptom Peripheral edema Pulmonary nodule PVD (peripheral vascular disease) Thoracic back pain Tobacco user Unsteady gait Vertigo Vitamin D deficiency Weakness Surgical History History of AAA (abdominal aortic aneurysm) repair History of cholecystectomy History of colonoscopy (12/14/18) Edwardo Sanchez History of colposcopy (~1996) History of esophagogastroduodenoscopy (EGD) (01/13/20) History of hernia surgery x 2 History of left knee replacement after fall and fracture leg History of shoulder surgery (~12/2016) following arm fracture Family History Other Unknown family medical history Social History household members: alone marital status: smoking status: Current every day smoker counseling given: patient declined alcohol intake frequency: does not drink substance use type: does not use MEDS/ALLERGIES Home Medications and Allergies Home Medications Medication Instructions Recorded Confirmed Type diphenhydramine HCl 25 mg capsule 25 mg PO Q8H PRN Insomnia 04/27/20 08/28/22 History food supplemt, lactose-reduced 1 each PO TIDWMEAL #1,422 mL 05/10/20 08/28/22 Rx (Ensure Original oral liquid) escitalopram oxalate 5 mg tablet 5 mg PO QHS #90 tabs 08/19/20 08/28/22 Rx blood-glucose meter (True Metrix See Rx Instructions .Route 07/08/21 08/28/22 Rx Glucose Meter) .COMPLEX #1 ea pen needle, diabetic 31 gauge x #1,200 ea 11/18/21 08/28/22 Rx 5/16" (Comfort EZ Pen [place]) blood sugar diagnostic (True See Rx Instructions .Route 12/12/21 08/28/22 Rx Metrix Glucose Test Strip) .COMPLEX Type 2 diabetes on insulin therapy #300 strips ondansetron HCl 4 mg tablet See Rx Instructions .Route 02/07/22 08/28/22 Rx .COMPLEX #30 tabs apixaban 2.5 mg tablet (Eliquis) 2.5 mg PO BID #180 tabs 02/15/22 08/28/22 Rx potassium chloride 20 mEq 20 meq PO BID #180 tabs 03/16/22 08/28/22 Rx tablet,extended release(part/cryst) (Klor-Con M) gabapentin 600 mg tablet See Rx Instructions .Route 05/22/22 08/28/22 Rx .COMPLEX #90 tabs carbidopa 10 mg-levodopa 100 mg See Rx Instructions .Route 05/29/22 08/28/22 Rx tablet .COMPLEX #180 tabs albuterol sulfate 90 mcg/actuation 2 puff inhalation QID PRN 06/16/22 08/28/22 Rx aerosol inhaler shortness of breath or wheezing #18 grams budesonide 160 mcg-glycopyr 9 2 inh inhalation QAM AND QPM #10.7 07/13/22 08/28/22 Rx mcg-formot 4.8 mcg/actuation HFA grams inhaler (Breztri Aerosphere) dapagliflozin 5 mg tablet 5 mg PO QAM #90 tabs 07/17/22 08/28/22 Rx spironolactone 25 mg tablet 25 mg PO QDAY #90 tabs 07/19/22 08/28/22 Rx pantoprazole 40 mg tablet,delayed 40 mg PO QDAY 07/21/22 08/28/22 History release lisinopril 2.5 mg tablet 2.5 mg PO DAILY #30 tabs 07/23/22 08/28/22 Rx insulin glargine 100 unit/mL (3 32 unit subcut BID 07/26/22 08/28/22 History mL) subcutaneous pen (Basaglar KwikPen U-100 Insulin) hydrocodone 7.5 mg-acetaminophen 1 tab PO Q4-6H PRN pain #20 tabs 07/27/22 08/28/22 Rx 325 mg tablet torsemide 10 mg tablet 10 mg PO .3 a day #90 tabs 07/31/22 08/28/22 Rx atorvastatin 80 mg tablet (Lipitor) 80 mg PO QDAY #90 tabs 08/07/22 08/28/22 Rx diltiazem HCl 360 mg capsule,24 360 mg PO QAM #30 caps 08/15/22 08/28/22 Rx hr,extended release bisacodyl 10 mg rectal suppository 10 mg NV QDAY PRN Constipation 08/28/22 08/28/22 History (Dulcolax (bisacodyl)) insulin lispro 100 unit/mL See Rx Instructions .Route .COMPLEX 08/28/22 08/28/22 History subcutaneous pen (Humalog KwikPen (U-100) Insulin) sodium phosphates 19 gram-7 See Rx Instructions .Route .COMPLEX 08/28/22 08/28/22 History gram/118 mL enema (Fleet Enema) Allergies Allergy/AdvReac Type Severity Reaction Status Date / Time Sulfa (Sulfonamide Allergy Unknown Unknown Verified 08/28/22 14:45 Antibiotics) losartan AdvReac Intermediate swelling Verified 08/28/22 14:45 in legs metoprolol AdvReac Intermediate Weakness, Verified 08/28/22 14:45 dizzy, no appetite. nystatin AdvReac Intermediate states Verified 08/28/22 14:45 falls when on it. EXAM Constitutional Vitals: Temp Pulse Resp BP Pulse Ox O2 Del Method 97.7 F 86 18 108/61 99 Room Air 08/28/22 14:40 08/28/22 14:40 08/28/22 14:40 08/28/22 14:40 08/28/22 14:40 08/28/22 14:40 General appearance: no acute distress Respiratory Respiratory exam: Present normal respiratory exam and CTAB Cardiovascular Cardiovascular exam: Present irregular rhythm Neurological Exam Neurological exam: Present CN II-XII intact and oriented X3 DATA Data Completed and Pending Labs: Labs from last 24 hours 08/28/22 08/28/22 08/28/22 18:25 15:50 15:42 WBC RBC Hgb Hct POC Hct 42.0 MCV MCH MCHC RDW Plt Count MPV Immature Gran % (Auto) Neut % (Auto) Lymph % (Auto) [place] % (Auto) Eos % (Auto) Baso % (Auto) Lymph # (Auto) [place] # (Auto) Eos # (Auto) Baso # (Auto) Immature Gran # Absolute Neutrophils POC Sodium 124 L POC Potassium 5.5 H Potassium 4.9 POC Chloride 96 POC Total CO2 21.0 L POC BUN 67 H POC Creatinine 2.1 H POC Glucose 278 H POC WB Ioniz Calcium 1.16 Total Bilirubin Direct Bilirubin AST ALT Alkaline Phosphatase Total Protein Albumin Globulin Lipase Urine Color Yellow Urine Appearance Cloudy A Urine pH 5.0 Ur Specific [place] 1.013 Urine Protein Negative Urine Glucose (UA) >=500 A Urine Ketones Negative Urine Occult Blood Negative Urine Nitrate Negative Urine Bilirubin Negative Urine Urobilinogen Negative Ur Leukocyte Esterase 500 A Urine RBC 0 Urine WBC > 182 H Ur Squamous Epith Cells 4 Urine Bacteria Few A Urine Yeast (Budding) Many A Ur Culture Indicated? yes 08/28/22 08/28/22 15:40 15:40 WBC 12.8 H RBC 4.58 Hgb 13.0 Hct 39.1 POC Hct MCV 85.4 MCH 28.4 MCHC 33.2 RDW 17.2 H Plt Count 323 MPV 10.2 Immature Gran % (Auto) 0.7 H Neut % (Auto) 77.0 Lymph % (Auto) 12.2 L [place] % (Auto) 7.8 Eos % (Auto) 1.8 Baso % (Auto) 0.5 Lymph # (Auto) 1.56 [place] # (Auto) 0.99 H Eos # (Auto) 0.23 Baso # (Auto) 0.07 Immature Gran # 0.09 H Absolute Neutrophils 9.82 H POC Sodium POC Potassium Potassium POC Chloride POC Total CO2 POC BUN POC Creatinine POC Glucose POC WB Ioniz Calcium Total Bilirubin 0.3 Direct Bilirubin < 0.2 AST 8 ALT 16 Alkaline Phosphatase 130 H Total Protein 7.1 Albumin 4.0 Globulin 3.1 Lipase 34 Urine Color Urine Appearance Urine pH Ur Specific [place] Urine Protein Urine Glucose (UA) Urine Ketones Urine Occult Blood Urine Nitrate Urine Bilirubin Urine Urobilinogen Ur Leukocyte Esterase Urine RBC Urine WBC Ur Squamous Epith Cells Urine Bacteria Urine Yeast (Budding) Ur Culture Indicated? A/P Assessment and plan (1) Acute UTI: Assessment and plan: - urine culture pending - ceftriaxone 1 gm daily Status: Acute (2) JONES (acute kidney injury): Assessment and plan: - hold spironolactone, torsemide, lisinopril, dapagliflozin - IVF Status: Acute (3) Type 2 diabetes mellitus with hyperglycemia: Assessment and plan: - continue Lantus and SSI - hold dapagliflozin Status: Acute (4) Atrial fibrillation: Assessment and plan: - continue diltiazem and apixaban Status: Acute Qualifiers: Atrial fibrillation type: unspecified Qualified Code(s): I48.91 - Uns pecified atrial fibrillation Time Spent With Patient Time: Total time spent is greater than 50% in coordination of care (as documented) at patient's floor/unit and/or counseling patient: Initial: Total time with patient: 40 - 54 minutes
[2022-08-28] MEDS ORDERED: DEXTROSE 31 GM ORAL.SUSP PO PRN (21:34)
[2022-08-28] MEDS ORDERED: DEXTROSE 50% 50 ML VIAL IV PRN (21:34)
[2022-08-28] MEDS ORDERED: ACETAMINOPHEN 325 MG TABLET PO PRN (21:34)
[2022-08-28] MEDS ORDERED: ONDANSETRON 4 MG/2 ML VIAL IV PRN (21:34)
[2022-08-28] MEDS: 0.9 % SODIUM CHLORIDE 10 ML SYRINGE IV SCH (22:02)
[2022-08-28] MEDS: 0.9 % SODIUM CHLORIDE 1,000 ML IV SCH (22:16)
[2022-08-28] MEDS: SENNOSIDES 1 TABLET PO SCH (22:17)
[2022-08-28] MEDS: APIXABAN 5 MG TABLET PO SCH (22:17)
[2022-08-28] MEDS: CARBIDOPA/LEVODOPA 10/100 TABLET PO SCH (22:17)
[2022-08-28] MEDS: DOCUSATE SODIUM 100 MG CAPSULE PO SCH (22:17)
[2022-08-28] MEDS: ESCITALOPRAM 10 MG TABLET PO SCH (22:18)
[2022-08-28] MEDS: INSULIN GLARGINE, HUMAN 1 UNIT/0.01 ML SQ SCH (22:29)
[2022-08-28] MEDS: INSULIN LISPRO 1 UNIT/0.01 ML UNIT SQ SCH (22:29)
[2022-08-29] MEDS: 0.9 % SODIUM CHLORIDE 10 ML SYRINGE IV SCH ×3 (04:30→21:50)
[2022-08-29] MEDS: 0.9 % SODIUM CHLORIDE 1,000 ML IV SCH ×3 (06:04→23:06)
[2022-08-29 06:52] LABS: Basophils # (Auto) 0.08 K/mcL (0.00-0.30); Basophils % (Auto) 0.9 % (0.0-2.0); Eosinophils # (Auto) 0.21 K/mcL (0.00-0.70); Eosinophils % (Auto) 2.4 % (0.0-7.0); Hematocrit 38.4 % (34.1-44.9); Hemoglobin 12.5 g/dL (11.2-15.7); Lymphocytes % (Auto) 16.9 % (15.5-49.0); Mean Cell Volume 86.7 fL (80.0-100.0); Mean Corpuscular HGB Conc 32.6 g/dL (31.0-36.0); Mean Platelet Volume 9.8 fL (8.8-12.5); Monocytes # (Auto) 0.62 K/mcL (0.10-0.90); Neutrophils % (Auto) 72.2 % (38.0-78.0); Platelet Count 275 K/mcL (140-440); RBC 4.43 M/mcL (3.59-5.38); Red Cell Distribution Width 17.2 % (11.5-14.5); WBC 8.9 K/mcL (4.5-11.0)
[2022-08-29 07:16] LABS: Blood Urea Nitrogen 40 mg/dL (8-23); Calcium 8.5 mg/dL (8.6-10.4); Carbon Dioxide 18 mmol/L (22-30); Chloride 103 mmol/L (96-108); Glomerular Filtration Rate 52; Glucose 83 mg/dL (70-105)
[2022-08-29] MEDS: INSULIN LISPRO 1 UNIT/0.01 ML UNIT SQ SCH ×4 (07:35→21:58)
[2022-08-29] MEDS: DILTIAZEM 120 MG CAP.XL.24H PO SCH (09:13)
[2022-08-29] MEDS: ATORVASTATIN 40 MG TABLET PO SCH (09:13)
[2022-08-29] MEDS: cefTRIAXone 1 GM VIAL IV SCH (09:13)
[2022-08-29] MEDS: INSULIN GLARGINE, HUMAN 1 UNIT/0.01 ML SQ SCH ×2 (09:14→21:58)
[2022-08-29] MEDS: APIXABAN 5 MG TABLET PO SCH ×2 (09:14→21:49)
[2022-08-29] MEDS: PANTOPRAZOLE 40 MG TABLET PO SCH (09:14)
[2022-08-29] MEDS: CARBIDOPA/LEVODOPA 10/100 TABLET PO SCH ×2 (09:14→21:49)
[2022-08-29] MEDS: DOCUSATE SODIUM 100 MG CAPSULE PO SCH ×2 (09:15→21:49)
--- NOTE | 2022-08-29 15:45 | Internal Med Progress Note ---
SUBJECTIVE Subjective Patient information: Note initiated : 08/29/22 at 3:40 pm Service Date, if different from initiated Date: [] Patient: Candice Khan a 81 y/o F admitted on 08/28/22 for UTI. Chief Complaint: [] Interval history: Ms. Khan is a 81 year old F with peristent afib, IDDM, HTN, HLD, PVD, HFpEF. Pt sent from for JONES and UTI. She was reportedly found to have UTI at SNF treated with PO cipro but patient worsened. adn she was sent to the ED for further evaluation and management. Workup in the ED notable for Cr 2.1, most recently normal and positive UA. Pt was given IVF and ceftriaxone and admission requested. Urine Cx was obtained and is pending. Aug 29, BUN/Cr improved to 40/1.0 and WBC improved to 8.9 from 12.8. Urine Cx is "Enterococcus species." Will add nitrofurantoin to ceftriaxone until further ID and Sensitivity resulted. Constitutional Vitals: Vital Signs Temp Pulse Resp BP Pulse Ox O2 Del Method 98.8 F 101 H 20 117/74 98 Room Air 08/29/22 11:36 08/29/22 11:36 08/29/22 11:36 08/29/22 11:36 08/29/22 11:36 08/29/22 11:36 Period Temp Pulse Resp BP Sys/Purvis Pulse Ox O2 Del Method O2 Flow Rate Last 24 Hr 97.7 F-98.8 F 80-101 20-22 106-137/62-95 94-99 Room Air-Room Air Intake and Output 08/29/22 08/29/22 08/29/22 03:59 11:59 19:59 Intake Total 500 1075 1400 Output Total 502 1 Balance 160 506 2520 Weight 74.446 kg 74.446 kg Patient Weight 08/30/22 03:59 Weight 74.446 kg Intake & Output: Intake & Output 08/29/22 08/29/22 08/29/22 03:59 11:59 19:59 Intake Total 500 1075 1400 Output Total 502 1 Balance 231 034 3167 Weight 74.446 kg 74.446 kg Intake: IV 205 614 8643 Sodium Chloride 0.9% 1,000 ml @ 975 1000 125 mls/hr IV .Q8H ELAINE Rx#: [id number] Sodium Chloride 0.9% 500 ml @ 500 Wide Open IV BOLUS ONE Rx#: [id number] Oral 100 400 Output: Void Amount 500 # of times incontinent of urine 2 1 Other: Meal Breakfast Lunch Percent of Meal Consumed 100% 50% Feeding Ability Independent Assist with Tray Set Up Urine Appearance Cloudy Urine Color Bright Yellow Urine Odor Strong Stool Size Moderate Stool Color Brown Stool Consistency Soft Loose # Voids 2 General appearance: average body habitus and no acute distress Head Head exam: Present atraumatic, normal inspection and normocephalic ENT ENT exam: Present mucous membranes moist Respiratory Respiratory exam: Present normal respiratory exam and CTAB Cardiovascular Cardiovascular exam: Present normal rate and rhythm GI/Abdominal GI/Abdominal exam: Present normal bowel sounds and soft; Absent distended Neurological Exam Neurological exam: Present CN II-XII intact and oriented X3 OBJ DATA Labs 08/29/22 05:46 08/29/22 05:46 Labs: Abnormal Lab Results 08/29/22 08/29/22 08/28/22 05:46 05:46 15:50 WBC RDW 17.2 H Immature Gran % (Auto) 0.6 H Lymph % (Auto) [place] # (Auto) Immature Gran # Absolute Neutrophils POC Sodium Sodium 132 L POC Potassium Carbon Dioxide 18 L POC Total CO2 POC BUN BUN 40 H POC Creatinine POC Glucose Calcium 8.5 L Alkaline Phosphatase Urine Appearance Cloudy A Urine Glucose (UA) >=500 A Ur Leukocyte Esterase 500 A Urine WBC > 182 H Urine Bacteria Few A Urine Yeast (Budding) Many A 08/28/22 08/28/22 08/28/22 15:42 15:40 15:40 WBC 12.8 H RDW 17.2 H Immature Gran % (Auto) 0.7 H Lymph % (Auto) 12.2 L [place] # (Auto) 0.99 H Immature Gran # 0.09 H Absolute Neutrophils 9.82 H POC Sodium 124 L Sodium POC Potassium 5.5 H Carbon Dioxide POC Total CO2 21.0 L POC BUN 67 H BUN POC Creatinine 2.1 H POC Glucose 278 H Calcium Alkaline Phosphatase 130 H Urine Appearance Urine Glucose (UA) Ur Leukocyte Esterase Urine WBC Urine Bacteria Urine Yeast (Budding) Meds: Medications Acetaminophen (Acetaminophen 325 Mg Tablet) 650 mg PO Q6HP PRN; Protocol PRN Reason: Per Pain Protocol/Fever > 101 Hydrocodone Bitart/Acetaminophen (Hydrocodone/Apap 7.5/325mg Tablet) 1 tab PO Q4-6HP PRN PRN Reason: Pain Apixaban (Apixaban 5 Mg Tablet) 2.5 mg PO BID [facility] Last Admin: 08/29/22 09:14 Dose: 2.5 mg Atorvastatin Calcium (Atorvastatin 40 Mg Tablet) 80 mg PO QDAY [facility] Last Admin: 08/29/22 09:13 Dose: 80 mg Carbidopa/Levodopa (Carbidopa/Levodopa 10/100 Tablet) 1 tab PO BID [facility] Last Admin: 08/29/22 09:14 Dose: 1 tab Ceftriaxone Sodium (Ceftriaxone 1 Gm Vial) 1 gm IV DAILY [facility]; Protocol Last Admin: 08/29/22 09:13 Dose: 1 gm Dextrose (Dextrose 50% 50 Ml Vial) 0 ml IV UD PRN PRN Reason: Per Sliding Scale Diagnostic Test (Pha) (Accu-Chek 1 Each Strip) 1 each FS ACHS [facility] Last Admin: 08/29/22 11:31 Dose: 1 each Diltiazem HCl (Diltiazem 120 Mg Cap.Xl.24h) 360 mg PO DAILY [facility] Last Admin: 08/29/22 09:13 Dose: 360 mg Docusate Sodium (Docusate Sodium 100 Mg Capsule) 100 mg PO BID [facility] Last Admin: 08/29/22 09:15 Dose: Not Given Escitalopram Oxalate (Escitalopram 10 Mg Tablet) 5 mg PO QHS [facility] Last Admin: 08/28/22 22:18 Dose: 5 mg Glucose (Dextrose 31 Gm Oral.Susp) 15 gm PO PRN PRN PRN Reason: Hypoglycemia Sodium Chloride (Sodium Chloride 0.9%) 1,000 mls @ 125 mls/hr IV .Q8H [facility] Last Admin: 08/29/22 15:02 Dose: 125 mls/hr Insulin Glargine (Insulin Glargine, Human 1 Unit/0.01 Ml) 15 unit SQ BID [facility] Last Admin: 08/29/22 09:14 Dose: 15 units Insulin Human Lispro (Insulin Lispro 1 Unit/0.01 Ml Unit) 0 unit SQ ACHS [facility]; Protocol Last Admin: 08/29/22 11:44 Dose: 6 units Ondansetron HCl (Ondansetron 4 Mg/2 Ml Vial) 4 mg IV Q6HP PRN PRN Reason: Nausea And Vomiting Pantoprazole Sodium (Pantoprazole 40 Mg Tablet) 40 mg PO QDAY [facility] Last Admin: 08/29/22 09:14 Dose: 40 mg Senna (Sennosides 1 Tablet) 2 tab PO HS [facility] Last Admin: 08/28/22 22:17 Dose: 2 tab Sodium Chloride (0.9 % Sodium Chloride 10 Ml Syringe) 10 ml IV Q8 [facility] Last Admin: 08/29/22 15:02 Dose: Not Given A/P Assessment and plan (1) Acute UTI: Assessment and plan: - urine culture notes "Enterococcus species" - continue ceftriaxone 1 gm daily - add nitrofurantoin - monitor cultures Status: Acute (2) JONES (acute kidney injury): Assessment and plan: -hold spironolactone, torsemide, lisinopril, dapagliflozin - IVF Status: Acute (3) Type 2 diabetes mellitus with hyperglycemia: Assessment and plan: - continue Lantus and SSI - hold dapagliflozin Status: Acute (4) Atrial fibrillation: Assessment and plan: - continue diltiazem and apixaban Status: Acute Qualifiers: Atrial fibrillation type: unspecified Qualified Code(s): I48.91 - Unspecified atrial fibrillation Time Spent With Patient Time: Total time spent is greater than 50% in coordination of care (as documented) at patient's floor/unit and/or counseling patient: Subsequent: Total time with patient: 25 - 34 minutes
[2022-08-29] MEDS: ESCITALOPRAM 10 MG TABLET PO SCH (21:49)
[2022-08-29] MEDS: SENNOSIDES 1 TABLET PO SCH (21:57)
[2022-08-29] MEDS: NITROFURANTOIN SR 100 MG CAPSULE PO SCH (22:03)
[2022-08-30] MEDS: 0.9 % SODIUM CHLORIDE 10 ML SYRINGE IV SCH ×3 (04:31→20:14)
[2022-08-30 06:55] LABS: Basophils # (Auto) 0.07 K/mcL (0.00-0.30); Basophils % (Auto) 0.9 % (0.0-2.0); Eosinophils # (Auto) 0.19 K/mcL (0.00-0.70); Eosinophils % (Auto) 2.3 % (0.0-7.0); Hematocrit 37.2 % (34.1-44.9); Lymphocytes # (Auto) 1.54 K/mcL (1.50-4.80); Lymphocytes % (Auto) 18.8 % (15.5-49.0); Mean Cell Volume 87.1 fL (80.0-100.0); Mean Corpuscular HGB Conc 32.3 g/dL (31.0-36.0); Mean Platelet Volume 9.9 fL (8.8-12.5); Monocytes # (Auto) 0.69 K/mcL (0.10-0.90); Monocytes % (Auto) 8.4 % (1.0-12.0); Neutrophils % (Auto) 68.7 % (38.0-78.0); Platelet Count 270 K/mcL (140-440); RBC 4.27 M/mcL (3.59-5.38); WBC 8.2 K/mcL (4.5-11.0)
[2022-08-30] MEDS: 0.9 % SODIUM CHLORIDE 1,000 ML IV SCH (07:02)
[2022-08-30] MEDS: INSULIN LISPRO 1 UNIT/0.01 ML UNIT SQ SCH ×4 (07:05→20:29)
[2022-08-30 07:36] LABS: Blood Urea Nitrogen 16 mg/dL (8-23); Calcium 8.4 mg/dL (8.6-10.4); Carbon Dioxide 15 mmol/L (22-30); Chloride 108 mmol/L (96-108); Glomerular Filtration Rate 80; Glucose 118 mg/dL (70-105)
[2022-08-30] MEDS: INSULIN GLARGINE, HUMAN 1 UNIT/0.01 ML SQ SCH ×2 (08:24→20:29)
[2022-08-30] MEDS: APIXABAN 5 MG TABLET PO SCH ×2 (08:24→20:27)
[2022-08-30] MEDS: cefTRIAXone 1 GM VIAL IV SCH (08:24)
[2022-08-30] MEDS: ATORVASTATIN 40 MG TABLET PO SCH (08:24)
[2022-08-30] MEDS: DILTIAZEM 120 MG CAP.XL.24H PO SCH (08:24)
[2022-08-30] MEDS: NITROFURANTOIN SR 100 MG CAPSULE PO SCH ×2 (08:25→20:27)
[2022-08-30] MEDS: CARBIDOPA/LEVODOPA 10/100 TABLET PO SCH ×2 (08:25→20:27)
[2022-08-30] MEDS: PANTOPRAZOLE 40 MG TABLET PO SCH (08:25)
[2022-08-30] MEDS: DOCUSATE SODIUM 100 MG CAPSULE PO SCH ×2 (08:25→20:14)
--- NOTE | 2022-08-30 10:10 | Internal Med Progress Note ---
SUBJECTIVE Subjective Patient information: Note initiated : 08/30/22 at 10:04 am Service Date, if different from initiated Date: [] Patient: Candice Khan a 81 y/o F admitted on 08/28/22 for UTI. Chief Complaint: [] Interval history: Ms. Khan is a 81 year old F with peristent afib, IDDM, HTN, HLD, PVD, HFpEF. Pt sent from [facility] for JONES and UTI. She was reportedly found to have UTI at SNF treated with PO cipro but patient worsened. adn she was sent to the ED for further evaluation and management. Workup in the ED notable for Cr 2.1, most recently normal and positive UA. Pt was given IVF and ceftriaxone and admission requested. Urine Cx was obtained and is pending. Aug 29, BUN/Cr improved to 40/1.0 and WBC improved to 8.9 from 12.8. Urine Cx is "Enterococcus species." Will add nitrofurantoin to ceftriaxone until further ID and Sensitivity resulted. Aug 30, JONES corrrected, IVF stopped. Urine Cx still reported as enterococcus spe cies, no sensitivities. Will await sensitivity for D/C. Constitutional Vitals: Vital Signs Temp Pulse Resp BP Pulse Ox O2 Del Method 98.1 F 107 H 20 128/79 99 Room Air 08/30/22 07:57 08/30/22 07:57 08/30/22 07:57 08/30/22 07:57 08/30/22 07:57 08/30/22 07:57 Period Temp Pulse Resp BP Sys/Purvis Pulse Ox O2 Del Method O2 Flow Rate Last 24 Hr 97.2 F-98.8 F 63-107 20-24 115-143/52-79 96-99 Room Air-Room Air Intake and Output 08/29/22 08/30/22 08/30/22 19:59 03:59 11:59 Intake Total 1999 1200 1177 Output Total 3 Balance 1996 1199 1177 Weight 74.162 kg Intake & Output: Intake & Output 08/29/22 08/30/22 08/30/22 19:59 03:59 11:59 Intake Total 1999 1200 1177 Output Total 3 Balance 1996 1199 1177 Weight 74.162 kg Intake: IV 1000 1000 1177 Sodium Chloride 0.9% 1,000 ml @ 1000 1000 1177 125 mls/hr IV .Q8H ELAINE Rx#: [id number] Oral 1000 200 Output: # of times incontinent of urine 3 Other: Meal Lunch Percent of Meal Consumed 50% Feeding Ability Assist with Tray Set Up Urine Color Bright Yellow Urine Odor Strong Stool Size Moderate Moderate Stool Color Brown Brown Stool Consistency Loose Loose # of times incontinent of 1 Bowels General appearance: no acute distress Head Head exam: Present atraumatic, normal inspection and normocephalic ENT ENT exam: Present mucous membranes moist Respiratory Respiratory exam: Present normal respiratory exam and CTAB Cardiovascular Cardiovascular exam: Present normal rate and rhythm GI/Abdominal GI/Abdominal exam: Present normal bowel sounds and soft Neurological Exam Neurological exam: Present CN II-XII intact and oriented X3 OBJ DATA Labs 08/30/22 06:05 08/30/22 06:05 Labs: Abnormal Lab Results 08/30/22 08/30/22 08/29/22 06:05 06:05 05:46 WBC RDW 17.0 H Immature Gran % (Auto) 0.9 H Lymph % (Auto) [place] # (Auto) Immature Gran # 0.07 H Absolute Neutrophils POC Sodium Sodium 132 L POC Potassium Carbon Dioxide 15 L 18 L POC Total CO2 POC BUN BUN 40 H POC Creatinine Glucose 118 H POC Glucose Calcium 8.4 L 8.5 L Alkaline Phosphatase Urine Appearance Urine Glucose (UA) Ur Leukocyte Esterase Urine WBC Urine Bacteria Urine Yeast (Budding) 08/29/22 08/28/22 08/28/22 05:46 15:50 15:42 WBC RDW 17.2 H Immature Gran % (Auto) 0.6 H Lymph % (Auto) [place] # (Auto) Immature Gran # Absolute Neutrophils POC Sodium 124 L Sodium POC Potassium 5.5 H Carbon Dioxide POC Total CO2 21.0 L POC BUN 67 H BUN POC Creatinine 2.1 H Glucose POC Glucose 278 H Calcium Alkaline Phosphatase Urine Appearance Cloudy A Urine Glucose (UA) >=500 A Ur Leukocyte Esterase 500 A Urine WBC > 182 H Urine Bacteria Few A Urine Yeast (Budding) Many A 08/28/22 08/28/22 15:40 15:40 WBC 12.8 H RDW 17.2 H Immature Gran % (Auto) 0.7 H Lymph % (Auto) 12.2 L [place] # (Auto) 0.99 H Immature Gran # 0.09 H Absolute Neutrophils 9.82 H POC Sodium Sodium POC Potassium Carbon Dioxide POC Total CO2 POC BUN BUN POC Creatinine Glucose POC Glucose Calcium Alkaline Phosphatase 130 H Urine Appearance Urine Glucose (UA) Ur Leukocyte Esterase Urine WBC Urine Bacteria Urine Yeast (Budding) Meds: Medications Acetaminophen (Acetaminophen 325 Mg Tablet) 650 mg PO Q6HP PRN; Protocol PRN Reason: Per Pain Protocol/Fever > 101 Hydrocodone Bitart/Acetaminophen (Hydrocodone/Apap 7.5/325mg Tablet) 1 tab PO Q4-6HP PRN PRN Reason: Pain Apixaban (Apixaban 5 Mg Tablet) 2.5 mg PO BID [facility] Last Admin: 08/30/22 08:24 Dose: 2.5 mg Atorvastatin Calcium (Atorvastatin 40 Mg Tablet) 80 mg PO QDAY [facility] Last Admin: 08/30/22 08:24 Dose: 80 mg Carbidopa/Levodopa (Carbidopa/Levodopa 10/100 Tablet) 1 tab PO BID [facility] Last Admin: 08/30/22 08:25 Dose: 1 tab Ceftriaxone Sodium (Ceftriaxone 1 Gm Vial) 1 gm IV DAILY [facility]; Protocol Last Admin: 08/30/22 08:24 Dose: 1 gm Dextrose (Dextrose 50% 50 Ml Vial) 0 ml IV UD PRN PRN Reason: Per Sliding Scale Diagnostic Test (Pha) (Accu-Chek 1 Each Strip) 1 each FS [facility] Last Admin: 08/30/22 07:05 Dose: 1 each Diltiazem HCl (Diltiazem 120 Mg Cap.Xl.24h) 360 mg PO DAILY [facility] Last Admin: 08/30/22 08:24 Dose: 360 mg Docusate Sodium (Docusate Sodium 100 Mg Capsule) 100 mg PO BID [facility] Last Admin: 08/30/22 08:25 Dose: Not Given Escitalopram Oxalate (Escitalopram 10 Mg Tablet) 5 mg PO QHS [facility] Last Admin: 08/29/22 21:49 Dose: 5 mg Glucose (Dextrose 31 Gm Oral.Susp) 15 gm PO PRN PRN PRN Reason: Hypoglycemia Insulin Glargine (Insulin Glargine, Human 1 Unit/0.01 Ml) 15 unit SQ BID [facility] Last Admin: 08/30/22 08:24 Dose: 15 units Insulin Human Lispro (Insulin Lispro 1 Unit/0.01 Ml Unit) 0 unit SQ [facility]; Protocol Last Admin: 08/30/22 07:05 Dose: Not Given Nitrofurantoin Macrocrystals (Nitrofurantoin Sr 100 Mg Capsule) 100 mg PO BID [facility] Last Admin: 08/30/22 08:25 Dose: 100 mg Ondansetron HCl (Ondansetron 4 Mg/2 Ml Vial) 4 mg IV Q6HP PRN PRN Reason: Nausea And Vomiting Last Admin: 08/30/22 09:25 Dose: 4 mg Pantoprazole Sodium (Pantoprazole 40 Mg Tablet) 40 mg PO QDAY [facility] Last Admin: 08/30/22 08:25 Dose: 40 mg Senna (Sennosides 1 Tablet) 2 tab PO HS [facility] Last Admin: 08/29/22 21:57 Dose: Not Given Sodium Chloride (0.9 % Sodium Chloride 10 Ml Syringe) 10 ml IV Q8 [facility] Last Admin: 08/30/22 04:31 Dose: Not Given A/P Assessment and plan (1) Acute UTI: Assessment and plan: - urine culture notes "Enterococcus species" - continue ceftriaxone 1 gm daily - add nitrofurantoin - monitor cultures for sensitivity Status: Acute (2) JONES (acute kidney injury): Assessment and plan: - resolved - stop IVF - resume spironolactone, torsemide, lisinopril as needed Status: Acute (3) Type 2 diabetes mellitus with hyperglycemia: Assessment and plan: - continue Lantus and SSI - hold dapagliflozin, resume at discharge Status: Acute (4) Atrial fibrillation: Assessment and plan: - continue diltiazem and apixaban Status: Acute Qualifiers: Atrial fibrillation type: unspecified Qualified Code(s): I48.91 - Unspecified atrial fibrillation Time Spent With Patient Time: Total time spent is greater than 50% in coordination of care (as documented) at patient's floor/unit and/or counseling patient: Subsequent: Total time with patient: 25 - 34 minutes
--- NOTE | 2022-08-30 13:39 | Internal Med Progress Note ---
SUBJECTIVE Subjective Patient information: Note initiated : 08/30/22 at 1:35 pm Service Date, if different from initiated Date: [] Patient: Candice Khan a 81 y/o F admitted on 08/28/22 for UTI. Chief Complaint: [] Interval history: Ms. Khan is a 81 year old F with peristent afib, IDDM, HTN, HLD, PVD, HFpEF. Pt sent from [facility] for JONES and UTI. She was reportedly found to have UTI at SNF treated with PO cipro but patient worsened. adn she was sent to the ED for further evaluation and management. Workup in the ED notable for Cr 2.1, most recently normal and positive UA. Pt was given IVF and ceftriaxone and admission requested. Urine Cx was obtained and is pending. Aug 29, BUN/Cr improved to 40/1.0 and WBC improved to 8.9 from 12.8. Urine Cx is "Enterococcus species." Will add nitrofurantoin to ceftriaxone until further ID and Sensitivity resulted. Aug 30, JONES corrrected, IVF stopped. Urine Cx still reported as enterococcus spec ies, no sensitivities. Will await sensitivity for D/C. / Review of Systems: denies headache/fever/chills/nausea/vomiting/chest or abdominal pain/cough/dyspnea/diarrhea. Otherwise see above. PHYSICAL EXAM: General: Alert, Awake, No acute Distress, obese Eyes/N/T: EOMI, no scleral icterus, Head/Neck: neck supple, full ROM, CV: RRR, No murmurs, Pulm: Clear b/l, no wheezing/rhonchi/rales, no respiratory distress Abd: soft, nontender, +BS x4 Ext: no clubbing/cyanosis/edema, nontender Neuro: Alert, no focal deficits, moves all extremities, , sensations intact b/l upper/lower Psychiatric: Skin: warm/dry, normal color Constitutional Vitals: Vital Signs Temp Pulse Resp BP Pulse Ox O2 Del Method 98.4 F 91 H 20 155/93 97 Room Air 08/30/22 12:00 08/30/22 12:08/30/22 12:00 08/30/22 12:00 08/30/22 12:08/30/22 12:00 Period Temp Pulse Resp BP Sys/Purvis Pulse Ox O2 Del Method O2 Flow Rate Last 24 Hr 97.2 F-98.4 F 63-107 20-24 115-155/52-93 96-99 Room Air-Room Air Intake and Output 08/30/22 08/30/22 08/30/22 03:59 11:59 19:59 Intake Total 1200 1177 Output Total 251 Balance 1200 926 Intake & Output: Intake & Output 08/30/22 08/30/22 08/30/22 03:59 11:59 19:59 Intake Total 1200 1177 Output Total 251 Balance 1200 926 Intake: IV 1000 1177 Sodium Chloride 0.9% 1,000 ml @ 1000 1177 125 mls/hr IV .Q8H [facility] Rx#: [id number] Oral 200 Output: # of times incontinent of urine 1 Urine/Stool Mix 250 Other: Stool Size Moderate Moderate Stool Color Brown Brown Stool Consistency Loose Soft Loose # of times incontinent of 1 Bowels OBJ DATA Labs 08/30/22 06:05 08/30/22 06:05 Labs: Abnormal Lab Results 08/30/22 08/30/22 08/29/22 06:05 06:05 05:46 WBC RDW 17.0 H Immature Gran % (Auto) 0.9 H Lymph % (Auto) [place] # (Auto) Immature Gran # 0.07 H Absolute Neutrophils POC Sodium Sodium 132 L POC Potassium Carbon Dioxide 15 L 18 L POC Total CO2 POC BUN BUN 40 H POC Creatinine Glucose 118 H POC Glucose Calcium 8.4 L 8.5 L Alkaline Phosphatase Urine Appearance Urine Glucose (UA) Ur Leukocyte Esterase Urine WBC Urine Bacteria Urine Yeast (Budding) 08/29/22 08/28/22 08/28/22 05:46 15:50 15:42 WBC RDW 17.2 H Immature Gran % (Auto) 0.6 H Lymph % (Auto) [place] # (Auto) Immature Gran # Absolute Neutrophils POC Sodium 124 L Sodium POC Potassium 5.5 H Carbon Dioxide POC Total CO2 21.0 L POC BUN 67 H BUN POC Creatinine 2.1 H Glucose POC Glucose 278 H Calcium Alkaline Phosphatase Urine Appearance Cloudy A Urine Glucose (UA) >=500 A Ur Leukocyte Esterase 500 A Urine WBC > 182 H Urine Bacteria Few A Urine Yeast (Budding) Many A 08/28/22 08/28/22 15:40 15:40 WBC 12.8 H RDW 17.2 H Immature Gran % (Auto) 0.7 H Lymph % (Auto) 12.2 L [place] # (Auto) 0.99 H Immature Gran # 0.09 H Absolute Neutrophils 9.82 H POC Sodium Sodium POC Potassium Carbon Dioxide POC Total CO2 POC BUN BUN POC Creatinine Glucose POC Glucose Calcium Alkaline Phosphatase 130 H Urine Appearance Urine Glucose (UA) Ur Leukocyte Esterase Urine WBC Urine Bacteria Urine Yeast (Budding) Meds: Medications Acetaminophen (Acetaminophen 325 Mg Tablet) 650 mg PO Q6HP PRN; Protocol PRN Reason: Per Pain Protocol/Fever > 101 Hydrocodone Bitart/Acetaminophen (Hydrocodone/Apap 7.5/325mg Tablet) 1 tab PO Q4-6HP PRN PRN Reason: Pain Apixaban (Apixaban 5 Mg Tablet) 2.5 mg PO BID [facility] Last Admin: 08/30/22 08:24 Dose: 2.5 mg Atorvastatin Calcium (Atorvastatin 40 Mg Tablet) 80 mg PO QDAY [facility] Last Admin: 08/30/22 08:24 Dose: 80 mg Carbidopa/Levodopa (Carbidopa/Levodopa 10/100 Tablet) 1 tab PO BID [facility] Last Admin: 08/30/22 08:25 Dose: 1 tab Ceftriaxone Sodium (Ceftriaxone 1 Gm Vial) 1 gm IV DAILY [facility]; Protocol Last Admin: 08/30/22 08:24 Dose: 1 gm Dextrose (Dextrose 50% 50 Ml Vial) 0 ml IV UD PRN PRN Reason: Per Sliding Scale Diagnostic Test (Pha) (Accu-Chek 1 Each Strip) 1 each FS ACHS [facility] Last Admin: 08/30/22 11:25 Dose: 1 each Diltiazem HCl (Diltiazem 120 Mg Cap.Xl.24h) 360 mg PO DAILY [facility] Last Admin: 08/30/22 08:24 Dose: 360 mg Docusate Sodium (Docusate Sodium 100 Mg Capsule) 100 mg PO BID [facility] Last Admin: 08/30/22 08:25 Dose: Not Given Escitalopram Oxalate (Escitalopram 10 Mg Tablet) 5 mg PO QHS [facility] Last Admin: 08/29/22 21:49 Dose: 5 mg Glucose (Dextrose 31 Gm Oral.Susp) 15 gm PO PRN PRN PRN Reason: Hypoglycemia Insulin Glargine (Insulin Glargine, Human 1 Unit/0.01 Ml) 15 unit SQ BID [facility] Last Admin: 08/30/22 08:24 Dose: 15 units Insulin Human Lispro (Insulin Lispro 1 Unit/0.01 Ml Unit) 0 unit SQ ACHS [facility]; Protocol Last Admin: 08/30/22 11:57 Dose: 2 units Nitrofurantoin Macrocrystals (Nitrofurantoin Sr 100 Mg Capsule) 100 mg PO BID [facility] Last Admin: 08/30/22 08:25 Dose: 100 mg Ondansetron HCl (Ondansetron 4 Mg/2 Ml Vial) 4 mg IV Q6HP PRN PRN Reason: Nausea And Vomiting Last Admin: 08/30/22 09:25 Dose: 4 mg Pantoprazole Sodium (Pantoprazole 40 Mg Tablet) 40 mg PO QDAY [facility] Last Admin: 08/30/22 08:25 Dose: 40 mg Senna (Sennosides 1 Tablet) 2 tab PO HS [facility] Last Admin: 08/29/22 21:57 Dose: Not Given Sodium Chloride (0.9 % Sodium Chloride 10 Ml Syringe) 10 ml IV Q8 [facility] Last Admin: 08/30/22 04:31 Dose: Not Given A/P Narrative A/P Narrative: Assessment and plan *Acute UTI: - urine culture notes "Enterococcus species" - continue ceftriaxone 1 gm daily - add nitrofurantoin - monitor cultures for sensitivity *JONES (acute kidney injury): - resolved - stop IVF - resume spironolactone, torsemide, lisinopril as needed *Type 2 diabetes mellitus with hyperglycemia: - continue Lantus and SSI - hold dapagliflozin, resume at discharge *Atrial fibrillation: - continue diltiazem and apixaban *h/o chronic diastolic(III) CHFand RHFw/moderate MR(valvular dz): and borderli ne low systolic *Obese: BMI 32 *PVD: follows with Dr. 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
--- NOTE | 2022-08-30 15:20 | Discharge Summary ---
Discharge Provider Provider IMPORTANT FOLLOW-UP INFORMATION FOR PCP: Patient information: Note initiated : 08/30/22 at 3:18 pm Service Date, if different from initiated Date: [] Patient: Candice Khan a 81 y/o F admitted on 08/28/22 for UTI. Chief Complaint: [] Date of admission: 08/28/22 21:30 Discharge date: 09/01/22 Primary care physician: Noe Villatoro DO Consults: 08/29/22 09:25 Consult to Physician [CONS] Routine Comment: SNF / LTC referral Consulting Provider: [facility] Marcus Reason For Exam: Physician to Consult COURSE Hospital Course Hospital course: Interval history: Ms. Khan is a 81 year old F with peristent afib, IDDM, HTN, HLD, PVD, HFpEF. Pt sent from [facility] for JONES and UTI. She was reportedly found to have UTI at SNF treated with PO cipro but patient worsened. adn she was sent to the ED for further evaluation and management. Workup in the ED notable for Cr 2.1, most recently normal and positive UA. Pt was given IVF and ceftriaxone and admission requested. Urine Cx was obtained and is pending. Aug 29, BUN/Cr improved to 40/1.0 and WBC improved to 8.9 from 12.8. Urine Cx is "Enterococcus species." Will add nitrofurantoin to ceftriaxone until further ID and Sensitivity resulted. Aug 30, JONES corrrected, IVF stopped. Urine Cx still reported as enterococcus species, no sensitivities. Will await sensitivity for D/C. 08/31 No overnight event or new complaints. Metabolic acidosis noted, mildly improved. Awaiting sensitivities for Enterococcus. Assessment and plan *Acute UTI: - urine culture notes "Enterococcus species" -ABX *JONES (acute kidney injury): *Type 2 diabetes mellitus with hyperglycemia: *Atrial fibrillation: *h/o chronic diastolic(III) CHFand RHFw/moderate MR(valvular dz): and borderline low systolic *Obese: BMI 32 *PVD: follows with Dr. 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, poorly controlled *COPD(not on Home O2): *HTN/HLD: *Depression/anxiety: *GERD: *ppx: apixaban Discharge diagnosis: UTI acute kidney injury Secondary discharge diagnosis: Diabetes hypertension atrial fibrillation chronic diastolic heart failure and right heart failure peripheral vascular disease obesity tobacco abuse diabetes with neuropathy COPD hypertension hyperlipidemia depression anxiety GERD Time Spent with Patient Time attestation: Total time spent providing and/or coordinating discharge services: Time spent: Greater than 30 minutes EXAM Constitutional Vitals: Temp Pulse Resp BP Pulse Ox O2 Del Method 98.4 F 91 H 20 155/93 97 Room Air 08/30/22 12:00 08/30/22 12:00 08/30/22 12:00 08/30/22 12:00 08/30/22 12:00 08/30/22 12:00 Discharge Data Data Completed and Pending Labs on day of discharge: Labs from last 24 hours 08/30/22 08/30/22 06:05 06:05 WBC 8.2 RBC 4.27 Hgb 12.0 Hct 37.2 MCV 87.1 MCH 28.1 MCHC 32.3 RDW 17.0 H Plt Count 270 MPV 9.9 Immature Gran % (Auto) 0.9 H Neut % (Auto) 68.7 Lymph % (Auto) 18.8 [place] % (Auto) 8.4 Eos % (Auto) 2.3 Baso % (Auto) 0.9 Lymph # (Auto) 1.54 [place] # (Auto) 0.69 Eos # (Auto) 0.19 Baso # (Auto) 0.07 Immature Gran # 0.07 H Absolute Neutrophils 5.63 Sodium 136 Potassium 3.5 Chloride 108 Carbon Dioxide 15 L Anion Gap 13.0 BUN 16 Creatinine 0.7 GFR Calculation 80 Glucose 118 H Calcium 8.4 L Preliminary micro results at discharge 08/28/22 15:50 Urine Culture - Preliminary Urine - Clean Void Mid-Stream Enterococcus species Discharge Plan Patient/Caregiver Discharge Instructions Activity: increase activity as tolerated Diet: Consistent Carbohydrate Prescriptions: New amoxicillin 500 mg tablet 500 mg PO TID Qty: 6 0RF Continued diphenhydramine HCl 25 mg capsule 25 mg PO Q8H PRN (Reason: Insomnia) Ensure Original Liquid 1 each PO TIDWMEAL Qty: 1422 6RF escitalopram oxalate 5 mg tablet 5 mg PO QHS Qty: 90 1RF blood-glucose meter [True Metrix Glucose Meter] Misc See Rx Instructions .ROUTE .COMPLEX Qty: 1 3RF Dose Instruction: TEST four times a day Rx Instructions: TEST four times a day (DME) pen needle, diabetic [Comfort EZ Pen [place]] 31 gauge x 5/16" needle See Rx Instructions .ROUTE .MEDSUPPLY Qty: 1200 3RF Rx Instructions: Use to inject Fiasp and Lantus True Metrix Glucose Test Strip Strip See Rx Instructions .ROUTE .COMPLEX Qty: 300 3RF Dose Instruction: use 1 TEST STRIP to TEST BLOOD SUGAR four times a day Rx Instructions: use 1 TEST STRIP to TEST BLOOD SUGAR four times a day ondansetron HCl 4 mg tablet See Rx Instructions .ROUTE .COMPLEX Qty: 30 1RF Dose Instruction: TAKE ONE TABLET BY MOUTH NEEDED FOR NAUSEA, MAX 2/DAY Rx Instructions: TAKE ONE TABLET BY MOUTH NEEDED FOR NAUSEA, MAX 2/DAY Eliquis 2.5 mg tablet 2.5 mg PO BID Qty: 180 3RF potassium chloride [Klor-Con M20] 20 mEq tablet,ER particles/crystals 20 meq PO BID Qty: 180 1RF gabapentin 600 mg tablet See Rx Instructions .ROUTE .COMPLEX Qty: 90 3RF Dose Instruction: take 1 tablet by mouth three times a day Rx Instructions: take 1 tablet by mouth three times a day carbidopa-levodopa 10-100 mg tablet See Rx Instructions .ROUTE .COMPLEX Qty: 180 1RF Dose Instruction: take 1 tablet by mouth twice a day Rx Instructions: take 1 tablet by mouth twice a day albuterol sulfate 90 mcg/actuation HFA aerosol inhaler 2 puff INHALATION QID PRN (Reason: shortness of breath or wheezing) Qty: 18 3RF dapagliflozin 5 mg tablet 5 mg PO QAM Qty: 90 3RF spironolactone 25 mg tablet 25 mg PO QDAY Qty: 90 0RF torsemide 10 mg tablet 10 mg PO .3 a day Qty: 90 3RF Rx Instructions: take 20mg in morning, and 10mg around noon atorvastatin [Lipitor] 80 mg tablet 80 mg PO QDAY Qty: 90 1RF diltiazem HCl 360 mg capsule,extended release 24 hr 360 mg PO QAM Qty: 30 4RF Breztri Aerosphere 160-9-4.8 mcg/actuation HFA aerosol inhaler 2 inh inhalation QAM AND QPM Qty: 10.7 5RF pantoprazole 40 mg tablet,delayed release (DR/EC) 40 mg PO QDAY lisinopril 2.5 mg Tablet 2.5 mg PO DAILY Qty: 30 0RF insulin glargine [Basaglar KwikPen U-100 Insulin] 100 unit/mL (3 mL) insulin pen 32 unit subcut BID bisacodyl [Dulcolax (bisacodyl)] 10 mg Suppository 10 mg MI QDAY PRN (Reason: Constipation) insulin lispro [Humalog KwikPen Insulin] 100 unit/mL Insulin Pen See Rx Instructions .ROUTE .COMPLEX Rx Instructions: as per sliding scale Fleet Enema 19-7 gram/118 mL Enema See Rx Instructions .ROUTE .COMPLEX Rx Instructions: as directed on box, prn for constipation hydrocodone-acetaminophen 7.5-325 mg tablet 1 tab PO Q4-6H PRN (Reason: pain) Qty: 10 0RF Rx Instructions: Can fill can fill 07/28/22 Follow Up Plan Follow up with: Noe Villatoro DO [Primary Care Provider] - Patient Disposition: Xfer SNF Prognosis: Fair Rehab Potential: Fair I certify that the patient requires SNF services: Yes Overall status at discharge: patient is progressing back to baseline Discharge Orders: Discharge Order (Routine); Ordered 09/01/22 Ordered By: Daniel Hoyt
[2022-08-30] MEDS: SODIUM BICARBONATE 650 MG TABLET PO SCH ×2 (15:22→20:27)
[2022-08-30] MEDS: SENNOSIDES 1 TABLET PO SCH (20:14)
[2022-08-30] MEDS: ESCITALOPRAM 10 MG TABLET PO SCH (20:27)
[2022-08-31] MEDS: 0.9 % SODIUM CHLORIDE 10 ML SYRINGE IV SCH ×3 (05:28→20:19)
[2022-08-31 06:49] LABS: Blood Urea Nitrogen 10 mg/dL (8-23); Calcium 8.6 mg/dL (8.6-10.4); Carbon Dioxide 19 mmol/L (22-30); Chloride 107 mmol/L (96-108); Glomerular Filtration Rate 68; Glucose 86 mg/dL (70-105)
[2022-08-31] MEDS: INSULIN LISPRO 1 UNIT/0.01 ML UNIT SQ SCH ×4 (07:33→20:18)
--- NOTE | 2022-08-31 07:42 | Internal Med Progress Note ---
SUBJECTIVE Subjective Patient information: Note initiated : 08/31/22 at 7:39 am Service Date, if different from initiated Date: [] Patient: Candice Khan a 81 y/o F admitted on 08/28/22 for UTI. Chief Complaint: [] Interval history: Ms. Khan is a 81 year old F with peristent afib, IDDM, HTN, HLD, PVD, HFpEF. Pt sent from [facility] for JONES and UTI. She was reportedly found to have UTI at SNF treated with PO cipro but patient worsened. adn she was sent to the ED for further evaluation and management. Workup in the ED notable for Cr 2.1, most recently normal and positive UA. Pt was given IVF and ceftriaxone and admission requested. Urine Cx was obtained and is pending. Aug 29, BUN/Cr improved to 40/1.0 and WBC improved to 8.9 from 12.8. Urine Cx is "Enterococcus species." Will add nitrofurantoin to ceftriaxone until further ID and Sensitivity resulted. Aug 30, JONES corrrected, IVF stopped. Urine Cx still reported as enterococcus spec ies, no sensitivities. Will await sensitivity for D/C. 08/31 No overnight event or new complaints. Metabolic acidosis noted, mildly improved. Awaiting sensitivities for Enterococcus. Review of Systems: denies headache/fever/chills/nausea/vomiting/chest or abdominal pain/cough/dyspnea/diarrhea. Otherwise see above. PHYSICAL EXAM General: Alert, Awake, No acute Distress, obese Eyes/N/T: EOMI, no scleral icterus, Head/Neck: neck supple, full ROM, CV: RRR, No murmurs, Pulm: Clear b/l, no wheezing/rhonchi/rales, no respiratory distress Abd: soft, nontender, +BS x4 Ext: no clubbing/cyanosis/edema, nontender Neuro: Alert, no focal deficits, moves all extremities, , sensations intact b/l upper/lower Psychiatric: Skin: warm/dry, normal color Constitutional Vitals: Vital Signs Temp Pulse Resp BP Pulse Ox O2 Del Method 98.4 F 83 18 141/61 98 Room Air 08/31/22 07:34 08/31/22 07:34 08/31/22 07:34 08/31/22 07:34 08/31/22 07:34 08/31/22 07:34 Period Temp Pulse Resp BP Sys/Purvis Pulse Ox O2 Del Method O2 Flow Rate Last 24 Hr 97.1 F-98.6 F 76-107 18-22 128-155/55-93 96-99 Room Air-Room Air Intake and Output 08/30/22 08/31/22 08/31/22 19:59 03:59 11:59 Intake Total 740 300 Output Total 150 Balance 740 150 Weight 74.888 kg Intake & Output: Intake & Output 08/30/22 08/31/22 08/31/22 19:59 03:59 11:59 Intake Total 740 300 Output Total 150 Balance 740 150 Weight 74.888 kg Intake: Nourishment/Supplement quantity 240 (ml) Oral 500 300 Output: Void Amount 150 Other: Meal Lunch Percent of Meal Consumed 25% Feeding Ability Assist with Tray Set Up Nourishment/Supplement name glucerna Urine Appearance Clear Urine Color Bright Yellow Urine Odor Normal OBJ DATA Labs 08/30/22 06:05 08/31/22 05:35 Labs: Abnormal Lab Results 08/31/22 08/30/22 08/30/22 05:35 06:05 06:05 WBC RDW 17.0 H Immature Gran % (Auto) 0.9 H Lymph % (Auto) [place] # (Auto) Immature Gran # 0.07 H Absolute Neutrophils POC Sodium Sodium POC Potassium Carbon Dioxide 19 L 15 L POC Total CO2 POC BUN BUN POC Creatinine Glucose 118 H POC Glucose Calcium 8.4 L Alkaline Phosphatase Urine Appearance Urine Glucose (UA) Ur Leukocyte Esterase Urine WBC Urine Bacteria Urine Yeast (Budding) 08/29/22 08/29/22 08/28/22 05:46 05:46 15:50 WBC RDW 17.2 H Immature Gran % (Auto) 0.6 H Lymph % (Auto) [place] # (Auto) Immature Gran # Absolute Neutrophils POC Sodium Sodium 132 L POC Potassium Carbon Dioxide 18 L POC Total CO2 POC BUN BUN 40 H POC Creatinine Glucose POC Glucose Calcium 8.5 L Alkaline Phosphatase Urine Appearance Cloudy A Urine Glucose (UA) >=500 A Ur Leukocyte Esterase 500 A Urine WBC > 182 H Urine Bacteria Few A Urine Yeast (Budding) Many A 08/28/22 08/28/22 08/28/22 15:42 15:40 15:40 WBC 12.8 H RDW 17.2 H Immature Gran % (Auto) 0.7 H Lymph % (Auto) 12.2 L [place] # (Auto) 0.99 H Immature Gran # 0.09 H Absolute Neutrophils 9.82 H POC Sodium 124 L Sodium POC Potassium 5.5 H Carbon Dioxide POC Total CO2 21.0 L POC BUN 67 H BUN POC Creatinine 2.1 H Glucose POC Glucose 278 H Calcium Alkaline Phosphatase 130 H Urine Appearance Urine Glucose (UA) Ur Leukocyte Esterase Urine WBC Urine Bacteria Urine Yeast (Budding) Meds: Medications Acetaminophen (Acetaminophen 325 Mg Tablet) 650 mg PO Q6HP PRN; Protocol PRN Reason: Per Pain Protocol/Fever > 101 Hydrocodone Bitart/Acetaminophen (Hydrocodone/Apap 7.5/325mg Tablet) 1 tab PO Q4-6HP PRN PRN Reason: Pain Apixaban (Apixaban 5 Mg Tablet) 2.5 mg PO BID [facility] Last Admin: 08/30/22 20:27 Dose: 2.5 mg Atorvastatin Calcium (Atorvastatin 40 Mg Tablet) 80 mg PO QDAY [facility] Last Admin: 08/30/22 08:24 Dose: 80 mg Carbidopa/Levodopa (Carbidopa/Levodopa 10/100 Tablet) 1 tab PO BID [facility] Last Admin: 08/30/22 20:27 Dose: 1 tab Ceftriaxone Sodium (Ceftriaxone 1 Gm Vial) 1 gm IV DAILY [facility]; Protocol Last Admin: 08/30/22 08:24 Dose: 1 gm Dextrose (Dextrose 50% 50 Ml Vial) 0 ml IV UD PRN PRN Reason: Per Sliding Scale Diagnostic Test (Pha) (Accu-Chek 1 Each Strip) 1 each FS ACHS [facility] Last Admin: 08/31/22 07:33 Dose: 1 each Diltiazem HCl (Diltiazem 120 Mg Cap.Xl.24h) 360 mg PO DAILY [facility] Last Admin: 08/30/22 08:24 Dose: 360 mg Docusate Sodium (Docusate Sodium 100 Mg Capsule) 100 mg PO BID [facility] Last Admin: 08/30/22 20:14 Dose: Not Given Escitalopram Oxalate (Escitalopram 10 Mg Tablet) 5 mg PO QHS [facility] Last Admin: 08/30/22 20:27 Dose: 5 mg Glucose (Dextrose 31 Gm Oral.Susp) 15 gm PO PRN PRN PRN Reason: Hypoglycemia Insulin Glargine (Insulin Glargine, Human 1 Unit/0.01 Ml) 15 unit SQ BID [facility] Last Admin: 08/30/22 20:29 Dose: 15 units Insulin Human Lispro (Insulin Lispro 1 Unit/0.01 Ml Unit) 0 unit SQ [facility]; Protocol Last Admin: 08/31/22 07:33 Dose: Not Given Nitrofurantoin Macrocrystals (Nitrofurantoin Sr 100 Mg Capsule) 100 mg PO BID [facility] Last Admin: 08/30/22 20:27 Dose: 100 mg Ondansetron HCl (Ondansetron 4 Mg/2 Ml Vial) 4 mg IV Q6HP PRN PRN Reason: Nausea And Vomiting Last Admin: 08/30/22 09:25 Dose: 4 mg Pantoprazole Sodium (Pantoprazole 40 Mg Tablet) 40 mg PO QDAY [facility] Last Admin: 08/30/22 08:25 Dose: 40 mg Senna (Sennosides 1 Tablet) 2 tab PO HS [facility] Last Admin: 08/30/22 20:14 Dose: Not Given Sodium Chloride (0.9 % Sodium Chloride 10 Ml Syringe) 10 ml IV Q8 [facility] Last Admin: 08/31/22 05:28 Dose: 10 ml A/P Narrative A/P Narrative: Assessment and plan *Acute UTI: - urine culture notes "Enterococcus species" - continue ceftriaxone 1 gm daily - add nitrofurantoin - monitor cultures for sensitivity *JONES (acute kidney injury): - resolved - stop IVF - resume spironolactone, torsemide, lisinopril as needed *Metabolic acidosis: *Type 2 diabetes mellitus with hyperglycemia: - continue Lantus and SSI - hold dapagliflozin, resume at discharge *Atrial fibrillation: - continue diltiazem and apixaban *h/o chronic diastolic(III) CHFand RHFw/moderate MR(valvular dz): and borderline low systolic *Obese: BMI 32 *PVD: follows with Dr. 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
[2022-08-31] MEDS: cefTRIAXone 1 GM VIAL IV SCH (09:01)
[2022-08-31] MEDS: CARBIDOPA/LEVODOPA 10/100 TABLET PO SCH ×2 (09:02→20:19)
[2022-08-31] MEDS: APIXABAN 5 MG TABLET PO SCH ×2 (09:02→20:18)
[2022-08-31] MEDS: DILTIAZEM 120 MG CAP.XL.24H PO SCH (09:02)
[2022-08-31] MEDS: ATORVASTATIN 40 MG TABLET PO SCH (09:02)
[2022-08-31] MEDS: PANTOPRAZOLE 40 MG TABLET PO SCH (09:02)
[2022-08-31] MEDS: INSULIN GLARGINE, HUMAN 1 UNIT/0.01 ML SQ SCH ×2 (09:02→20:18)
[2022-08-31] MEDS: NITROFURANTOIN SR 100 MG CAPSULE PO SCH ×2 (09:02→20:19)
[2022-08-31] MEDS: DOCUSATE SODIUM 100 MG CAPSULE PO SCH ×2 (09:03→20:33)
[2022-08-31] MEDS ORDERED: POTASSIUM CHLORIDE 20 MEQ TABLET PO ONE (09:52)
[2022-08-31] MEDS: HYDROCODONE/APAP 7.5/325MG TABLET PO PRN (19:57)
[2022-08-31] MEDS: ESCITALOPRAM 10 MG TABLET PO SCH (20:19)
[2022-08-31] MEDS: SENNOSIDES 1 TABLET PO SCH (20:33)
[2022-09-01] MEDS: INSULIN LISPRO 1 UNIT/0.01 ML UNIT SQ SCH ×2 (07:51→12:51)
[2022-09-01] MEDS: 0.9 % SODIUM CHLORIDE 10 ML SYRINGE IV SCH (07:51)
[2022-09-01] MEDS: NITROFURANTOIN SR 100 MG CAPSULE PO SCH (09:00)
[2022-09-01] MEDS: HYDROCODONE/APAP 7.5/325MG TABLET PO PRN ×2 (09:00→12:51)
[2022-09-01] MEDS: PANTOPRAZOLE 40 MG TABLET PO SCH (09:01)
[2022-09-01] MEDS: DILTIAZEM 120 MG CAP.XL.24H PO SCH (09:01)
[2022-09-01] MEDS: APIXABAN 5 MG TABLET PO SCH (09:01)
[2022-09-01] MEDS: CARBIDOPA/LEVODOPA 10/100 TABLET PO SCH (09:01)
[2022-09-01] MEDS: ATORVASTATIN 40 MG TABLET PO SCH (09:01)
[2022-09-01] MEDS: INSULIN GLARGINE, HUMAN 1 UNIT/0.01 ML SQ SCH (09:01)
[2022-09-01] MEDS: cefTRIAXone 1 GM VIAL IV SCH (09:02)
[2022-09-01] MEDS: DOCUSATE SODIUM 100 MG CAPSULE PO SCH (09:02)
== END 2022-09-01 13:12 | DRG 690 ==
LOC: ED 14:37 → MEDSUR 21:30
PROVIDERS: ADMIT Internal Medicine; ATTEND Internal Medicine